=== PATIENT | male | born 1935 | race Caucasian/White ===

== ENCOUNTER → 2018-05-15 12:45 | Outpatient (CLI) | payer MEDICARE, SELFPAY ==
--- NOTE | 2018-05-15 12:49 | CT_ITS ---
STUDY: CT CHEST WITH CONTRAST REASON FOR EXAM: Male, 82 years old. Left lower lobe pulmonary lesion. Longtime smoker. RADIATION DOSAGE (If Supplied By Facility): CTDIvol = ( 16.56 ) mGy, DLP = ( 725.16 ) mGycm TECHNIQUE: Transaxial imaging was performed following intravenous administration of 100 ml of Isovue 300 contrast material. Multiplanar coronal and sagittal images were reformatted. Individualized dose optimization techniques were used for this CT. COMPARISON: None. FINDINGS: Moderate sized left pleural effusion. Airspace disease in the lateral aspect of the left upper lobe. Dense consolidation or mass lesion in the posterior medial segment of the left lower lobe measuring 6.3 cm x 4 cm. Minimal right pleural thickening. There is a 3.6 cm x 3.8 cm soft tissue mass in the right infrahilar region with compression of the inferior wall of the right intermediate stem bronchus. A neoplastic process should be ruled out. There is loss of volume of the left hemithorax with shift of the heart and mediastinal structures towards the left side of the midline. Normal heart and pericardium. There are multiple small lymph nodes within the mediastinum, which are normal in size and morphology most compatible with reactive lymph hyperplasia. Normal hilar regions. Normal enhanced pulmonary arteries. Normal aorta arch and descending thoracic aorta. There are multi-level degenerative changes of the thoracic spine. Small hiatal hernia. CT/Chest WITH Contrast IMPRESSION: Moderate sized left pleural effusion with airspace disease in the lateral aspect of the left upper lobe as well as dense consolidation or mass lesion in the posteromedial segment of the left lower lobe. 3.6 cm x 3.8 cm mass in the right infrahilar region with underlying right basilar atelectasis and pleural thickening. Correlation with a PET scan is recommended. Electronically Signed: Momo Burns MD at 15:11 EDT Tel [phone], Service support ,
== END ==
PROVIDERS: Family Provider Family Medicine; PCP Family Medicine; Visit Provider Family Medicine
DX: R91.1 Solitary pulmonary nodule (principal)
CPT/HCPCS: 71260; Q9967

== ENCOUNTER → 2018-05-29 11:19 | Outpatient (CLI) | payer MEDICARE, SELFPAY ==
--- NOTE | 2018-05-29 11:44 | PET_ITS ---
EXAMINATION: FDG PET CT INDICATIONS: An 82-year-old male with reported history of carcinoma of the prostate presenting for restaging examination and evaluation of pulmonary nodularity. COMPARISON EXAMINATION: CT of the chest report dated 05/15/18. INDEX LESION SIZE SUV INTERPRETATION Right lower hemithorax pulmonary parenchyma, right lower lobe 37.8 mm x 44.9 mm (frame 202) 11.0 Fulfills quantitative criteria for viable neoplasm, definitive histopathologic analysis is recommended NON-INDEX LESION SIZE SUV INTERPRETATION Carinal level mediastinum, right thoracic perihilum 2.7 (max) Quantitative criteria for viable neoplasm are not fulfilled Left mid-lower hemithorax pulmonary parenchyma, non-nodular 2.0 (max) Quantitative criteria for viable neoplasm are not fulfilled TECHNIQUE: Following the intravenous administration of 15.9 mCi of F-18 deoxyglucose via the left hand, multiplanar image acquisitions of the neck, chest, abdomen and pelvis to level of mid thigh, obtained at one hour post radiopharmaceutical administration contemporaneously interpreted with the current CT of the neck, chest, abdomen and pelvis to level of mid thigh, dated 05/29/[address] of the chest report dated 05/15/18 reveal: SERUM GLUCOSE LEVEL: 96 mg/dl. HEIGHT: 72 inches. WEIGHT: 253 lbs. FINDINGS: 1. Increased glucose concentration is observed in the right mid posteromedial hemithorax pulmonary parenchyma, right lower lobe, perispinal in location generating a calculated maximum standard uptake value of 11.0. The maximal axial diameter of the corresponding parenchymal density-mass on review of CT of the thorax dated 05/29/18 is 37.8 mm (transverse) x 44.9 mm (AP). 2. An increase in glucose metabolism is defined in the carinal level mediastinum, right thoracic perihilum generating a calculated maximum standard uptake value of 2.7. 3. Linear increased glucose concentration is observed in the left mid hemithorax pulmonary parenchyma, left lower posterior lung zone generating a calculated standard uptake value of 2.0. Quantitative criteria for viable neoplasm are not fulfilled. Normal physiologic distribution of the radiopharmaceutical is apparent in the hepatic (3.3) and splenic parenchyma, both renal units, bladder and visualized intestinal tract. There is symmetric and preserved glucose metabolism noted in the visualized portion of the frontal, occipital, temporal and parietal lobes of the cerebral cortex, as well as cerebral hemispheres and basal ganglia. Diffuse intestinal tract activity is noted throughout all four quadrants of the abdominal-pelvic retroperitoneum, mesentery consistent with normal physiologic distribution of the radiopharmaceutical. Prominent glucose metabolism is defined in the descending thoracic aorta. Pertinent CT findings are as follows. CHEST: Bilateral hemithorax pleural effusions demonstrate no evidence of increased glucose metabolism. Atherosclerotic calcification is defined in the thoracic aorta without evidence of dilatation, aneurysm formation. Coronary arterial calcification is observed. Mediastinal and bilateral axillary soft tissue densities are ametabolic. ABDOMEN AND PELVIS: Atherosclerotic calcification is defined in the abdominal aorta without evidence of dilatation, aneurysm formation. Abdominal-pelvic arterial calcification is observed. Cortical cyst formation appears evident in the bilateral kidneys, the largest of which demonstrates a maximal axial diameter of 21.1 mm (AP). Calcifications are defined in the left kidney. Right-left inguinal soft tissue densities are non-glucose avid. SKELETAL: Degenerative changes defined in the cervical, thoracic and lumbar spine demonstrate no evidence for glucose hypermetabolism. PET/PET/CT Tumor Base -Thigh Init IMPRESSION: 1. Increased glucose metabolism manifest in the right mid posteromedial hemithorax pulmonary parenchyma, right lower lobe fulfills quantitative criteria for viable neoplasm. Definitive histopathologic analysis is recommended. (Fisher et al, Annals of Internal Medicine, 138:724, 2003). 2. Mediastinal and right thoracic perihilar increased glucose concentration does not fulfill quantitative criteria for viable neoplasm. (Tiffanie et al, Journal of Clinical Oncology 16:2142, 1998). 3. Mild increased glucose concentration observed in the left mid-lower posterior lung zones does not fulfill quantitative criteria for malignant transformation. 4. Facilitated FDG concentration noted in the descending thoracic aorta is commensurate with activated leukocytes associated with atherosclerotic plaque formation. (Augustus et al, Clinical Nuclear Medicine 29:93, 2004). Electronic Signature Byron Woo D.O. Electronically Signed: Byron Woo DO at 7:21 EDT Tel , Service support ,
== END ==
PROVIDERS: Family Provider Family Medicine; PCP Family Medicine; Visit Provider Nurse Practitioner Adult Health
DX: R91.8 Other nonspecific abnormal finding of lung field (principal); Z85.46 Personal history of malignant neoplasm of prostate
CPT/HCPCS: 78815; A9552; A4216

== ENCOUNTER → 2018-07-05 08:58 | Outpatient (CLI) | payer MEDICARE, SELFPAY ==
[2018-07-05] VITALS (9 sets, daily range): BP systolic 114–157; BP diastolic 48–71; PULSE 84–93; RESP 17–55; TEMP 36.9; O2SAT 88–98; BMI 30.3
--- NOTE | 2018-07-05 | ASPIGT_PTH ---
PATIENT: DANIEL DIAZ LOC: CT U#:[id number] AGE/SX: 89/M ROOM: RE07/05/[address]: Dr. Heladio Rios MD : 1935 BED: DIS: SPEC #: [id number] RECD: 07/05/18 11:16 STATUS: SUJATHA AVILAChristian #: [id number] BELL: 07/05/18 00:[address]: Heladio Rios DEPT: SURGICAL PATHOLOGY RECD BY: Max Arguelles Tissues: Right middle lobe of lung, NOS Procedures: FNA Specimen Adequacy Special Stain Group II Surgery Specimen Level IV Diff Quik Stain (control) Imprint (control) HEADER OPERATION: CT guided right lung biopsy PRE-OP DIAGNOSIS: Right lung mass TISSUE SUBMITTED: Right middle lobe lung mass, 20 gauge core x4 MICROSCOPIC DIAGNOSIS Right middle lobe lung mass, CT-guided core biopsy: Non-small cell carcinoma, favor squamous cell carcinoma. SJ:estuardo 8/16/18 COMMENT The specimen is evaluated at the time of CT-guided lung biopsy by Dr. Ayala. Immediate Evaluation: Pass #1 ? A few atypical cells noted suspicious for malignancy Pass #2 ? A few atypical cells noted. Immunohistochemistry ([id number]) supports the above diagnosis. If molecular studies on the tumor is needed, please notify the laboratory. Case has been reviewed in consultation with Dr. Russell who concurs with the above diagnosis. IDC:AM MICROSCOPIC DESCRIPTION Slides are reviewed. GROSS DESCRIPTION Received in fixative is one container labeled with the patient's name and designated right lung. The specimen consists of multiple irregular and elongated fragments of light aragon soft tissue that in aggregate measure 1 x 0.5 x <0.1 cm. The specimen is totally submitted in one cassette. / PATRICK:estuardo 07/05/18 TC:0 CPT: 79962, 69999, 40344
--- NOTE | 2018-07-05 | IMM_PTH ---
PATIENT: DANIEL DIAZ LOC: CT U#:[id number] AGE/SX: 89/M ROOM: RE07/05/[address]: Dr. Heladio Rios MD : 1935 BED: DIS: SPEC #: [id number] RECD: 07/06/18 12:50 STATUS: SUJATHA AUSTINChristian #: [id number] BELL: 07/05/18 00:[address]: Heladio Rios DEPT: IMMUNOHISTOCHEMISTRY RECD BY: Celi Farmer Tissues: Lung, NOS Procedures: RCC (add) NAPSIN A (add) CK20 (add) CK5-6 (add) CK8 (add) HEP PAR (add) PSA (add) TTF1 (add) P40 (add) CK7 (initial) PHYSICIAN & INSTITUTION [place] [address] SPECIMEN INFORMATION: Tissue Source: Right middle lobe lung mass Clinical Info: Right lung mass Specimen Number: [id number] CPT code: 61698, 47722 x9 METHODOLOGY: Deparaffinized sections of prefer/formalin-fixed tissue or PAP/DQ stained slides are incubated with monoclonal/polyclonal antibodies/oligonucleotide probes. Localization is made via biotin free immunoperoxidase method. Appropriate controls are performed and reacted as expected. Results on target cell population are indicated in the following table: RESULTS: ANTIBODY / CLONE RESULT CK7 (OV-TL12/30) negative CK8 (24lkmsJ64) positive CK20 (KS20.8) negative TTF-1 (8G7G3/1) negative Napsin A (Rabbit Polyclonal) negative HepPar (OCh1E5) negative RCC (PN-15) negative PSA (ER-PR8) negative CK5-6 (D5 & 1684) positive P40 (BC28) positive These tests were developed and their performance characteristics determined by [facility]. They may not have been cleared or approved by the U.S. Food and Drug Administration. The FDA has determined that such clearance or approval is not necessary. INTERPRETATION: Right middle lobe lung mass, CT-guided biopsy: Non-small cell carcinoma, favor squamous cell carcinoma. ISSA:estuardo 07/07/18
== END ==
PROVIDERS: Family Provider Family Medicine; PCP Family Medicine; Visit Provider Family Medicine
DX: R91.8 Other nonspecific abnormal finding of lung field (principal)
CPT/HCPCS: 32405; 71046; 77012; 88172; 88305; 88313; 88341; 88342; 99156; 99157; J7040; A4216

== ENCOUNTER → 2018-07-27 10:07 | Outpatient (CLI) | payer MEDICARE, SELFPAY ==
--- NOTE | 2018-07-27 | FLU_PTH ---
PATIENT: DANIEL DIAZ LOC: MRI U#:[id number] AGE/SX: 89/M ROOM: RE07/27/[address]: Dr. Jimmie Teran MD : 1935 BED: DIS: SPEC #: [id number] RECD: 07/27/18 14:11 STATUS: SUJATHA REChristian #: [id number] BELL: 07/27/18 00:[address]: Jimmie Teran DEPT: CYTOLOGY RECD BY: Horacio Caceres ENTERED: 07/27/18 14:11 SP TYPE: Fluid OTHR DR: Dr. Heladio Rios MD Tissues: THORACIC FLUID Procedures: Pap Stain (control) Special Stain Group II Surgery Specimen Level IV Cell Block Cytospin Fluid HEADER OPERATION: Ultrasound-guided thoracentesis - left PRE-OP DIAGNOSIS: Pleural effusion TISSUE SUBMITTED: Thoracentesis fluid for cytology DIAGNOSIS CYTOLOGY Thoracentesis fluid for cytology (cytospin and cell block): Negative for malignant cells. AM:estuardo 07/28/18 COMMENT The specimen primarily contains polymorphous lymphocytes and rare reactive mesothelial cells. Immunohistochemistry ([id number]) supports the above diagnosis. CYTOLOGY STUDY Slides are reviewed. CYTOLOGY GROSS Received is 100 ml of red, cloudy fluid labeled with the patient's name and and designated per the requisition as thoracentesis. Submitted for cytology preparation including cell block. 07/27/18 TC:3 CPT: 41734, 74431
--- NOTE | 2018-07-27 | IMM_PTH ---
PATIENT: DANIEL DIAZ LOC: MRI U#:[id number] AGE/SX: 89/M ROOM: RE07/27/[address]: Dr. Jimmie Teran MD : 1935 BED: DIS: SPEC #: [id number] RECD: 07/28/18 11:34 STATUS: SUJATHA REQ #: [id number] BELL: 07/27/18 00:[address]: Jimmie Teran DEPT: IMMUNOHISTOCHEMISTRY RECD BY: Celi Farmer ENTERED: 07/28/18 11:35 SP TYPE: IMMUNO OTHR DR: Dr. Heladio Rios MD Tissues: THORACIC FLUID Procedures: CD138 (add) CD20 (add) CD45 (add) CD5 (add) CD79A (add) CD3 (initial) PHYSICIAN & INSTITUTION [place] [address] SPECIMEN INFORMATION: Tissue Source: Thoracentesis fluid Clinical Info: Pleural effusion Specimen Number: [id number] CPT code: 84215, 35162 x5 METHODOLOGY: Deparaffinized sections of prefer/formalin-fixed tissue or PAP/DQ stained slides are incubated with monoclonal/polyclonal antibodies/oligonucleotide probes. Localization is made via biotin free immunoperoxidase method. Appropriate controls are performed and reacted as expected. Results on target cell population are indicated in the following table: RESULTS: ANTIBODY / CLONE RESULT CD3 (PS1) positive, small lymphocytes CD5 (SP10) positive CD20 (L26) positive, rare CD45 (RP2/18) positive CD79a (11E3) positive, occasional CD138 (B-A38) negative These tests were developed and their performance characteristics determined by [facility]. They may not have been cleared or approved by the U.S. Food and Drug Administration. The FDA has determined that such clearance or approval is not necessary. INTERPRETATION: Thoracentesis fluid: Polytypic (benign) lymphoid population. AM:estuardo 07/31/18
[2018-07-27 11:06] LABS: Absolute Lymphocyte Count 1.07 X10^3/ul (0.83-4.51); Absolute Neutrophil Count 7.9 X10^3/uL (2.0-7.7); Basophil# 0.02 X10^3/uL; Basophil% 0.2 % (0-1); Eosinophil# 0.19 X10^3/uL; Eosinophils% 1.9 % (0-5); Hematocrit 38.2 % (40-54); Hemoglobin 12.1 g/dl (13.0-16.5); Lymphocyte # 1.07 X10^3/ul (4.0); Lymphocyte % 10.7 % (19-41); Mean Corp Hgb Conc 31.7 g/gl (32-36); Mean Corpuscular Hgb 28.8 pg (27.0-32.0); Mean Platelet Vol. 8.3 fl (6.2-12.0); Monocyte# 0.75 X10^3/uL; Monocyte% 7.5 % (0-10); Neutrophil # 7.91 X10^3/uL (2.7-7.7); Neutrophil % 79.5 % (47-70); Platelet Count 403 K/mm3 (150-450); RBC Distribution Width CV 12.9 % (11.6-14.6); RBC Distribution Width SD 43.1 fl (35.1-43.9)
[2018-07-27 11:07] LABS: Cytology, Body Fluid / CSF SEE PATHOLOGY REPORT
[2018-07-27 11:10] LABS: POSITIVE COUNT NO; POSITIVE DIFFERENTIAL NO; POSITIVE MORPHOLOGY NO
[2018-07-27 11:26] LABS: Creatinine, Serum 1.04 mg/dL (0.70-1.30); EST Glomerular Filtration Rate 73 mL/min (>60); Est Glom Filt Rate - Afr Amer 88 mL/min (>60)
[2018-07-27 11:31] LABS: Prothrombin Time (Protime)PT. 13.6 SECONDS (11.7-14.9)
[2018-07-27 11:32] LABS: Partial Thromboplast Time 40.1 Seconds (24.1-36.2)
[2018-07-27 12:45] VITALS: BP 115/56; PULSE 94; RESP 18; O2SAT 92; BMI 30.3
[2018-07-27 12:58] VITALS: BP 106/53; PULSE 97; RESP 20; O2SAT 92
[2018-07-27 13:17] VITALS: BP 115/62; PULSE 92; RESP 18; O2SAT 92
== END ==
PROVIDERS: Family Provider Family Medicine; PCP Family Medicine; Visit Provider Internal Medicine Medical Oncology
DX: Z01.812 Encounter for preprocedural laboratory examination (principal); Z01.818 Encounter for other preprocedural examination; C34.90 Malignant neoplasm of unspecified part of unspecified bronchus or lung; J90 Pleural effusion, not elsewhere classified
CPT/HCPCS: 32555; 70553; 71046; 82565; 85025; 85610; 85730; 88108; 88305; 88313; 88341; 88342; A9585

== ENCOUNTER → 2018-08-10 13:10 | Outpatient (CLI) | payer MEDICARE, SELFPAY ==
[2018-08-07 14:15] VITALS: BMI 30.4
--- NOTE | 2018-08-10 16:00 | PFTCOMP_ITS ---
COMPLETE PULMONARY FUNCTION TEST INTERPRETATION Brief HPI: Patient is an 82 year old male, currently under the care of Dr. Lake, who presents to [facility] for complete pulmonary function tests secondary to diagnosis of lung cancer. Respiratory therapist reports good effort and reproducible results. Interpretation: Forced expiration spirometry shows a very severe large airways obstructive ventilatory defect with an FEV1 of 35% predicted. There is no significant bronchodilator response by ATS criteria. Spirograms are of good quality and plateau slowly, indicating slowly emptying areas of the lungs. The respiratory flow volume loop shows decreased expiratory flow rates at all lung volumes consistent with airway obstruction. Lung volumes by body plethysmography show a decreased total lung capacity at 4.58 L, 61% predicted. All other lung volumes are reduced symmetrically. Diffusion capacity by carbon monoxide is decreased at 45% predicted. The airway resistance is elevated. No previous pulmonary function tests were available for review. Impression: Very severe mixed ventilatory defect with a symmetric reduction in diffusing capacity. No previous studies are available for review.
== END ==
PROVIDERS: Family Provider Family Medicine; PCP Family Medicine; Visit Provider Student in an Organized Health Care Education/Training Program
DX: C34.90 Malignant neoplasm of unspecified part of unspecified bronchus or lung (principal)
CPT/HCPCS: 94060; 94726; 94729

== ENCOUNTER → 2018-11-22 14:03 | Outpatient (CLI) | payer MEDICARE, SELFPAY ==
[2018-08-07 14:15] VITALS: BMI 30.4
[2018-09-27 11:20] VITALS: BMI 29.0
--- NOTE | 2018-11-22 14:08 | CT_ITS ---
STUDY: CT CHEST WITH CONTRAST REASON FOR EXAM: Male, 83 years old. Lung cancer. History of prostate cancer. COPD. RADIATION DOSAGE (If Supplied By Facility): CTDIvol = ( 16.12 ) mGy, DLP = ( 759.34 ) mGycm TECHNIQUE: Transaxial imaging was performed following intravenous administration of 100 ml of Isovue 300 contrast material. Individualized dose optimization techniques were used for this CT. COMPARISON: None. FINDINGS: Again noted is volume loss on the left with areas of scarring and consolidation with air bronchograms as well as moderate left effusion. Unsure if this is status post surgical intervention versus radiation therapy. Remaining aerated portions of the left lung are essentially clear. There is hyperinflated right lung with flat hemidiaphragm. Small amount of right basilar atelectasis and scarring is noted. Small nodule in the right lung base measuring 3.3 mm. No acute air space disease throughout the right lung. Leftward mediastinal shift is noted. No evidence of large pulmonary embolism. Decreased soft tissue prominence in the medial aspect of the right lower lobe adjacent to the right mainstem bronchus. Currently, soft tissue in this area measures 4.6 cm AP by 1.6 cm wide. Heart size is within normal limits. Normal pericardium. Stable small mediastinal lymph nodes are identified. Normal hilar regions. Normal enhanced pulmonary arteries. Normal aorta arch and descending thoracic aorta. There are multi-level degenerative changes of the thoracic spine. There is no demonstrated abnormality of the visualized upper abdomen. CT/Chest WITH Contrast IMPRESSION: 1. Again noted is left-sided volume loss with scarring, consolidation and air bronchograms as well as effusion. Again noted is leftward mediastinal shift. 2. Decreased soft tissue masslike consolidation along the medial aspect of the right lower lobe as detailed above 3. Essentially clear right lung with some scarring in the right lung base 4. Stable mediastinal lymph nodes 5. Small right lower lobe pulmonary nodule Electronically Signed: Samy Estrada DO at 12:36 EST Tel , Service support ,
[2018-11-22 14:21] LABS: EGFR FINGERSTICK > 60.0000 mL/min (>60)
== END ==
PROVIDERS: Family Provider Family Medicine; PCP Family Medicine; Referring Provider Internal Medicine Medical Oncology; Visit Provider Internal Medicine Medical Oncology
DX: C34.31 Malignant neoplasm of lower lobe, right bronchus or lung (principal)
CPT/HCPCS: 71260; Q9967

== ENCOUNTER → 2018-12-29 14:50 | Outpatient (CLI) | payer MEDICARE, SELFPAY ==
[2018-08-07 14:15] VITALS: BMI 30.4
[2018-12-11 09:44] VITALS: BMI 29.9
--- NOTE | 2018-12-29 14:54 | RAD_ITS ---
STUDY: X-RAY CHEST REASON FOR EXAM: Male, 83 years old. Shortness breath. Pleural effusion. Lung cancer. TECHNIQUE: Frontal and lateral views of the chest. COMPARISON: Chest x-ray 07/27/2018, CT scan 11/22/2018. FINDINGS: Continued markedly abnormal left hemithorax, with continued volume loss and extensive opacification in the mid and lower medial thorax consisting of combination of pleural fluid which may be loculated, probable atelectasis, possible infiltrate cannot exclude mass. Right lung is adequately expanded and clear. Underlying COPD. Heart size difficult to assess because of overlying density but probably mild cardiomegaly. Degenerative changes of the bones. Grossly negative visualized upper abdomen. RAD/Chest PA and Lateral IMPRESSION: No significant change. Continued complex opacities of the left hemithorax with volume loss. Electronically Signed: Adrian Alas MD at 15:51 EST , Service support ,
== END ==
PROVIDERS: Family Provider Family Medicine; PCP Family Medicine; Referring Provider Nurse Practitioner Acute Care; Visit Provider Nurse Practitioner Acute Care
DX: R06.00 Dyspnea, unspecified (principal)
CPT/HCPCS: 71046

== ENCOUNTER → 2019-01-05 07:08 | Outpatient (CLI) | payer MEDICARE, SELFPAY ==
[2018-08-07 14:15] VITALS: BMI 30.4
[2018-12-11 09:44] VITALS: BMI 29.9
--- NOTE | 2019-01-05 07:32 | US_ITS ---
PROCEDURE: ULTRASOUND GUIDED THORACENTESIS. DATE: January 05, 2019. INDICATION: Male, 83 years old. Left pleural effusion PHYSICIAN: Momo Burns M.D. PROCEDURE: The risks, benefits, and alternatives to the procedure were explained to the patient. The specific risks of bleeding, infection, and pneumothorax requiring chest tube insertion were discussed and accepted. Written informed consent was obtained. Ultrasonographic evaluation of the left lower pleural space was carried out. An adequate pocket was identified. The patient was placed in the sitting, upright position. The overlying skin was prepped and draped in sterile fashion. 1% lidocaine was administered subcutaneously for local anesthesia. Under ultrasound guidance, a 5 Kiswahili thoracentesis needle/catheter system was advanced into the left posterior lower pleural fluid collection. Approximately 820 mL of blood tinged fluid was drained. The catheter was removed, and a sterile dressing was applied. A specimen was collected and sent to the laboratory for analysis, as requested by the referring clinician. The patient tolerated the procedure well. A chest x-ray was ordered. US/Thoracentesis W US IMPRESSION: Ultrasound-guided left thoracentesis.. Electronically Signed: Momo Burns MD at 10:58 EST , Service support ,
[2019-01-05 07:42] LABS: Platelet Count 301 K/mm3 (150-450)
[2019-01-05 08:00] LABS: ALB/GLOB Ratio 0.6 RATIO (0.9-2.4); LDH 141 U/L (87-241); Protein, Total 7.9 g/dL (6.4-8.2)
[2019-01-05 08:16] LABS: Prothrombin Time (Protime)PT. 13.6 SECONDS (11.7-14.9)
[2019-01-05 08:17] LABS: Partial Thromboplast Time 37.5 Seconds (24.1-36.2)
--- NOTE | 2019-01-05 09:00 | RAD_ITS ---
STUDY: X-RAY CHEST REASON FOR EXAM: Male, 83 years old. Status post left thoracentesis. TECHNIQUE: AP inspiration and expiration views. COMPARISON: Comparison is made with prior examination dated December 29, 2018. FINDINGS: The patient is status post left thoracentesis. There is no evidence of pneumothorax. Stable pleural-parenchymal changes remain at the left lung base.. RAD/Chest Insp/Exp 2 View IMPRESSION: Status post left thoracentesis. There is no evidence of pneumothorax. Residual left pleural parenchymal changes. Electronically Signed: Momo Burns MD at 8:57 EST , Service support ,
--- NOTE | 2019-01-05 09:10 | FLU_PTH ---
PATIENT: DANIEL DIAZ LOC: U#:[id number] AGE/SX: 89/M ROOM: RE01/05/[address]: MARCY Benítez : 1935 BED: DIS: SPEC #: [id number] RECD: 01/05/19 09:10 STATUS: SUJATHA DA #: [id number] BELL: 01/05/19 09:[address]: Laura Allan NP DEPT: CYTOLOGY RECD BY: Daniel Hargrove ENTERED: 01/05/19 12:37 SP TYPE: Fluid OTHR DR: Dr. Heladio Rios MD Tissues: THORACIC FLUID Procedures: Special Stain Group II Surgery Specimen Level IV Cytospin Fluid Comments: @ Specimen number changed from [id number] to [id number] @ on 01/05/19 at 1502 by RGOOD. HEADER OPERATION: Ultrasound-guided left thoracentesis PRE-OP DIAGNOSIS: Pleural effusion TISSUE SUBMITTED: Thoracentesis fluid for cytology DIAGNOSIS CYTOLOGY Thoracentesis fluid for cytology (cytospin and cell block): Negative for malignant cells. AM:estuardo 01/08/19 COMMENT The specimen contains polymorphous lymphocytes. Clinical correlation is suggested. CYTOLOGY STUDY Slides are reviewed. CYTOLOGY GROSS Received is 100 ml of red cloudy fluid labeled with the patient's name and and designated per the requisition as thoracentesis. Submitted for cytology preparation including cell block. / 01/05/19 TC:5 CPT: 20674, 62155
[2019-01-05 09:14] LABS: Cytology, Body Fluid / CSF SEE PATHOLOGY REPORT
[2019-01-05 09:18] VITALS: BP 110/71; BP 110/74; BP 119/92; BP 132/61; BP 93/54; PULSE 62; PULSE 63; PULSE 77; PULSE 87; RESP 16; RESP 18; O2SAT 93; O2SAT 94; O2SAT 95
[2019-01-05 09:42] LABS: Body Fluid Mononuclear WBC % 95.3 %; Body Fluid Polynuclear WBC % 4.7 %; Body Fluid Total Cells Counted 1.734 10^3/ul
[2019-01-05 10:01] LABS: LDH,Body Fluid 178 Units/l (Not Establ.); Protein, Body Fluid 4.5 g/dL (Not Establ.)
[2019-01-05 10:28] LABS: Appearance/Body Fluid CLOUDY; Auto B Fluid Analyzer BKGD Ct COUNTS W/IN LIMITS (W/IN LIMITS); Body Fluid QC Type(s) BF1Q; Color/Body Fluid RED; Lymphocytes 87 %; Macrophages 6 %; Monocytes 2 %; Neutrophil (Segs) 5 %; Source- Body Fluid THORACENTESIS
[2019-01-08 13:39] LABS: Pathologist Comment/Body Fluid Reviewed
== END ==
PROVIDERS: Family Provider Family Medicine; PCP Family Medicine; Referring Provider Nurse Practitioner Acute Care; Visit Provider Nurse Practitioner Acute Care
DX: J90 Pleural effusion, not elsewhere classified (principal)
CPT/HCPCS: 32555; 36415; 71046; 83615; 84156; 84157; 85049; 85610; 85730; 87070; 87075; 87205; 88108; 88305; 88313; 89050

== ENCOUNTER → 2019-02-27 09:38 | Outpatient (CLI) | payer MEDICARE, SELFPAY ==
[2018-08-07 14:15] VITALS: BMI 30.4
[2019-02-27 09:05] VITALS: BMI 30.2
--- NOTE | 2019-02-27 09:45 | RAD_ITS ---
STUDY: X-RAY CHEST REASON FOR EXAM: Male, 83 years old. Worsening shortness of breath TECHNIQUE: PA and lateral views of the chest. COMPARISON: 01/05/19 FINDINGS: Right lung is hyperexpanded with chronic interstitial changes and development of small pleural effusion since the previous study. There is persistent opacifications in the inferior half the left hemithorax unchanged on the previous study suggesting a likely combination of effusion, atelectasis and perhaps infiltrate. Overall, little significant interval change noted since the previous study. Heart and mediastinum cannot be accurately evaluated due to the opacification in the left hemithorax. Peripheral calcifications noted in the thoracic aorta. There are diffuse degenerative changes of the visualized thoracic spine. Normal visualized ribs, clavicles, and shoulders. There is no demonstrated abnormality of the visualized soft tissue structures of the upper abdomen. RAD/Chest PA and Lateral IMPRESSION: Aside from a new small right pleural effusion, little significant change since the previous study. Electronically Signed: Cali Albrecht MD at 10:57 EDT , Service support ,
[2019-02-27 10:07] LABS: Platelet Count 282 K/mm3 (150-450)
[2019-02-27 10:27] LABS: Anion Gap 4 (5-15); BUN 23 mg/dL (7-18); BUN/Creat Ratio 21.7 RATIO (10-20); Calcium,Total 9.1 mg/dL (8.5-10.1); Chloride 94 mmol/L (98-107); Creatinine, Serum 1.06 mg/dL (0.70-1.30); EST Glomerular Filtration Rate 71 mL/min (>60); Est Glom Filt Rate - Afr Amer 86 mL/min (>60); Glucose 108 mg/dL (74-106); Sodium Level 128 mmol/L (136-145)
[2019-02-27 11:35] LABS: Red Blood Count 4.42 M/mm3 (4.6-6.2); White Blood Count 9.4 K/mm3 (4.4-11.0)
[2019-02-27 11:36] LABS: Differential Indicated SCAN CRITERIA MET; Hematocrit 39.8 % (40-54); Mean Corp Hgb Conc 32.7 g/gl (32-36); Mean Corpuscular Hgb 29.4 pg (27.0-32.0); Mean Platelet Vol. 8.3 fl (6.2-12.0); POSITIVE COUNT NO; POSITIVE DIFFERENTIAL YES; POSITIVE MORPHOLOGY NO
[2019-02-27 11:37] LABS: Basophil% 0.2 % (0-1); Eosinophils% 1.4 % (0-5); Lymphocyte % 5.7 % (19-41); Monocyte% 7.3 % (0-10); Neutrophil % 84.1 % (47-70)
[2019-02-27 11:38] LABS: Absolute Neutrophil Count 7.9 X10^3/uL (2.0-7.7); Lymphocyte # 0.54 X10^3/ul (4.0)
[2019-02-27 11:39] LABS: Absolute Lymphocyte Count 0.54 X10^3/ul (0.83-4.51); Basophil# 0.02 X10^3/uL; Eosinophil# 0.13 X10^3/uL; Monocyte# 0.69 X10^3/uL
[2019-02-27 12:02] LABS: Platelet Estimate ADEQUATE (ADEQ); Red Cell Morphology NORM C+C NORMAL (NORM C&C)
[2019-02-27 12:08] LABS: BNP,B-Type NATRIURETIC PEPTIDE 61.9 pg/mL (0-100)
== END ==
LOC: LAB 09:44 → PAVLAB 10:08
PROVIDERS: Family Provider Family Medicine; PCP Family Medicine; Referring Provider Nurse Practitioner Acute Care; Visit Provider Nurse Practitioner Acute Care
DX: J90 Pleural effusion, not elsewhere classified (principal)
CPT/HCPCS: 36415; 71046; 80048; 83880; 85025

== ENCOUNTER → 2019-03-07 13:06 | Outpatient (CLI) | payer MEDICARE, SELFPAY ==
[2018-08-07 14:15] VITALS: BMI 30.4
[2019-02-27 09:05] VITALS: BMI 30.2
--- NOTE | 2019-03-07 | FLU_PTH ---
PATIENT: DANIEL DIAZ LOC: U#:[id number] AGE/SX: 89/M ROOM: RE03/07/[address]: MARCY Benítez : 1935 BED: DIS: SPEC #: [id number] RECD: 03/07/19 14:57 STATUS: SUJATHA DA #: [id number] BELL: 03/07/19 00:[address]: Laura Allan NP DEPT: CYTOLOGY RECD BY: Horacio Caceres ENTERED: 03/08/19 14:16 SP TYPE: Fluid OTHR DR: Dr. Heladio Rios MD Tissues: THORACIC FLUID Procedures: Special Stain Group II Surgery Specimen Level IV Cytospin Fluid HEADER OPERATION: Ultrasound-guided left thoracentesis PRE-OP DIAGNOSIS: Left pleural effusion TISSUE SUBMITTED: Thoracentesis fluid for cytology DIAGNOSIS CYTOLOGY Thoracentesis fluid for cytology (cytospin and cell block): Negative for malignant cells. ISSA:estuardo 03/09/19 COMMENT Please make reference to previous specimen ([id number]) right middle lobe lung mass, CT-guided core biopsy with diagnosis of non-mall cell carcinoma, favor squamous cell carcinoma and ([id number]) thoracentesis fluid for cytology and ([id number]) thoracentesis fluid for cytology with diagnosis of negative for malignant cells. CYTOLOGY STUDY Slides are reviewed. CYTOLOGY GROSS Received is 120 ml of red cloudy fluid labeled with the patient's name and and designated per the requisition as left thoracentesis. Submitted for cytology preparation including cell block. / 03/08/19 TC:5 CPT: 33316, 21147
--- NOTE | 2019-03-07 13:40 | US_ITS ---
PROCEDURE: ULTRASOUND GUIDED THORACENTESIS. DATE: March 07, 2019. INDICATION: Male, 83 years old. Left pleural effusion PHYSICIAN: Momo Burns M.D. PROCEDURE: The risks, benefits, and alternatives to the procedure were explained to the patient. The specific risks of bleeding, infection, and pneumothorax requiring chest tube insertion were discussed and accepted. Written informed consent was obtained. Ultrasonographic evaluation of the left lower pleural space was carried out. An adequate pocket was identified. The patient was placed in the sitting, upright position. The overlying skin was prepped and draped in sterile fashion. 1% lidocaine was administered subcutaneously for local anesthesia. Under ultrasound guidance, a 5 [place]ian thoracentesis needle/catheter system was advanced into the left posterior lower pleural fluid collection. Approximately 570 mL of blood tinged lucía-colored fluid was drained. The catheter was removed, and a sterile dressing was applied. A specimen was collected and sent to the laboratory for analysis, as requested by the referring clinician. The patient tolerated the procedure well. A chest x-ray was ordered. US/Thoracentesis W US IMPRESSION: Ultrasound-guided left thoracentesis. Electronically Signed: Momo Burns, at 15:17 EDT , Service support ,
[2019-03-07 13:50] LABS: Absolute Lymphocyte Count 0.79 X10^3/ul (0.83-4.51); Absolute Neutrophil Count 6.7 X10^3/uL (2.0-7.7); Basophil# 0.02 X10^3/uL; Basophil% 0.2 % (0-1); Eosinophils% 2.3 % (0-5); Hematocrit 37.5 % (40-54); Hemoglobin 12.3 g/dl (13.0-16.5); Lymphocyte # 0.79 X10^3/ul (4.0); Lymphocyte % 9.1 % (19-41); Mean Corp Hgb Conc 32.8 g/gl (32-36); Mean Corpuscular Hgb 29.6 pg (27.0-32.0); Mean Corpuscular Volume 90.1 fL (80-94); Mean Platelet Vol. 8.1 fl (6.2-12.0); Monocyte# 0.95 X10^3/uL; Monocyte% 10.9 % (0-10); Neutrophil # 6.71 X10^3/uL (2.7-7.7); Neutrophil % 77.3 % (47-70); Platelet Count 317 K/mm3 (150-450); RBC Distribution Width CV 13.2 % (11.6-14.6); RBC Distribution Width SD 42.8 fl (35.1-43.9); Red Blood Count 4.16 M/mm3 (4.6-6.2); White Blood Count 8.7 K/mm3 (4.4-11.0)
[2019-03-07 13:51] LABS: POSITIVE COUNT NO; POSITIVE DIFFERENTIAL NO; POSITIVE MORPHOLOGY NO
[2019-03-07 14:05] LABS: ALB/GLOB Ratio 0.5 RATIO (0.9-2.4); Globulin 5.2 g/dL (2.2-4.2); LDH 116 U/L (87-241); Protein, Total 7.7 g/dL (6.4-8.2)
[2019-03-07 14:11] LABS: International Normalized Ratio 1.1; Prothrombin Time (Protime)PT. 13.6 SECONDS (11.7-14.9)
[2019-03-07 14:12] LABS: Partial Thromboplast Time 38.2 Seconds (24.1-36.2)
--- NOTE | 2019-03-07 14:40 | RAD_ITS ---
STUDY: X-RAY CHEST REASON FOR EXAM: Male, 83 years old. The patient is status post left thoracentesis. TECHNIQUE: AP inspiration and expiration views. COMPARISON: Comparison is made with prior study dated February 27, 2019. FINDINGS: The patient is status post left thoracentesis. There is no evidence of pneumothorax following the thoracentesis. Persistent pleural parenchymal changes at the left lung base with mass lesion in the left lung. Persistent infiltrate in the right upper lobe. RAD/Chest Insp/Exp 2 View IMPRESSION: Status post left thoracentesis. There is no evidence of pneumothorax. Electronically Signed: Momo Burns, at 14:50 EDT , Service support ,
[2019-03-07 14:55] VITALS: BP 102/45; BP 93/49; BP 98/54; PULSE 76; PULSE 77; PULSE 79; RESP 16; RESP 18; O2SAT 94; O2SAT 95
[2019-03-07 14:57] LABS: Cytology, Body Fluid / CSF SEE PATHOLOGY REPORT
[2019-03-07 15:41] LABS: LDH,Body Fluid 141 Units/l (Not Establ.); Protein, Body Fluid 3.9 g/dL (Not Establ.)
[2019-03-07 15:57] LABS: Body Fluid Mononuclear WBC # 1.172 10^3/uL; Body Fluid Mononuclear WBC % 96.6 %; Body Fluid Polynuclear WBC # 0.041 10^3/uL; Body Fluid Polynuclear WBC % 3.4 %; Body Fluid Total Cells Counted 1.223 10^3/ul; White Blood Count/Body Fluid 1.213 10^3/uL
[2019-03-07 20:16] LABS: Lymphocytes 16 %; Monocytes 84 %; Source- Body Fluid THORACENTESIS
[2019-03-07 20:17] LABS: Appearance/Body Fluid CLOUDY; Body Fluid QC Type(s) BF1Q; Color/Body Fluid PINK
[2019-03-07 20:18] LABS: Auto B Fluid Analyzer BKGD Ct COUNTS W/IN LIMITS (W/IN LIMITS)
[2019-03-08 14:09] LABS: Pathologist Comment/Body Fluid Reviewed
== END ==
PROVIDERS: Family Provider Family Medicine; PCP Family Medicine; Referring Provider Nurse Practitioner Acute Care; Visit Provider Nurse Practitioner Acute Care
DX: I50.9 Heart failure, unspecified (principal); R06.02 Shortness of breath
CPT/HCPCS: 32555; 36415; 71046; 83615; 84156; 84157; 85025; 85610; 85730; 87070; 87075; 87205; 88108; 88305; 88313; 89050

== ENCOUNTER → 2019-03-21 13:22 | Outpatient (CLI) | payer MEDICARE, SELFPAY ==
[2018-08-07 14:15] VITALS: BMI 30.4
[2019-03-12 12:42] VITALS: BMI 29.6
--- NOTE | 2019-03-21 13:27 | CT_ITS ---
STUDY: CT CHEST WITH CONTRAST REASON FOR EXAM: Male, 83 years old. Lung cancer follow-up, history of prostate cancer, hypertension, COPD. RADIATION DOSAGE (If Supplied By Facility): CTDIvol = ( 17.86 ) mGy, DLP = ( 757.69 ) mGycm TECHNIQUE: Transaxial 2.5 mm imaging was performed following intravenous administration of 100mL IV Isovue 300. Multiplanar coronal and sagittal images were reformatted. Individualized dose optimization techniques were used for this CT. COMPARISON: Chest x-ray March 07, 2019, February 27, 2019. CT chest 11/22/2018. CT chest 08/08/2018 FINDINGS: Small stable 0.2 cm calcified nodule anterior right upper lobe. Stable hyperinflation, distortion of parenchyma in the right lower lobe, posterior medial right lower lobe volume loss, small calcified nodule in the right lower lobe 0.38 cm image 91 series 4. Increase of interstitial airspace opacification involving the right upper lobe with areas of consolidation and air bronchograms. There is mild bronchial opacification. There is stable volume loss in the left hemithorax with shift of heart, mediastinum and trachea to the left, stable distortion of parenchyma in the left apex consistent with scarring, stable swirled pattern of parenchyma opacification air bronchograms in the left lower lobe possibly round atelectasis, stable opacification in the left upper lobe with adjacent distortion of parenchyma, narrowing of the central bronchi. The loculated left pleural effusion has slightly decreased in volume. Normal heart and pericardium. Stable mediastinal lymph nodes borderline in size to minimally enlarged in the pretracheal, right paratracheal space and right hilum. Normal left hilar regions. Normal enhanced pulmonary arteries. There is atherosclerotic tortuosity of the aortic arch and descending thoracic aorta. There are multi-level degenerative changes of the thoracic spine. There is demineralization of osseous structures. Bilateral perirenal stranding incompletely imaged. Pancreas involution. No cystic or solid mass within the liver detected. CT/Chest WITH Contrast IMPRESSION: Persistent volume loss in the left hemithorax with shift of heart and mediastinum to the left, scarring, consolidation, possible round atelectasis in the left base. Slight decrease in size of the loculated left pleural effusion. Increased airspace opacification in the right upper lobe with opacification of bronchi possible inflammatory/infectious in nature superimposed on chronic interstitial lung disease. Follow-up to resolution recommended. No significant change op borderline size to minimally enlarged mediastinal and right hilar lymph nodes. Small calcified nodule in the right lower lobe and right upper lobe are stable. Electronically Signed: Roopa Camargo MD at 5:10 EDT , Service support ,
== END ==
PROVIDERS: Family Provider Family Medicine; PCP Family Medicine; Referring Provider Internal Medicine Medical Oncology; Visit Provider Internal Medicine Medical Oncology
DX: C34.31 Malignant neoplasm of lower lobe, right bronchus or lung (principal)
CPT/HCPCS: 71260; Q9967

== ENCOUNTER 2019-04-19 02:44 | Observation (INO) | payer MEDICARE, SELFPAY ==
[2018-08-07 14:15] VITALS: BMI 30.4
[2019-03-26 13:53] VITALS: BMI 29.1
[2019-04-19] VITALS (14 sets, daily range): BP systolic 93–125; BP diastolic 45–63; PULSE 69–114; RESP 16–30; TEMP 36.6–37; O2SAT 90–96; BMI 29.7; BMI 29.3
--- NOTE | 2019-04-19 03:14 | EKG12_ITS ---
Test Reason : ABD PAIN Blood Pressure : / mmHG Vent. Rate : 107 BPM Atrial Rate : 107 BPM P-R Int : 168 ms QRS Dur : 098 ms QT Int : 334 ms P-R-T Axes : 048 077 033 degrees QTc Int : 445 ms Sinus tachycardia Low voltage QRS Borderline ECG Confirmed by ROWAN STYLES, ERIN ([id number]), video news editor AGNES MARCELINO ([id number]) on 04/23/2019 1:10:06 PM Referred By: Raoul Hay Confirmed By:ERIN DONAHUE MD
--- NOTE | 2019-04-19 03:14 | CT_ITS ---
STUDY: CT ABDOMEN AND PELVIS WITHOUT CONTRAST REASON FOR EXAM: Male, 83 years old. Abdominal pain RADIATION DOSAGE (If Supplied By Facility): CTDIvol = ( 14.08 ) mGy, DLP = ( 780.94 ) mGycm TECHNIQUE: Transaxial images were obtained from the dome of the diaphragm to the symphysis pubis without oral contrast, and without intravenous contrast. Sagittal and coronal images were reconstructed. Individualized dose optimization techniques were used for this CT. COMPARISON: None. FINDINGS: Evaluation is limited by lack of IV and oral contrast material. Atelectasis/scarring within the lungs. Small calcified pulmonary nodules likely granuloma. Tiny right pleural effusion. Partial visualization of a small to moderate left pleural effusion. Adjacent bilateral atelectasis/infiltrates. Small pericardial effusion. Loculated left pleural effusion. Coronary artery calcifications. Normal unenhanced liver. Normal gallbladder and extrahepatic biliary system. Normal unenhanced spleen. Partial fatty atrophy involving the pancreas. There is a 1.3 cm area of low attenuation within the region of the pancreatic head. Normal unenhanced bilateral adrenal glands. Bilateral nephrolithiasis. Largest on the right measuring 4 mm. On the left there is a 2.6 cm stone within the renal pelvis. Additional left nephrolithiasis identified. There is mild bilateral nonspecific perinephric stranding. No significant hydronephrosis identified. There is a low-attenuation 1.8 cm structure within the right kidney likely representing a cyst. There is an 8 mm hyperdensity within the right kidney which may represent hyperdense/proteinaceous cyst however ultrasound would be recommended on a nonemergent basis to further evaluate. There is a small hiatal hernia. There is a 1.4 cm short axis lymph node adjacent to the esophagus at the esophageal hiatus. There is nonspecific. Normal small intestine. There are multiple colonic diverticula consistent with diverticulosis. The appendix is visualized and appears normal. There is diffuse atherosclerotic calcification of the abdominal aorta, without a demonstrated aneurysm. Cannot evaluate for dissection due to lack of IV contrast. Nonspecific subcentimeter short axis mesenteric and retroperitoneal lymph nodes. There is a Avila catheter with the balloon in the bladder decompressing the bladder limiting its evaluation. Normal abdominal wall. There are diffuse degenerative changes of the visualized lumbar spine. Degenerative changes of the bilateral hips. There is diffuse neural foraminal narrowing with moderate to severe narrowing at L3-L4 on the right and L4-L5 bilaterally. There is a large posterior disc osteophyte complex L5-S1 with moderate to severe canal narrowing. There is moderate narrowing of the canal at L2-L3. There is severe canal narrowing at L3-L4 and L4-L5 from posterior disc bulges and ligamentum flavum hypertrophy. CT/Abdomen/Pelvis without Cont IMPRESSION: Multilevel degenerative changes with areas of severe narrowing as discussed above. MRI may be performed to further evaluate as clinically indicated. Bilateral nephrolithiasis. There is no significant hydronephrosis identified. There is nonspecific perinephric stranding which may be age-related however if there is concern for infectious process correlate with urinalysis. Small pericardial effusion. Bilateral pleural effusions with adjacent atelectasis/infiltrate. Effusion on the left appears loculated. Area of low attenuation within the pancreatic head incompletely characterize on this noncontrast enhanced study. Recommend correlation with prior studies for stability versus ultrasound to further evaluate. This may represent focally dilated duct, pseudocyst or cystic neoplasm. 4 There are multiple renal cysts present. There is a hyperdense structure within the right kidney which may represent a hyperdense/proteinaceous cyst however the noncontrast study is limited and correlate with ultrasound on a nonemergent basis as underlying neoplasm cannot be totally excluded. No CT evidence for diverticulitis or appendicitis. Other findings as discussed above. Electronically Signed: Anjel Roberto, at 4:50 EDT Tel , Service support ,
--- NOTE | 2019-04-19 03:14 | RAD_ITS ---
STUDY: X-RAY CHEST REASON FOR EXAM: Male, 83 years old. Shortness of breath TECHNIQUE: Single frontal view of the chest. COMPARISON: March 07, 2019 FINDINGS: Increased left pleural effusion. Tiny right pleural effusion similar to prior study. Chronic lung changes are seen. Similar appearance to the left mid and lower lung zone pulmonary opacity. Emphysematous changes. No pneumothorax identified. Cardiomegaly. Aortic calcifications. There are diffuse degenerative changes of the visualized thoracic spine. There is degenerative osteoarthritis of the bilateral shoulders. There is no demonstrated abnormality of the visualized soft tissue structures of the upper abdomen. RAD/Chest 1 View (Portable) IMPRESSION: Increased left pleural effusion. Similar appearance to the pulmonary opacities within the left mid and lower lung zones. Cardiomegaly. Similar appearance to the right tiny effusion. Electronically Signed: Anjel Roberto, at 3:53 EDT Tel , Service support ,
[2019-04-19 03:28] LABS: Absolute Lymphocyte Count 0.55 X10^3/ul (0.83-4.51); Absolute Neutrophil Count 12.8 X10^3/uL (2.0-7.7); Basophil# 0.01 X10^3/uL; Basophil% 0.1 % (0-1); Differential Indicated SCAN CRITERIA MET; Eosinophil# 0.01 X10^3/uL; Eosinophils% 0.1 % (0-5); Hematocrit 38.1 % (40-54); Hemoglobin 12.7 g/dl (13.0-16.5); Lymphocyte # 0.55 X10^3/ul (4.0); Lymphocyte % 3.8 % (19-41); Mean Corp Hgb Conc 33.3 g/gl (32-36); Mean Corpuscular Hgb 29.6 pg (27.0-32.0); Mean Corpuscular Volume 88.8 fL (80-94); Mean Platelet Vol. 8.2 fl (6.2-12.0); Monocyte% 7.6 % (0-10); Neutrophil # 12.79 X10^3/uL (2.7-7.7); Neutrophil % 88.2 % (47-70); POSITIVE COUNT NO; POSITIVE DIFFERENTIAL YES; POSITIVE MORPHOLOGY NO; Platelet Count 317 K/mm3 (150-450); RBC Distribution Width CV 13.5 % (11.6-14.6); RBC Distribution Width SD 44.2 fl (35.1-43.9); Red Blood Count 4.29 M/mm3 (4.6-6.2); White Blood Count 14.5 K/mm3 (4.4-11.0)
[2019-04-19 03:49] LABS: ALB/GLOB Ratio 0.5 RATIO (0.9-2.4); AST(SGOT) 27 U/L (15-37); Alanine Aminotransfer ALT/SGPT 36 U/L (16-61); Albumin, Serum 2.5 g/dL (3.2-5.0); Alkaline Phosphatase 159 U/L (45-117); Anion Gap 9 (5-15); BUN 27 mg/dL (7-18); BUN/Creat Ratio 20.6 RATIO (10-20); Calcium,Total 8.9 mg/dL (8.5-10.1); Chloride 93 mmol/L (98-107); Creatinine, Serum 1.31 mg/dL (0.70-1.30); EST Glomerular Filtration Rate 56 mL/min (>60); Est Glom Filt Rate - Afr Amer 67 mL/min (>60); Estimated Creatinine Clearance 52.86 ml/min; Globulin 5.2 g/dL (2.2-4.2); Glucose 124 mg/dL (74-106); Lipase 57 U/L (73-393); Potassium 4.6 mmol/L (3.5-5.1); Protein, Total 7.7 g/dL (6.4-8.2); Sodium Level 131 mmol/L (136-145)
[2019-04-19 04:13] LABS: Color, Urine Yellow (Yellow); Glucose, Dipstick Normal (Normal); Ketone-Dipstick Negative (Negative); Leukocyte Esterase-Dipstick 500 /ul (Negative); Nitrite-Dipstick Negative (Negative); Occult Blood-Urine 50 /ul (Negative); Protein-Dipstick 100 mg/dl (Negative); Specific Gravity, Urine 1.015 (1.002-1.030); Urine Bilirubin Dipstick Negative (Negative); Urine Clarity Cloudy (Clear); Urine Urobilinogen Normal (Normal)
[2019-04-19 04:14] LABS: Amorphous Sediment 1+; Bacteria 2+ /hpf (None Seen); Red Blood Cells-Urine 5-10 SEEN /hpf (0-5); Squamous Epithelial Cells - UA 0-5 SEEN /hpf (0-5); Triple Phosphate Crystals Ur 1+ /hpf (<or=1+)
[2019-04-19 04:15] LABS: Mucous, Urine 1+ /hpf (<or=2+); White Blood Cells 10-25 SEEN /hpf (0-5)
--- NOTE | 2019-04-19 04:29 | NURSING ---
SEPSIS SCREENING DISCUSSED WITH . STATED PT DOES NOT MEET CRITERIA FOR SEPSIS AT THIS TIME.
--- NOTE | 2019-04-19 04:42 | ED.VISSUMM ---
- ER Visit Summary Date of Service: 04/19/19 Chief Complaint: Shortness of breath History of Present Illness: The patient is a 83 M presenting with shortness of breath and low O2 sat. Per [facility] patient's oxygen saturation was 85% on 2 L. He does not typically wear oxygen and they were unable to increase the oxygen level without further evaluation. Patient has a history of non-small cell lung cancer status post radiation. He has had pleural effusions in the past which required drainage. He states he has felt bloated and feels like his lungs and abdomen are filling with fluid. He has a history of CHF, COPD, hypertension, hyperlipidemia, GERD, chronic kidney disease. Physical Examination: Vitals are stable. Patient is afebrile. Alert no acute distress. 90% on 5L nasal cannula HEENT exam is unremarkable. Neck is supple. Lungs are diminished bilaterally. Heart is regular and tachycardic Abdomen is soft distended, nontender Extremities symmetric edema Skin is warm and dry. No focal neurologic deficit. Remainder of exam is unremarkable. Emergency Department Course and Treatment: EKG sinus tachycardia rate of 107. Chest x-ray shows increased left pleural effusion. Similar appearance to the pulmonary opacities within the left mid and lower lung zones. Cardiomegaly. Similar appearance to the right tiny effusion. CBC shows white count 14.5, hemoglobin 12.7. Chemistries show sodium 131, glucose 124, BUN 27, creatinine 1.31. Troponin 0.033. Alk phos 159. Lipase is normal. Urinalysis shows 10-25 white blood cells, 5-10 red blood cells, 0-5 epithelial cells. He has an indwelling Avila catheter. Urine culture was sent and he was given Rocephin IV. Lactic acid is 1.9. CT abdomen pelvis shows multilevel degenerative changes with areas of severe narrowing. Bilateral nephrolithiasis. There is no significant hydronephrosis identified. There is nonspecific perinephric stranding which may be age-related however if there is concern for infectious process correlate with urinalysis. Small pericardial effusion. Bilateral pleural effusions with adjacent atelectasis/infiltrate. Effusion on the left appears loculated. Area of low attenuation within the pancreatic head incompletely characterize on this noncontrast enhanced study. Recommend correlation with prior studies for stability versus ultrasound to further evaluate. This may represent focally dilated duct, pseudocyst or cystic neoplasm. There are multiple renal cysts present. There is a hyperdense structure within the right kidney which may represent a hyperdense/proteinaceous cyst however the noncontrast study is limited and correlate with ultrasound on a nonemergent basis as underlying neoplasm cannot be totally excluded. No CT evidence for diverticulitis or appendicitis. Due to his hypoxia and left pleural effusion, discussed with the hospitalist for admission. Disposition: Admission Impression: Left pleural effusion, hypoxia, cystitis This note was generated with [employer] dictation software. It may contain incorrect words, spelling, and punctuation that were not noted in review of the chart prior to signing ED Disposition - Plan for ED Patient:
--- NOTE | 2019-04-19 04:46 | ED.DCSUM_ITS ---
- ER Visit Summary Date of Service: 04/19/19 Chief Complaint: Shortness of breath History of Present Illness: The patient is a 83 M presenting with shortness of breath and low O2 sat. Per care home patient's oxygen saturation was 85% on 2 L. He does not typically wear oxygen and they were unable to increase the oxygen level without further evaluation. Patient has a history of non-small cell lung cancer status post radiation. He has had pleural effusions in the past which required drainage. He states he has felt bloated and feels like his lungs and abdomen are filling with fluid. He has a history of CHF, COPD, hypertension, hyperlipidemia, GERD, chronic kidney disease. Physical Examination: Vitals are stable. Patient is afebrile. Alert no acute distress. 90% on 5L nasal cannula HEENT exam is unremarkable. Neck is supple. Lungs are diminished bilaterally. Heart is regular and tachycardic Abdomen is soft distended, nontender Extremities symmetric edema Skin is warm and dry. No focal neurologic deficit. Remainder of exam is unremarkable. Emergency Department Course and Treatment: EKG sinus tachycardia rate of 107. Chest x-ray shows increased left pleural effusion. Similar appearance to the pulmonary opacities within the left mid and lower lung zones. Cardiomegaly. Similar appearance to the right tiny effusion. CBC shows white count 14.5, hemoglobin 12.7. Chemistries show sodium 131, glucose 124, BUN 27, creatinine 1.31. Troponin 0.033. Alk phos 159. Lipase is normal. Urinalysis shows 10-25 white blood cells, 5-10 red blood cells, 0-5 epithelial cells. He has an indwelling Avila catheter. Urine culture was sent and he was given Rocephin IV. Lactic acid is 1.9. CT abdomen pelvis shows multilevel degenerative changes with areas of severe narrowing. Bilateral nephrolithiasis. There is no signif icant hydronephrosis identified. There is nonspecific perinephric stranding which may be age-related however if there is concern for infectious process correlate with urinalysis. Small pericardial effusion. Bilateral pleural effusions with adjacent atelectasis/infiltrate. Effusion on the left appears loculated. Area of low attenuation within the pancreatic head incompletely characterize on this noncontrast enhanced study. Recommend correlation with prior studies for stability versus ultrasound to further evaluate. This may represent focally dilated duct, pseudocyst or cystic neoplasm. There are multiple renal cysts present. There is a hyperdense structure within the right kidney which may represent a hyperdense/proteinaceous cyst however the noncontrast study is limited and correlate with ultrasound on a nonemergent basis as underlying neoplasm cannot be totally excluded. No CT evidence for diverticulitis or appendicitis. Due to his hypoxia and left pleural effusion, discussed with the hospitalist for admission. Disposition: Admission Impression: Left pleural effusion, hypoxia, cystitis This note was generated with [employer] dictation software. It may contain incorrect words, spelling, and punctuation that were not noted in review of the chart prior to signing ED Disposition - Plan for ED Patient:
[2019-04-19] MEDS: Ceftriaxone 1 GM/50 ML BAG IV ×2 (05:33→21:24)
[2019-04-19 05:41] LABS: Lactic Acid 1.9 mmol/L (0.4-2.0)
--- NOTE | 2019-04-19 06:28 | US_ITS ---
PROCEDURE: ULTRASOUND GUIDED THORACENTESIS. DATE: April 19, 2019. INDICATION: Male, 83 years old. Left pleural effusion. PHYSICIAN: Momo Burns M.D. PROCEDURE: The risks, benefits, and alternatives to the procedure were explained to the patient. The specific risks of bleeding, infection, and pneumothorax requiring chest tube insertion were discussed and accepted. Written informed consent was obtained. Ultrasonographic evaluation of the left lower pleural space was carried out. An adequate pocket was identified. The patient was placed in the sitting, upright position. The overlying skin was prepped and draped in sterile fashion. 1% lidocaine was administered subcutaneously for local anesthesia. Under ultrasound guidance, a 5 [place] thoracentesis needle/catheter system was advanced into the left posterior lower pleural fluid collection. Approximately 250 mL of dark lucía-colored fluid was drained. The catheter was removed, and a sterile dressing was applied. The patient tolerated the procedure well. A chest x-ray was ordered. US/Thoracentesis W US IMPRESSION: Ultrasound-guided left thoracentesis. Electronically Signed: Momo Burns, at 10:15 EDT , Service support ,
--- NOTE | 2019-04-19 06:56 | HP.PCM_ITS ---
Problem List (1) Shortness of breath Status: Acute (2) Decreased pulse ox Status: Acute History of Present Illness Date of Admission: 04/19/19 Chief Complaint: Decreased pulse ox reading, shortness of breath The patient is a 83 year old M was seen in the emergency room at [facility] after being brought in from a local extended care facility at which she chronically resides with complaints of shortness of breath and decreased pulse ox. Patient has a history of COPD and he is only on 2 L as needed shortness of breath and the halfway was reluctant to increase his oxygen and sent him in to the emergency room for evaluation. Patient underwent a left thoracentesis and February 2019, it was felt that this fluid was secondary to a transudate of process such as CHF. Patient had a past history of lung cancer and follows up with Dr. Teran, patient states that he was given no chemotherapy and he was treated with radiation treatment only. Patient's radiation treatments were completed sometime ago Patient is being seen by pulmonary medicine (), on his visit and February 2019, it was noted that his pleural effusion was most likely due to heart failure. Patient is on chronic Lasix at the halfway. Labs obtained in the emergency room showed an elevated white blood cell count 14.5, hemoglobin was 12.7, patient's chemistry panel showed a sodium of 131, BUN was 27, creatinine was 1.31, glucose is 124, and alkaline phosphatase is 159. A urinalysis obtained from his catheter, it was positive for white cells at 10-25, positive for red cells of 5-10, and urine bacteria was +2. Chest x-ray obtained showed a left pleural effusion and chronic lung disease, no evidence of CHF was noted. CT of the abdomen and pelvis was obtained due to concerns about possible ascites, it showed multi level due to degenerative disease, bilateral pleural effusions were noted with atelectasis, a loculated left pleural effusion was noted, there is an area of low-attenuation within the pancreatic head incompletely characterized-it was recommended that an ultrasound be performed to follow-up on this area. There was a hyperdense structure within the right kidney-ultrasound was also recommended to further study this area. There was no CT evidence for diverticulitis or appendicitis. Nonspecific perinephric stranding was identified. Patient was given IV Rocephin due to concerns of cystitis, [facility] be [facility], a thoracentesis will be attempted by radiology with ultrasound guidance-I did not order a diagnostic thoracentesis- only a therapeutic thoracentesis. Patient will be maintained on Rocephin-he stated he ran a temperature at the halfway yesterday above 100. Past Medical History Past Medical History (Chronic Problems): Chronic Problems (Last Reviewed 03/26/19 @ 13:50 by Korina Carr) COPD (Chronic) prostate cancer (Chronic) status post radiation Alcoholism (Chronic) Urinary retention (Chronic) Non-small cell lung cancer (NSCLC) (Chronic) Pleural effusion on left (Chronic) Atelectasis of left lung (Chronic) Medical History: Medical History (Last Reviewed 03/26/19 @ 13:50 by Korina Carr) Abnormal prostate biopsy R89.7 05/04/2006 CKD (chronic kidney disease) N18.9 COPD (chronic obstructive pulmonary disease) J44.9 GERD (gastroesophageal reflux disease) K21.9 H/O tooth extraction K08.409 x9 teeth 07/2018 H/O urinary retention Z87.898 History of E. 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 Allergies doxycycline Allergy (Verified 04/19/19 02:46) Unknown tetracycline Allergy (Verified 04/19/19 02:46) Rash venom-honey bee [bee venom (honey bee)] Allergy (Verified 04/19/19 02:46) Unknown Home Medications: Ambulatory Orders Medication Instructions Recorded Ipratropium/Albuterol Sulfate 3 ml INHALATION Q4H.RT 07/05/18 [Duoneb] Multivitamin [Daily Multiple 1 ea PO DAILY 07/05/18 Vitamin] Vits A,C,E/Lutein/Minerals [Vision 1 cap PO DAILY 07/18/18 Formula with Lutein Tab] Fish Oil 1 cap PO DAILY 09/27/18 Acetaminophen [Tylenol] 325 mg PO Q4H PRN 10/10/18 Albuterol Inhaler [Ventolin Hfa] 2 inh IH 4X/DAY 10/10/18 Benzocaine/Menthol [Sore Throat 1 ea MM PRN PRN 10/10/18 Lozenges] Bisacodyl [Dulcolax] 10 mg RECTAL DAILY PRN PRN 10/10/18 Chlorhexidine Gluconate [Peridex] 15 ml MM 4X/DAY PRN 10/10/18 Citric AC/Gluconolact/Mag Carb 30 ml IR PRN PRN 10/10/18 [Renacidin Irrigation Solution] Guaifenesin [Mucinex] 600 mg PO PRN PRN 10/10/18 Ibuprofen [Ibu] 1 tab PO TID 10/10/18 Lactobacillus Acidophilus 1 ea PO DAILY 10/10/18 [Acidophilus] Loperamide [Imodium] 2 mg PO PRN PRN 10/10/18 Magnesium Hydroxide [Milk Of 30 ml PO DAILY PRN PRN 10/10/18 Magnesia] Na Phos,M-B/Na Phos,Di-Ba [Fleet 1 bottle RECTAL PRN PRN 10/10/18 Enema] Ondansetron HCl [Zofran] 4 mg PO PRN PRN 10/10/18 Phenazopyridine [Pyridium] 100 mg PO TID 10/10/18 Polyvinyl Alcohol [Artificial 15 ml OP DAILY 10/10/18 Tears] Pot Bicarb/Sod Bicarb/Cit AC 1 tab PO DAILY PRN 10/10/18 [Joan[place] Gold Tab Eff] Psyllium Husk (with Sugar) 368 gm PO DAILY 10/10/18 [Renata-Mucil Powder] Clear Eyes Max Redness Rlf Drp 2 drp EACH EYE Q4H 11/27/18 Polyethylene Glycol 3350 [Miralax] 17 gm PO DAILY 11/27/18 albuterol sulfate 2.5 mg/3 mL 2.5 mg INHALATION Q4H PRN 12/11/18 (0.083 %) solution for nebulization calcium carbonate 750 2 tab PO .Q6 PRN tab 12/11/18 mg-simethicone 80 mg chewable tablet ipratropium bromide 0.03 % nasal 2 spray INTRANASAL BID-TID PRN 12/11/18 spray sertraline 25 mg tablet 25 mg PO DAILY 12/11/18 atorvastatin 10 mg tablet 10 mg PO QHS tab 01/22/19 fluticasone propionate 50 1 inh INHALATION BID 02/27/19 mcg/actuation blister powder for inhalation furosemide 40 mg tablet 40 mg PO DAILY 02/27/19 lisinopril 5 mg tablet 5 mg PO DAILY 02/27/19 metoprolol tartrate 25 mg tablet 12.5 mg PO BID tab 02/27/19 ranitidine 75 mg tablet 75 mg PO BID 02/27/19 Surgical History: noncontributory Psychiatric History: No pertinent psych hx Lives: Detention Smoking Status: Former smoker Tobacco Use: Non-smoker Alcohol: None Drugs: None - *Family History Paternal Family History: Family History (Last Reviewed 03/26/19 @ 13:50 by Korina Carr) Father Brain cancer Mother Cervical cancer History Items: - - brain tumor Maternal Family History: Family History (Last Reviewed 03/26/19 @ 13:50 by Korina Carr) Father Brain cancer Mother Cervical cancer History Items: Cancer - cervical, Hypertension Review of Systems Constitutional: Reports: Fever. Denies: Anorexia, Chills, Night Sweats, Malaise, Weakness, Weight Change, Fatigue Eyes: Denies: Cataracts, Conjunctivae Inflammation, Double vision, Drainage HEENT: Denies: Difficulty Swallowing, Dysphasia, Ear Pain, Eye Pain, Hearing Changes, Nasal bleeding, Nasal Congestion, Post Nasal Drip Cardiovascular: Denies: Chest Pain, Claudication, Chest Pressure, Chest Tightness, Edema, Heaviness, Palpitations Respiratory: Reports: Shortness of Breath, Shortness of breath at rest. Denies: Cough, Hemoptysis, Pleuritic Pain, Shortness of breath upon exertion Gastrointestinal: Denies: Abdominal Pain, Constipation, Diarrhea, Hematemesis, Hematochezia, Nausea, Melena, Vomiting Genitourinary: Reports: - - Patient has a chronic Avila catheter. Denies: Dysuria, Frequency, Hematuria, Hesitancy, Urgency Musculoskeletal: Denies: Joint Pain, Joint stiffness, Joint swelling Skin: Denies: Dryness, Pruritis, Rash Neurological: Denies: Blurred vision, Double vision, Slurred speech, Difficulty swallowing, Focal weakness, Numbness, Tingling Psychiatric: Denies: Anxiety, Depression, Homicidal Ideations, Suicidal Ideations Endocrine: Denies: Change in Body Habitus, Heat/ Cold Intolerance, Polydipsia, Polyuria Hematologic/ Lymphatic: Denies: Adenopathy, Anemia, Easy Bruising, Easy Bleeding, Petechiae, Purpura VTE Information - Inpt Only VTE Present on Admission: No VTE Mechan Device Prophylaxis: None VTE Pharm Prophylaxis ordered?: No Patient Problems: Active and Suspected Problems (Last Reviewed 03/26/19 @ 13:50 by Korina Carr) Shortness of breath (Acute) Decreased pulse ox (Acute) - Physical Exam General: Alert, Oriented x3, Cooperative, No apparent distress, Well developed HEENT: Atraumatic, PERRLA, EOMI, Normocephalic Neck: Supple, No JVD, Negative Carotid Bruits, Trachea Midline, Thyroid Normal Size and Texture Lungs: No rales, Diminished - Diminished breath sounds are noted over the patient's left midlung and lower lung, Wheezes - Diffuse expiratory wheezes are noted bilaterally Cardiovascular: Regular rate, Regular Rhythm, Normal S1, Normal S2, No murmurs, No Ectopic Activity, PMI Normal, No rub noted, No Gallop Abdomen: Bowel Sounds Present, Soft, Non Tender, Non-Distended, No hernias noted, - - Patient has a Avila catheter Extremities: No clubbing, Capillary Refill Less than 3 Seconds Skin: No rashes, No breakdown Musculoskeletal: No Tenderness to Palpation of Joints or Extremities Neurological: Cranial nerves II-XII grossly intact, Neuro grossly intact, Sensory exam intact to light touch and pain Psych/Mental Status: Normal Affect, Appropriate, Alert and oriented to time, place, person, mood and affect Vital Signs Temp Pulse Resp BP Pulse Ox 97.9 F 87 21 H 104/58 L 91 04/19/19 03:29 04/19/19 05:06 04/19/19 05:06 04/19/19 05:06 04/19/19 05:06 Oxygen Flow Rate (L/min) 2 Oxygen Delivery Method Nasal Cannula Weight: 106.4 kg Body Mass Index (BMI) 29.3 Finger Stick Blood Glucose 192 Laboratory Tests Past 24 Hrs 04/19/19 04/19/19 04/19/19 02:45 02:45 02:55 WBC 14.5 H RBC 4.29 L Hgb 12.7 L Hct 38.1 L MCV 88.8 MCH 29.6 MCHC 33.3 RDW 13.5 RDW Differential 44.2 H Plt Count 317 MPV 8.2 Immature Gran % (Auto) 0.200 Neut % (Auto) 88.2 H Lymph % (Auto) 3.8 L Pettis % (Auto) 7.6 Eos % (Auto) 0.1 Baso % (Auto) 0.1 Absolute Neuts (auto) 12.8 H Absolute Lymphs (auto) 0.55 L Total Counted Not Reportable Differential Comment Sodium 131 L Potassium 4.6 Chloride 93 L Carbon Dioxide 29.0 Anion Gap 9 BUN 27 H Creatinine 1.31 H Estim Creat Clear Calc 52.86 Est GFR (MDRD) Af Amer 67 Est GFR (MDRD) Non-Af 56 L BUN/Creatinine Ratio 20.6 H Glucose 124 H Lactic Acid 1.9 Calcium 8.9 Total Bilirubin 0.40 AST 27 ALT 36 Alkaline Phosphatase 159 H Troponin I 0.033 Total Protein 7.7 Albumin 2.5 L Globulin 5.2 H Albumin/Globulin Ratio 0.5 L Lipase 57 L Urine Color Urine Clarity Urine pH Ur Specific [place] Urine Protein Urine Glucose (UA) Urine Ketones Urine Occult Blood Urine Nitrite Urine Bilirubin Urine Urobilinogen Ur Leukocyte Esterase Urine RBC Urine WBC Ur Squamous Epith Cells Triple Phos Crystals Amorphous Sediment Urine Bacteria Urine Mucus 04/19/19 04:00 WBC RBC Hgb Hct MCV MCH MCHC RDW RDW Differential Plt Count MPV Immature Gran % (Auto) Neut % (Auto) Lymph % (Auto) Pettis % (Auto) Eos % (Auto) Baso % (Auto) Absolute Neuts (auto) Absolute Lymphs (auto) Total Counted Differential Comment Sodium Potassium Chloride Carbon Dioxide Anion Gap BUN Creatinine Estim Creat Clear Calc Est GFR (MDRD) Af Amer Est GFR (MDRD) Non-Af BUN/Creatinine Ratio Glucose Lactic Acid Calcium Total Bilirubin AST ALT Alkaline Phosphatase Troponin I Total Protein Albumin Globulin Albumin/Globulin Ratio Lipase Urine Color Yellow Urine Clarity Cloudy Urine pH 9.0 Ur Specific [place] 1.015 Urine Protein 100 H Urine Glucose (UA) Normal Urine Ketones Negative Urine Occult Blood 50 H Urine Nitrite Negative Urine Bilirubin Negative Urine Urobilinogen Normal Ur Leukocyte Esterase 500 H Urine RBC 5-10 SEEN Urine WBC 10-25 SEEN Ur Squamous Epith Cells 0-5 SEEN Triple Phos Crystals 1+ Amorphous Sediment 1+ Urine Bacteria 2+ Urine Mucus 1+ Assessment/Plan All Active Problems (Last Reviewed 03/26/19 @ 13:50 by Korina Carr) Sepsis due to Escherichia coli (Resolved) Hypoxia (Acute) Tobacco abuse (Resolved) Shortness of breath (Acute) Decreased pulse ox (Acute) #1 hypoxia on a backdrop of chronic hypoxic respiratory failure due to acute on chronic left pleural effusion-patient will be placed in observation status on MedSurg 3, he will undergo a left thoracentesis under ultrasound guidance, I have not ordered diagnostic studies on the fluid because he has had multiple thoracentesis #2 acute cystitis-patient will be maintained on Rocephin, urine culture was obtained by the ER physician #3 chronic obstructive pulmonary disease #4 chronic hypoxic respiratory failure #5 chronic congestive heart failure-type unknown #6 chronic debility-patient currently lives at [place] #7 chronic urinary retention-patient has a chronic Avila #[address] of the abdomen indicating a possible kidney mass and and pancreatic head abnormality-ultrasound of the abdomen will be ordered Code Visit OBSV E&M: 61997 Initial observation care L3
--- NOTE | 2019-04-19 07:41 | US_ITS ---
STUDY: ABDOMINAL ULTRASOUND REASON FOR EXAM: Male, [address] TECHNIQUE: Transabdominal ultrasound was performed with real-time and static gannon scale imaging. TECHNICAL QUALITY: Adequate. COMPARISON: CT dated April 19, 2019 FINDINGS: Liver: The liver measures 14.7 cm. There is normal echogenicity of the liver. The bile ducts are within normal limits. There is hepatic color flow. The direction of portal flow is hepatopetal. There is no demonstrated mass lesion. Portal vein measurement: Gallbladder: Normal distended gallbladder. The gallbladder wall measures 2.3 mm. There is a negative sonographic Moore's sign. There is no pericholecystic fluid. There are no gallstones. Common Bile Duct (C.B.D.): The common bile duct measures 3.0 mm. Pancreas: Normal size of the head, body and tail of the pancreas. There is normal echogenicity of the pancreas. There is no demonstrated pancreatic mass or cyst. Spleen: Normal size of the spleen. The spleen measures 9.4 cm. Right Kidney: Normal size of the right kidney. The right kidney measures 10.9 cm in length. Normal renal cortex. There is a 1.3 x 1.5 cm simple renal cyst. There is no right hydronephrosis. Left Kidney: Normal size of the left kidney. The left kidney measures 11.1 cm in length. Normal renal cortex. There are nonobstructing left renal calculi, a appliance service representative calculus measures 4 mm. There is no demonstrated renal mass or cyst. There is no left hydronephrosis. Aorta: The visualized abdominal aorta is within normal limits. I.V.C.: The IVC is patent. There is no ascites. There is a small right pleural effusion. US/Abdomen Complete IMPRESSION: Right renal cyst. Nonobstructing left renal calculi. Small right pleural effusion. Electronically Signed: Eliza Quintanilla MD at 16:08 EDT Tel , Service support ,
[2019-04-19 08:48] LABS: Prothrombin Time (Protime)PT. 13.4 SECONDS (11.7-14.9)
--- NOTE | 2019-04-19 09:11 | CASEMGMT ---
Social Work Note Pt is listed as being from [place]. SW placed a call to Maggie at [facility]. 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 Plan: Return to [facility] once medically cleared Carlota Craven REMOTE BROADCAST TECHNICIAN, SENIOR FINANCIAL REPORTING ANALYST
--- NOTE | 2019-04-19 10:15 | RAD_ITS ---
STUDY: X-RAY CHEST REASON FOR EXAM: Male, 83 years old. Post thoracentesis examination. TECHNIQUE: AP inspiration and expiration views. COMPARISON: Comparison is made with prior study dated April 19, 2018 at 3:20 AM. FINDINGS: The patient is status post left thoracentesis. There is no evidence of pneumothorax. Mild residual pleural parenchymal changes are seen at the left lung base. Since prior study, there has been progressive infiltration in the medial aspect of the right upper lobe. RAD/Chest Insp/Exp 2 View IMPRESSION: Status post left thoracentesis. No evidence of pneumothorax. Mild residual pleural parenchymal changes at the left lung base. Progressive infiltration in the right upper lobe. Electronically Signed: Momo Burns, at 10:19 EDT , Service support ,
--- NOTE | 2019-04-19 10:47 | CASEMGMT ---
Social Work Note Per military personnel specialist questions, pt doesn't have HCPOA or LW and declined information. Carlota Craven BLENDING TECHNICIAN, HEAD PUMPER
[2019-04-19] MEDS: Glycerin/Hypromellose/PEG400 15 ml Bottle 1 DRP OPHTHALMIC (12:12)
[2019-04-19] MEDS: Polyethylene Glycol 3350 17 GM PACKET PO (12:14)
[2019-04-19] MEDS: Furosemide 40 MG Tablet PO (12:15)
[2019-04-19] MEDS: Famotidine 20 MG Tablet PO ×2 (12:15→21:25)
--- NOTE | 2019-04-19 13:00 | CASEMGMT ---
Social Work Note SW met with pt to confirm discharge plans. Pt is alert and orientated x3. Pt confirms that he resides at [facility] and his plan is to return there at discharge. SW asked if this worker could call any of pt's family or friends to update them on pt's admission to hospital. Pt states that he talks to no one. SW asked pt about his son Yevgeniy that is listed on pt's facesheet. Pt states that he hasn't talked to Yevgeniy in three years and denied wanting this worker to call him. SW asked about pt's friend Yissel, pt again denied this worker calling his friend as pt again stated he doesn't talk to anyone. Pt states that he has another son that lives in [place] and three daughters but again states that he doesn't talk to any of them and denied wanting this worker to call his family. Pt states when he and his ex- got a divorce his children stopped talking to him. Again pt denied this worker calling any family or friends. Plan: Pt to return to [facility] once medically cleared Carlota Craven FEDERAL JAVA DEVELOPER, WAREHOUSE HELPER
[2019-04-19] MEDS: Ipratropium/Albuterol Sulfate 3 ML AMPUL.NEB INHALATION ×3 (14:00→23:08)
--- NOTE | 2019-04-19 14:14 | PCM.PN.HOSP ---
Patient Problems: Active and Suspected Problems (Last Reviewed 03/26/19 @ 13:50 by Korina Carr) Shortness of breath (Acute) Decreased pulse ox (Acute) Subjective: Has increased shortness of breath while at shortness of breath over the past months. Increased abdominal bloating x 1 day. Has had BMs daily. Vitals/I&O's: Vital Signs Temp Pulse Resp BP Pulse Ox 37.0 C 93 16 105/53 L 95 04/19/19 08:43 04/19/19 10:37 04/19/19 10:37 04/19/19 10:37 04/19/19 08:43 Oxygen Flow Rate (L/min) [4] 4 Oxygen Flow Rate (L/min) [3] 4 Oxygen Flow Rate (L/min) [2] 4 Oxygen Flow Rate (L/min) [1 ( 4 Initial Baseline)] Oxygen Flow Rate (L/min) 4 Oxygen Delivery Method [4] Nasal Cannula Oxygen Delivery Method [3] Nasal Cannula Oxygen Delivery Method [2] Nasal Cannula Oxygen Delivery Method [1 ( Nasal Cannula Initial Baseline)] Oxygen Delivery Method Nasal Cannula Weight: 106.4 kg Body Mass Index (BMI) 29.3 Finger Stick Blood Glucose 192 Intake and Output for Last 24 Hours 04/17/19 04/18/19 04/19/19 23:59 23:59 23:59 Intake Total 0 / 0 Output Total 650 / 650 Balance -650 / -650 General: Alert, No apparent distress, - - no conversational dyspnea. no respiratory distress. HEENT: Atraumatic, Normocephalic Oral: Moist Mucosa, No Gingival or Mucosal Lesions/ Ulcerations Neck: No Nodes, Thyroid Normal Size and Texture Lungs: No rhonchi, No wheeze, - - diminished on right. Cardiovascular: Regular rate, Regular Rhythm, Normal S1, Normal S2, No murmurs Abdomen: Bowel Sounds Present, Soft, Non Tender, Non-Distended, Hernia Extremities: No edema, No Calf Tenderness Skin: No rashes, No breakdown Psych/Mental Status: Normal Affect, Appropriate Laboratory Results 04/19/19 02:45: WBC 14.5 H, RBC 4.29 L, Hgb 12.7 L, Hct 38.1 L, MCV 88.8, MCH 29.6, MCHC 33.3, RDW 13.5, RDW Differential 44.2 H, Plt Count 317, MPV 8.2, Immature Gran % (Auto) 0.200, Neut % (Auto) 88.2 H, Lymph % (Auto) 3.8 L, Young % (Auto) 7.6, Eos % (Auto) 0.1, Baso % (Auto) 0.1, Absolute Neuts (auto) 12.8 H, Absolute Lymphs (auto) 0.55 L, Total Counted Not Reportable, Differential Comment 04/19/19 02:45: Sodium 131 L, Potassium 4.6, Chloride 93 L, Carbon Dioxide 29.0, Anion Gap 9, BUN 27 H, Creatinine 1.31 H, Estim Creat Clear Calc 52.86, Est GFR (MDRD) Af Amer 67, Est GFR (MDRD) Non-Af 56 L, BUN/Creatinine Ratio 20.6 H, Glucose 124 H, Calcium 8.9, Total Bilirubin 0.40, AST 27, ALT 36, Alkaline Phosphatase 159 H, Troponin I 0.033, Total Protein 7.7, Albumin 2.5 L, Globulin 5.2 H, Albumin/Globulin Ratio 0.5 L, Lipase 57 L 04/19/19 02:45: PT 13.4, INR 1.0 04/19/19 02:55: Lactic Acid 1.9 04/19/19 04:00: Urine Color Yellow, Urine Clarity Cloudy, Urine pH 9.0, Ur Specific [place] 1.015, Urine Protein 100 H, Urine Glucose (UA) Normal, Urine Ketones Negative, Urine Occult Blood 50 H, Urine Nitrite Negative, Urine Bilirubin Negative, Urine Urobilinogen Normal, Ur Leukocyte Esterase 500 H, Urine RBC 5-10 SEEN, Urine WBC 10-25 SEEN, Ur Squamous Epith Cells 0-5 SEEN, Triple Phos Crystals 1+, Amorphous Sediment 1+, Urine Bacteria 2+, Urine Mucus 1+ Current Medications Acetaminophen (Tylenol) 650 mg PO Q6H PRN PRN PRN Reason: Mild Pain (1-3)/Temp > 100.7 F Albuterol Sulfate (Ventolin Aerosols) 2.5 mg INHALATION Q4H PRN PRN PRN Reason: WHEEZING Albuterol/Ipratropium (Duoneb) 3 ml INHALATION Q4H.RT ROSALINA Last Admin: 04/19/19 14:00 Dose: 3 ml Atorvastatin Calcium (Lipitor) 10 mg PO QHS [facility] Famotidine (Pepcid) 20 mg PO BID [facility] Last Admin: 04/19/19 12:15 Dose: 20 mg Furosemide (Lasix) 40 mg PO DAILY [facility] Last Admin: 04/19/19 12:15 Dose: 40 mg Ceftriaxone Sodium (Rocephin) 1 gm in 50 mls @ 100 mls/hr IV Q24@2200 [facility] Ibuprofen (Motrin) 400 mg PO Q4H PRN PRN PRN Reason: Mild Pain (1-3)/Temp > 100.7 F Lisinopril (Zestril) 5 mg PO DAILY [facility] Last Admin: 04/19/19 12:18 Dose: Not Given Metoprolol Tartrate (Lopressor (Beta Elvira)) 12.5 mg PO BID [facility] Last Admin: 04/19/19 12:22 Dose: Not Given Polyethylene Glycol (Miralax) 17 gm PO DAILY [facility] Last Admin: 04/19/19 12:14 Dose: 17 gm Sertraline HCl (Zoloft) 25 mg PO DAILY [facility] Last Admin: 04/19/19 12:18 Dose: Not Given Sodium Chloride () 5 - 15 ml IV UD PRN PRN Reason: SALINE FLUSH Medical Necessity - Tobacco Use Smoking Status: Former smoker Tobacco Use: Non-smoker Assessment/Plan All Active Problems (Last Reviewed 03/26/19 @ 13:50 by Korina Carr) Sepsis due to Escherichia coli (Resolved) Hypoxia (Acute) Tobacco abuse (Resolved) Shortness of breath (Acute) Decreased pulse ox (Acute) 1. Pleural effusion chronic present back in 2018 has had thoracenteses on 07/27/18, 01/05/19, 03/07/19 and today only 250cc removed today findings consistent with exudative effusion cytology has been negative for malignancy likely to recur will consult pulm for further recommendations 2. Stage IB NSCLC received XRT 08/17-09/13/18, not candidate for chemo in past follow up with medical oncology as outpt 3. Pyuria not sure this is an actual UTI continue CTX for now 4. Chronic respiratory failure increased oxygen requirements due to pleural effusion likely will require more oxygen at discharge 5. VTE prophylaxis: observation status. not indicated at this time. Code Visit Procedures: Other Procedure - See Report - non-billable rounding.
--- NOTE | 2019-04-19 14:29 | PN_ITS ---
Patient Problems: Active and Suspected Problems (Last Reviewed 03/26/19 @ 13:50 by Korina Carr) Shortness of breath (Acute) Decreased pulse ox (Acute) Subjective: Has increased shortness of breath while at shortness of breath over the past months. Increased abdominal bloating x 1 day. Has had BMs daily. Vitals/I&O's: Vital Signs Temp Pulse Resp BP Pulse Ox 37.0 C 93 16 105/53 L 95 04/19/19 08:43 04/19/19 10:37 04/19/19 10:37 04/19/19 10:37 04/19/19 08:43 Oxygen Flow Rate (L/min) [4] 4 Oxygen Flow Rate (L/min) [3] 4 Oxygen Flow Rate (L/min) [2] 4 Oxygen Flow Rate (L/min) [1 ( 4 Initial Baseline)] Oxygen Flow Rate (L/min) 4 Oxygen Delivery Method [4] Nasal Cannula Oxygen Delivery Method [3] Nasal Cannula Oxygen Delivery Method [2] Nasal Cannula Oxygen Delivery Method [1 ( Nasal Cannula Initial Baseline)] Oxygen Delivery Method Nasal Cannula Weight: 106.4 kg Body Mass Index (BMI) 29.3 Finger Stick Blood Glucose 192 Intake and Output for Last 24 Hours 04/17/19 04/18/19 04/19/19 23:59 23:59 23:59 Intake Total 0 / 0 Output Total 650 / 650 Balance -650 / -650 General: Alert, No apparent distress, - - no conversational dyspnea. no respiratory distress. HEENT: Atraumatic, Normocephalic Oral: Moist Mucosa, No Gingival or Mucosal Lesions/ Ulcerations Neck: No Nodes, Thyroid Normal Size and Texture Lungs: No rhonchi, No wheeze, - - diminished on right. Cardiovascular: Regular rate, Regular Rhythm, Normal S1, Normal S2, No murmurs Abdomen: Bowel Sounds Present, Soft, Non Tender, Non-Distended, Hernia Extremities: No edema, No Calf Tenderness Skin: No rashes, No breakdown Psych/Mental Status: Normal Affect, Appropriate Laboratory Results 04/19/19 02:45: WBC 14.5 H, RBC 4.29 L, Hgb 12.7 L, Hct 38.1 L, MCV 88.8, MCH 29.6, MCHC 33.3, RDW 13.5, RDW Differential 44.2 H, Plt Count 317, MPV 8.2, Immature Gran % (Auto) 0.200, Neut % (Auto) 88.2 H, Lymph % (Auto) 3.8 L, [place] % (Auto) 7.6, Eos % (Auto) 0.1, Baso % (Auto) 0.1, Absolute Neuts (auto) 12.8 H, Absolute Lymphs (auto) 0.55 L, Total Counted Not Reportable, Differential Comment 04/19/19 02:45: Sodium 131 L, Potassium 4.6, Chloride 93 L, Carbon Dioxide 29.0, Anion Gap 9, BUN 27 H, Creatinine 1.31 H, Estim Creat Clear Calc 52.86, Est GFR (MDRD) Af Amer 67, Est GFR (MDRD) Non-Af 56 L, BUN/Creatinine Ratio 20.6 H, Glucose 124 H, Calcium 8.9, Total Bilirubin 0.40, AST 27, ALT 36, Alkaline Phosphatase 159 H, Troponin I 0.033, Total Protein 7.7, Albumin 2.5 L, Globulin 5.2 H, Albumin/Globulin Ratio 0.5 L, Lipase 57 L 04/19/19 02:45: PT 13.4, INR 1.0 04/19/19 02:55: Lactic Acid 1.9 04/19/19 04:00: Urine Color Yellow, Urine Clarity Cloudy, Urine pH 9.0, Ur Specific [place] 1.015, Urine Protein 100 H, Urine Glucose (UA) Normal, Urine Ketones Negative, Urine Occult Blood 50 H, Urine Nitrite Negative, Urine Bilirubin Negative, Urine Urobilinogen Normal, Ur Leukocyte Esterase 500 H, Urine RBC 5-10 SEEN, Urine WBC 10-25 SEEN, Ur Squamous Epith Cells 0-5 SEEN, Triple Phos Crystals 1+, Amorphous Sediment 1+, Urine Bacteria 2+, Urine Mucus 1+ Current Medications Acetaminophen (Tylenol) 650 mg PO Q6H PRN PRN PRN Reason: Mild Pain (1-3)/Temp > 100.7 F Albuterol Sulfate (Ventolin Aerosols) 2.5 mg INHALATION Q4H PRN PRN PRN Reason: WHEEZING Albuterol/Ipratropium (Duoneb) 3 ml INHALATION Q4H.RT ROSALINA Last Admin: 04/19/19 14:00 Dose: 3 ml Atorvastatin Calcium (Lipitor) 10 mg PO QHS [facility] Famotidine (Pepcid) 20 mg PO BID [facility] Last Admin: 04/19/19 12:15 Dose: 20 mg Furosemide (Lasix) 40 mg PO DAILY [facility] Last Admin: 04/19/19 12:15 Dose: 40 mg Ceftriaxone Sodium (Rocephin) 1 gm in 50 mls @ 100 mls/hr IV Q24@2200 [facility] Ibuprofen (Motrin) 400 mg PO Q4H PRN PRN PRN Reason: Mild Pain (1-3)/Temp > 100.7 F Lisinopril (Zestril) 5 mg PO DAILY [facility] Last Admin: 04/19/19 12:18 Dose: Not Given Metoprolol Tartrate (Lopressor (Beta Elvira)) 12.5 mg PO BID [facility] Last Admin: 04/19/19 12:22 Dose: Not Given Polyethylene Glycol (Miralax) 17 gm PO DAILY [facility] Last Admin: 04/19/19 12:14 Dose: 17 gm Sertraline HCl (Zoloft) 25 mg PO DAILY [facility] Last Admin: 04/19/19 12:18 Dose: Not Given Sodium Chloride () 5 - 15 ml IV UD PRN PRN Reason: SALINE FLUSH Medical Necessity - Tobacco Use Smoking Status: Former smoker Tobacco Use: Non-smoker Assessment/Plan All Active Problems (Last Reviewed 03/26/19 @ 13:50 by Korina Carr) Sepsis due to Escherichia coli (Resolved) Hypoxia (Acute) Tobacco abuse (Resolved) Shortness of breath (Acute) Decreased pulse ox (Acute) 1. Pleural effusion * chronic * present back in 2018 * has had thoracenteses on 07/27/18, 01/05/19, 03/07/19 and today * only 250cc removed today * findings consistent with exudative effusion * cytology has been negative for malignancy * likely to recur * will consult pulm for further recommendations 2. Stage IB NSCLC * received XRT 08/17-09/13/18, not candidate for chemo in past * follow up with medical oncology as outpt 3. Pyuria * not sure this is an actual UTI * continue CTX for now 4. Chronic respiratory failure * increased oxygen requirements * due to pleural effusion * likely will require more oxygen at discharge 5. VTE prophylaxis: observation status. not indicated at this time. Code Visit Procedures: Other Procedure - See Report - non-billable rounding.
--- NOTE | 2019-04-19 15:07 | CON.PCM_ITS ---
Problem List (1) COPD Status: Chronic (2) Alcoholism Status: Chronic (3) Hypoxia Status: Acute (4) Tobacco abuse Status: Resolved (5) Non-small cell lung cancer (NSCLC) Status: Chronic Qualifiers: Laterality: right Qualified Code(s): C34.91 - Malignant neoplasm of unspecified part of right bronchus or lung (6) Pleural effusion on left Status: Chronic (7) Atelectasis of left lung Status: Chronic Reason for Consult Date of Consultation: 04/19/19 Reason for Consultation: Recurrent effusion History of Present Illness: The patient is a 83 year old M, with past medical history listed below, who presented to [facility] on 04/19/2019 secondary to shortness of breath and desaturation. [facility] and was noted to have a saturation of 85% on his baseline 2 L. Patient does have a history of non-small cell lung cancer status post radiation and pleural effusions in the past that required drainage. Patient had reported that he felt bloated and that his lungs and abdomen were filling with fluid. While in the ER, patient was noted to be 90% on 5 L nasal cannula. Patient was tachycardic and tachypneic. Chest x-ray did show increased left pleural effusion, leukocytosis of 14.5 and creatinine of 1.3. Patient did have a CT scan of the abdomen showing a possible hypodensity in the head of the pancreas. Patient was admitted to the floor for further evaluation. Shortly after hospitalization, patient did have a thoracentesis with drainage of 250 mL's of dark lucía-colored fluid. This was not sent for analysis. A pulmonary consult was obtained for recommendations moving forward. Patient reports that he feels subjectively the same following the thoracentesis. Patient remains on 4 L nasal cannula to maintain saturations. Patient states his current biggest complaint is a sense of constipation and abdominal bloating. Patient has been increased shortness of breath over the last several months, but has attributed this to his malignancy. Patient is seen by Dr. Teran as an outpatient. Patient was deemed unable to receive chemotherapy and did receive radiation therapy to his chest. Patient was reportedly told that a dry cough would be anticipated secondary to his radiation. Review of systems otherwise negative x10 systems. Review of the medical record shows patient had a CT scan of the chest on 03/21/2019 that showed improvement of left loculated pleural effusion with increased opacity of the right upper lung. Patient has had a PET scan in the past that did not show hypermetabolic activity on the left. Review of the record shows patient did have an exudative left pleural effusion noted on 03/07/2019 with a monocyte predominant differential and negative cytology for malignancy. Past Medical History Past Medical History (Chronic Problems): Chronic Problems (Last Reviewed 03/26/19 @ 13:50 by Korina Carr) COPD (Chronic) prostate cancer (Chronic) status post radiation Alcoholism (Chronic) Urinary retention (Chronic) Non-small cell lung cancer (NSCLC) (Chronic) Pleural effusion on left (Chronic) Atelectasis of left lung (Chronic) Medical History: Medical History (Last Reviewed 03/26/19 @ 13:50 by Korina Carr) Abnormal prostate biopsy R89.7 05/04/2006 CKD (chronic kidney disease) N18.9 COPD (chronic obstructive pulmonary disease) J44.9 GERD (gastroesophageal reflux disease) K21.9 H/O tooth extraction K08.409 x9 teeth 07/2018 H/O urinary retention Z87.898 History of E. 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 Allergies doxycycline Allergy (Verified 04/19/19 06:52) pt is unsure tetracycline Allergy (Verified 04/19/19 02:46) Rash venom-honey bee [bee venom (honey bee)] Allergy (Verified 04/19/19 06:52) Swelling Home Medications: Ambulatory Orders Medication Instructions Recorded Ipratropium/Albuterol Sulfate 3 ml INHALATION Q4H.RT 07/05/18 [Duoneb] Multivitamin [Daily Multiple 1 ea PO DAILY 07/05/18 Vitamin] Vits A,C,E/Lutein/Minerals [Vision 1 cap PO DAILY 07/18/18 Formula with Lutein Tab] Fish Oil 1 cap PO DAILY 09/27/18 Acetaminophen [Tylenol] 325 mg PO Q4H PRN 10/10/18 Albuterol Inhaler [Ventolin Hfa] 2 inh IH 4X/DAY 10/10/18 Benzocaine/Menthol [Sore Throat 1 ea MM PRN PRN 10/10/18 Lozenges] Bisacodyl [Dulcolax] 10 mg RECTAL DAILY PRN PRN 10/10/18 Chlorhexidine Gluconate [Peridex] 15 ml MM 4X/DAY PRN 10/10/18 Citric AC/Gluconolact/Mag Carb 30 ml IR PRN PRN 10/10/18 [Renacidin Irrigation Solution] Guaifenesin [Mucinex] 600 mg PO PRN PRN 10/10/18 Ibuprofen [Ibu] 1 tab PO TID 10/10/18 Lactobacillus Acidophilus 1 ea PO DAILY 10/10/18 [Acidophilus] Loperamide [Imodium] 2 mg PO PRN PRN 10/10/18 Magnesium Hydroxide [Milk Of 30 ml PO DAILY PRN PRN 10/10/18 Magnesia] Na Phos,M-B/Na Phos,Di-Ba [Fleet 1 bottle RECTAL PRN PRN 10/10/18 Enema] Ondansetron HCl [Zofran] 4 mg PO PRN PRN 10/10/18 Phenazopyridine [Pyridium] 100 mg PO TID 10/10/18 Polyvinyl Alcohol [Artificial 15 ml OP DAILY 10/10/18 Tears] Pot Bicarb/Sod Bicarb/Cit AC 1 tab PO DAILY PRN 10/10/18 [Joan-Bruce Gold Tab Eff] Psyllium Husk (with Sugar) 368 gm PO DAILY 10/10/18 [Renata-Mucil Powder] Clear Eyes Max Redness Rlf Drp 2 drp EACH EYE Q4H 11/27/18 Polyethylene Glycol 3350 [Miralax] 17 gm PO DAILY 11/27/18 albuterol sulfate 2.5 mg/3 mL 2.5 mg INHALATION Q4H PRN 12/11/18 (0.083 %) solution for nebulization calcium carbonate 750 2 tab PO .Q6 PRN tab 12/11/18 mg-simethicone 80 mg chewable tablet ipratropium bromide 0.03 % nasal 2 spray INTRANASAL BID-TID PRN 12/11/18 spray sertraline 25 mg tablet 25 mg PO DAILY 12/11/18 atorvastatin 10 mg tablet 10 mg PO QHS tab 01/22/19 fluticasone propionate 50 1 inh INHALATION BID 02/27/19 mcg/actuation blister powder for inhalation furosemide 40 mg tablet 40 mg PO DAILY 02/27/19 lisinopril 5 mg tablet 5 mg PO DAILY 02/27/19 metoprolol tartrate 25 mg tablet 12.5 mg PO BID tab 02/27/19 ranitidine 75 mg tablet 75 mg PO BID 02/27/19 Surgical History: noncontributory Psychiatric History: No pertinent psych hx Lives: Skilled Nursing Smoking Status: Former smoker Tobacco Use: Non-smoker Alcohol: None Drugs: None - *Family History Paternal Family History: Family History (Last Reviewed 03/26/19 @ 13:50 by Korina Carr) Father Brain cancer Mother Cervical cancer History Items: - - brain tumor Maternal Family History: Family History (Last Reviewed 03/26/19 @ 13:50 by Korina Carr) Father Brain cancer Mother Cervical cancer History Items: Cancer - cervical, Hypertension Review of Systems Comment: See HPI Patient Problems: Active and Suspected Problems (Last Reviewed 03/26/19 @ 13:50 by Korina Carr) Shortness of breath (Acute) Decreased pulse ox (Acute) Objective: All imaging was personally reviewed. Chest x-ray does not look much different from the [facility] physician CT scan of the chest completed earlier this month. This showed a loculated left pleural effusion with interstitial thickening of the right upper lobe. Patient did have significant volume loss of the left chest without obvious central airway obstruction. No labs were completed following thoracentesis drainage of 250 cc earlier today. Patient does have a pulmonary function test completed in July 2018 showing a severe mixed ventilatory defect (FVC 47%, FEV1 35%, TLC 61%, DLCO 45%) - Physical Exam General: Alert, Oriented x3, Cooperative, No apparent distress, - - No conversational dyspnea. Appears older than stated age. HEENT: Atraumatic, PERRLA, EOMI, Normocephalic, - - No scleral icterus or injection noted. Oral: Moist Mucosa, No Gingival or Mucosal Lesions/ Ulcerations Neck: Supple, No JVD, No Nodes, Trachea Midline, - - No masses appreciated Lungs: No rhonchi, No wheeze, No rales, Diminished - Slight dullness to percussion at the left base, - - Symmetric expansion. Slight dullness to percussion at the left base. Cardiovascular: Regular rate, Regular Rhythm, Normal S1, Normal S2, No murmurs, No rub noted, No Gallop Abdomen: Bowel Sounds Present, Soft, Non Tender, Non-Distended Extremities: No cyanosis, No edema, Capillary Refill Less than 3 Seconds, Clubbing Skin: No rashes, No breakdown Musculoskeletal: No Tenderness to Palpation of Joints or Extremities Lymphatic: No Cervical, Supraclavicular, or Inguinal Adenopathy Neurological: Cranial nerves II-XII grossly intact, Neuro grossly intact, Motor Exam 5/5 strength throughout Psych/Mental Status: Alert and oriented to time, place, person, mood and affect Vital Signs Temp Pulse Resp BP Pulse Ox 37.0 C 93 16 105/53 L 95 04/19/19 08:43 04/19/19 10:37 04/19/19 10:37 04/19/19 10:37 04/19/19 08:43 Oxygen Flow Rate (L/min) [4] 4 Oxygen Flow Rate (L/min) [3] 4 Oxygen Flow Rate (L/min) [2] 4 Oxygen Flow Rate (L/min) [1 ( 4 Initial Baseline)] Oxygen Flow Rate (L/min) 4 Oxygen Delivery Method [4] Nasal Cannula Oxygen Delivery Method [3] Nasal Cannula Oxygen Delivery Method [2] Nasal Cannula Oxygen Delivery Method [1 ( Nasal Cannula Initial Baseline)] Oxygen Delivery Method Nasal Cannula Weight: 106.4 kg Body Mass Index (BMI) 29.3 Finger Stick Blood Glucose 192 Intake and Output for Last 24 Hours 04/17/19 04/18/19 04/19/19 23:59 23:59 23:59 Intake Total 0 / 0 Output Total 650 / 650 Balance -650 / -650 Laboratory Tests Past 24 Hrs 04/19/19 04/19/19 04/19/19 02:45 02:45 02:45 WBC 14.5 H RBC 4.29 L Hgb 12.7 L Hct 38.1 L MCV 88.8 MCH 29.6 MCHC 33.3 RDW 13.5 RDW Differential 44.2 H Plt Count 317 MPV 8.2 Immature Gran % (Auto) 0.200 Neut % (Auto) 88.2 H Lymph % (Auto) 3.8 L [place] % (Auto) 7.6 Eos % (Auto) 0.1 Baso % (Auto) 0.1 Absolute Neuts (auto) 12.8 H Absolute Lymphs (auto) 0.55 L Total Counted Not Reportable Differential Comment PT 13.4 INR 1.0 Sodium 131 L Potassium 4.6 Chloride 93 L Carbon Dioxide 29.0 Anion Gap 9 BUN 27 H Creatinine 1.31 H Estim Creat Clear Calc 52.86 Est GFR (MDRD) Af Amer 67 Est GFR (MDRD) Non-Af 56 L BUN/Creatinine Ratio 20.6 H Glucose 124 H Lactic Acid Calcium 8.9 Total Bilirubin 0.40 AST 27 ALT 36 Alkaline Phosphatase 159 H Troponin I 0.033 Total Protein 7.7 Albumin 2.5 L Globulin 5.2 H Albumin/Globulin Ratio 0.5 L Lipase 57 L Urine Color Urine Clarity Urine pH Ur Specific [place] Urine Protein Urine Glucose (UA) Urine Ketones Urine Occult Blood Urine Nitrite Urine Bilirubin Urine Urobilinogen Ur Leukocyte Esterase Urine RBC Urine WBC Ur Squamous Epith Cells Triple Phos Crystals Amorphous Sediment Urine Bacteria Urine Mucus 04/19/19 04/19/19 02:55 04:00 WBC RBC Hgb Hct MCV MCH MCHC RDW RDW Differential Plt Count MPV Immature Gran % (Auto) Neut % (Auto) Lymph % (Auto) Clarke % (Auto) Eos % (Auto) Baso % (Auto) Absolute Neuts (auto) Absolute Lymphs (auto) Total Counted Differential Comment PT INR Sodium Potassium Chloride Carbon Dioxide Anion Gap BUN Creatinine Estim Creat Clear Calc Est GFR (MDRD) Af Amer Est GFR (MDRD) Non-Af BUN/Creatinine Ratio Glucose Lactic Acid 1.9 Calcium Total Bilirubin AST ALT Alkaline Phosphatase Troponin I Total Protein Albumin Globulin Albumin/Globulin Ratio Lipase Urine Color Yellow Urine Clarity Cloudy Urine pH 9.0 Ur Specific [place] 1.015 Urine Protein 100 H Urine Glucose (UA) Normal Urine Ketones Negative Urine Occult Blood 50 H Urine Nitrite Negative Urine Bilirubin Negative Urine Urobilinogen Normal Ur Leukocyte Esterase 500 H Urine RBC 5-10 SEEN Urine WBC 10-25 SEEN Ur Squamous Epith Cells 0-5 SEEN Triple Phos Crystals 1+ Amorphous Sediment 1+ Urine Bacteria 2+ Urine Mucus 1+ Clinical Impression(s) from Imaging Studies Abdomen/Pelvis CT 04/19/19 03:14 IMPRESSION: Multilevel degenerative changes with areas of severe narrowing as discussed above. MRI may be performed to further evaluate as clinically indicated. Bilateral nephrolithiasis. There is no significant hydronephrosis identified. There is nonspecific perinephric stranding which may be age-related however if there is concern for infectious process correlate with urinalysis. Small pericardial effusion. Bilateral pleural effusions with adjacent atelectasis/infiltrate. Effusion on the left appears loculated. Area of low attenuation within the pancreatic head incompletely characterize on this noncontrast enhanced study. Recommend correlation with prior studies for stability versus ultrasound to further evaluate. This may represent focally dilated duct, pseudocyst or cystic neoplasm. 4 There are multiple renal cysts present. There is a hyperdense structure within the right kidney which may represent a hyperdense/proteinaceous cyst however the noncontrast study is limited and correlate with ultrasound on a nonemergent basis as underlying neoplasm cannot be totally excluded. No CT evidence for diverticulitis or appendicitis. Other findings as discussed above. Electronically Signed: Anjel Roberto, at 4:50 EDT Tel , Service support , Chest X-Ray 04/19/19 03:14 IMPRESSION: Increased left pleural effusion. Similar appearance to the pulmonary opacities within the left mid and lower lung zones. Cardiomegaly. Similar appearance to the right tiny effusion. Electronically Signed: Anjel Roberto, at 3:53 EDT Tel , Service support , Thoracentesis Ultrasound 04/19/19 06:28 IMPRESSION: Ultrasound-guided left thoracentesis. Electronically Signed: Momo Burns, at 10:15 EDT , Service support , Chest X-Ray 04/19/19 10:15 IMPRESSION: Status post left thoracentesis. No evidence of pneumothorax. Mild residual pleural parenchymal changes at the left lung base. Progressive infiltration in the right upper lobe. Electronically Signed: Momo Burns, at 10:19 EDT , Service support , Assessment/Plan All Active Problems (Last Reviewed 03/26/19 @ 13:50 by Korina Carr) Sepsis due to Escherichia coli (Resolved) Hypoxia (Acute) Tobacco abuse (Resolved) Shortness of breath (Acute) Decreased pulse ox (Acute) RECOMMENDATIONS: 1. Aggressive pulmonary toileting 2. Obtain sputum culture 3. Agree with empiric antibiotics. Add steroids. 4. Possible Pleurx catheter in the future 5. Outpatient PET scan 6. Consider CT scan chest with PE protocol IMPRESSIONS: 1. Recurrent left pleural effusion/acute on chronic hypoxic respiratory insufficiency Laboratory data from 03/07/2019 are consistent with an exudative effusion by protein and LDH criteria with monocyte predominance. 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 Clinical concern for metastasis, but previous PET scan did not show hypermetabolic areas. Could obtain an oncology evaluation, but patient was recently seen as an outpatient. Patient may benefit from an outpatient PET scan to see if there is hypermetabolic area noted on the left. Patient does have a history of COPD, so empiric antibiotics and steroids would be appropriate. Increase pulmonary toileting as tolerated. Wean oxygen as tolerated. Patient may require Pleurx catheter in the future. Thoracentesis removed only 250 cc, but unfortunately this was not sent for analysis, so it is unclear if there are malignant cells or infection present. Patient did present with tachycardia, history of cancer and hypoxemia while relatively sedentary. Pulmonary embolism would be a consideration, but it is unlikely that this led to pleural effusion. Doubt d-dimer would be helpful given patient's multiple comorbidities. 2. History of non-small cell right paraspinal cancer Patient recently seen by oncology and surveillance was recommended. Unclear if current situation dictates outpatient PET scan would be recommended. Patient would likely be treated with conservative therapy given his current functional status. 3. Nicotine dependence/pyuria/chronic hypoxic respiratory failure/history of alcoholism/history of prostate cancer/CKD Complicates care, management, recovery and prognosis. Chronic respiratory failure is likely multifactorial. See problem 1. Code Visit Inpatient E&M: 50765 Init Hosp L3
--- NOTE | 2019-04-19 17:19 | NURSING ---
pt called out c/o of burning from his catheter and a feeling of pressure to urinate, this RN to bedside to assess. With manipulation of tubing a large piece of sediment following by some small bits of sediment flowed from the catheter. The patient voiced the burning and pressure subsided. This RN continued to manipulate lal to promote drainage.
[2019-04-19] MEDS: 0.9% NaCl Peripheral Flush Adult/Peds IV ×2 (21:24→22:18)
[2019-04-19] MEDS: Metoprolol Tartrate 25 MG Tablet 12.5 MG PO (21:25)
[2019-04-19] MEDS: Atorvastatin Calcium 10 MG Tablet PO (21:25)
[2019-04-20 02:15] VITALS: BP 91/64; PULSE 72; RESP 20; TEMP 37.2; O2SAT 95
[2019-04-20 02:51] VITALS: PULSE 77; RESP 18; O2SAT 94
[2019-04-20] MEDS: Ipratropium/Albuterol Sulfate 3 ML AMPUL.NEB INHALATION ×3 (02:51→12:02)
[2019-04-20 03:36] VITALS: BP 102/50; PULSE 72; RESP 18; TEMP 37.2; O2SAT 96
[2019-04-20 07:50] VITALS: PULSE 79; RESP 20; O2SAT 96
--- NOTE | 2019-04-20 08:45 | PCM.PN.PUL ---
Patient Problems: Active and Suspected Problems (Last Reviewed 03/26/19 @ 13:50 by Korina Carr) Shortness of breath (Acute) Decreased pulse ox (Acute) Subjective: Patient did okay overnight. Patient is complaining about constipation and some mild shortness of breath. Patient is not having any current chest pain or discomfort at the site. Patient does have occasional cough, but is not reporting significant production. - Physical Exam General: Alert, Oriented x3, Cooperative, No apparent distress, - - No conversational dyspnea appreciated. HEENT: Atraumatic, PERRLA, EOMI, Normocephalic, - - Slight scleral injection without icterus Oral: Moist Mucosa, No Gingival or Mucosal Lesions/ Ulcerations Neck: Supple, No JVD, No Nodes, Trachea Midline Lungs: No rhonchi, No wheeze, Diminished, Rales - Left base, - - Symmetric expansion. Slight dullness at the left base. Cardiovascular: Regular rate, Regular Rhythm, Normal S1, Normal S2, No murmurs, No rub noted, No Gallop Abdomen: Bowel Sounds Present, Soft, Non Tender, Non-Distended, Obese Extremities: No cyanosis, Capillary Refill Less than 3 Seconds, Clubbing Skin: - - No significant change compared to previous Musculoskeletal: No Tenderness to Palpation of Joints or Extremities, No Muscle Wasting Lymphatic: No Cervical, Supraclavicular, or Inguinal Adenopathy Neurological: Cranial nerves II-XII grossly intact, Neuro grossly intact, Motor Exam 5/5 strength throughout Psych/Mental Status: Normal Affect, Appropriate Vital Signs Temp Pulse Resp BP Pulse Ox 37.2 C 72 18 102/50 L 96 04/20/19 03:36 04/20/19 03:36 04/20/19 03:36 04/20/19 03:36 04/20/19 03:36 Oxygen Flow Rate (L/min) [4] 4 Oxygen Flow Rate (L/min) [3] 4 Oxygen Flow Rate (L/min) [2] 4 Oxygen Flow Rate (L/min) [1 ( 4 Initial Baseline)] Oxygen Flow Rate (L/min) 4 Oxygen Delivery Method [4] Nasal Cannula Oxygen Delivery Method [3] Nasal Cannula Oxygen Delivery Method [2] Nasal Cannula Oxygen Delivery Method [1 ( Nasal Cannula Initial Baseline)] Oxygen Delivery Method Nasal Cannula Weight: 106.4 kg Body Mass Index (BMI) 29.3 Finger Stick Blood Glucose 192 Intake and Output for Last 24 Hours 04/18/19 04/19/19 04/20/19 23:59 23:59 23:59 Intake Total 440 / 440 558 / 558 Output Total 1300 / 1300 575 / 575 Balance -860 / -860 - Laboratory Tests Past 24 Hrs 04/19/19 02:45 PT 13.4 INR 1.0 Clinical Impression(s) from Imaging Studies Thoracentesis Ultrasound 04/19/19 06:28 IMPRESSION: Ultrasound-guided left thoracentesis. Electronically Signed: Momo Burns, at 10:15 EDT , Service support , Abdomen Ultrasound 04/19/19 07:41 IMPRESSION: Right renal cyst. Nonobstructing left renal calculi. Small right pleural effusion. Electronically Signed: Eliza Quintanilla MD at 16:08 EDT Tel , Service support , Chest X-Ray 04/19/19 10:15 IMPRESSION: Status post left thoracentesis. No evidence of pneumothorax. Mild residual pleural parenchymal changes at the left lung base. Progressive infiltration in the right upper lobe. Electronically Signed: Momo Burns, at 10:19 EDT , Service support , Medical Necessity - Tobacco Use Smoking Status: Former smoker Tobacco Use: Non-smoker Assessment/Plan All Active Problems (Last Reviewed 03/26/19 @ 13:50 by Korina Carr) Sepsis due to Escherichia coli (Resolved) Hypoxia (Acute) Tobacco abuse (Resolved) Shortness of breath (Acute) Decreased pulse ox (Acute) RECOMMENDATIONS: 1. Aggressive pulmonary toileting 2. Obtain sputum culture 3. Continue empiric antibiotics and steroids 4. Possible Pleurx catheter in the future 5. Outpatient PET scan 6. Consider CT scan chest with PE protocol IMPRESSIONS: 1. Recurrent left pleural effusion/acute on chronic hypoxic respiratory insufficiency Laboratory data from 03/07/2019 are consistent with an exudative effusion by protein and LDH criteria with monocyte predominance. 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 Clinical concern for metastasis, but previous PET scan did not show hypermetabolic areas. Patient appears to be relatively stable on current nasal cannula oxygen. Patient does not have significant effusion to require Pleurx catheter placement at this time. Patient should have a walking oximetry prior to discharge. Long-term prognosis is extremely guarded given high clinical suspicion for malignancy with poor treatment options. 2. History of non-small cell right paraspinal cancer Patient recently seen by oncology and surveillance was recommended. Unclear if current situation dictates outpatient PET scan would be recommended. Patient would likely be treated with conservative therapy given his current functional status. 3. Nicotine dependence/pyuria/chronic hypoxic respiratory failure/history of alcoholism/history of prostate cancer/CKD Complicates care, management, recovery and prognosis. Chronic respiratory failure is likely multifactorial. See problem 1. Code Visit Inpatient E&M: 69276 Subs Hosp L2
--- NOTE | 2019-04-20 08:55 | PN_ITS ---
Patient Problems: Active and Suspected Problems (Last Reviewed 03/26/19 @ 13:50 by Korina Carr) Shortness of breath (Acute) Decreased pulse ox (Acute) Subjective: Patient did okay overnight. Patient is complaining about constipation and some mild shortness of breath. Patient is not having any current chest pain or di scomfort at the site. Patient does have occasional cough, but is not reporting significant production. - Physical Exam General: Alert, Oriented x3, Cooperative, No apparent distress, - - No conversational dyspnea appreciated. HEENT: Atraumatic, PERRLA, EOMI, Normocephalic, - - Slight scleral injection without icterus Oral: Moist Mucosa, No Gingival or Mucosal Lesions/ Ulcerations Neck: Supple, No JVD, No Nodes, Trachea Midline Lungs: No rhonchi, No wheeze, Diminished, Rales - Left base, - - Symmetric expansion. Slight dullness at the left base. Cardiovascular: Regular rate, Regular Rhythm, Normal S1, Normal S2, No murmurs, No rub noted, No Gallop Abdomen: Bowel Sounds Present, Soft, Non Tender, Non-Distended, Obese Extremities: No cyanosis, Capillary Refill Less than 3 Seconds, Clubbing Skin: - - No significant change compared to previous Musculoskeletal: No Tenderness to Palpation of Joints or Extremities, No Muscle Wasting Lymphatic: No Cervical, Supraclavicular, or Inguinal Adenopathy Neurological: Cranial nerves II-XII grossly intact, Neuro grossly intact, Motor Exam 5/5 strength throughout Psych/Mental Status: Normal Affect, Appropriate Vital Signs Temp Pulse Resp BP Pulse Ox 37.2 C 72 18 102/50 L 96 04/20/19 03:36 04/20/19 03:36 04/20/19 03:36 04/20/19 03:36 04/20/19 03:36 Oxygen Flow Rate (L/min) [4] 4 Oxygen Flow Rate (L/min) [3] 4 Oxygen Flow Rate (L/min) [2] 4 Oxygen Flow Rate (L/min) [1 ( 4 Initial Baseline)] Oxygen Flow Rate (L/min) 4 Oxygen Delivery Method [4] Nasal Cannula Oxygen Delivery Method [3] Nasal Cannula Oxygen Delivery Method [2] Nasal Cannula Oxygen Delivery Method [1 ( Nasal Cannula Initial Baseline)] Oxygen Delivery Method Nasal Cannula Weight: 106.4 kg Body Mass Index (BMI) 29.3 Finger Stick Blood Glucose 192 Intake and Output for Last 24 Hours 04/18/19 04/19/19 04/20/19 23:59 23:59 23:59 Intake Total 440 / 440 558 / 558 Output Total 1300 / 1300 575 / 575 Balance -860 / -860 - Laboratory Tests Past 24 Hrs 04/19/19 02:45 PT 13.4 INR 1.0 Clinical Impression(s) from Imaging Studies Thoracentesis Ultrasound 04/19/19 06:28 IMPRESSION: Ultrasound-guided left thoracentesis. Electronically Signed: Momo Burns, at 10:15 EDT , Service support , Abdomen Ultrasound 04/19/19 07:41 IMPRESSION: Right renal cyst. Nonobstructing left renal calculi. Small right pleural effusion. Electronically Signed: Eliza Quintanilla MD at 16:08 EDT Tel , Service support , Chest X-Ray 04/19/19 10:15 IMPRESSION: Status post left thoracentesis. No evidence of pneumothorax. Mild residual pleural parenchymal changes at the left lung base. Progressive infiltration in the right upper lobe. Electronically Signed: Momo Burns, at 10:19 EDT , Service support , Medical Necessity - Tobacco Use Smoking Status: Former smoker Tobacco Use: Non-smoker Assessment/Plan All Active Problems (Last Reviewed 03/26/19 @ 13:50 by Korina Carr) Sepsis due to Escherichia coli (Resolved) Hypoxia (Acute) Tobacco abuse (Resolved) Shortness of breath (Acute) Decreased pulse ox (Acute) RECOMMENDATIONS: 1. Aggressive pulmonary toileting 2. Obtain sputum culture 3. Continue empiric antibiotics and steroids 4. Possible Pleurx catheter in the future 5. Outpatient PET scan 6. Consider CT scan chest with PE protocol IMPRESSIONS: 1. Recurrent left pleural effusion/acute on chronic hypoxic respiratory insufficiency Laboratory data from 03/07/2019 are consistent with an exudative effusion by protein and LDH criteria with monocyte predominance. 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 Clinical concern for metastasis, but previous PET scan did not show hypermetabolic areas. Patient appears to be relatively stable on current nasal cannula oxygen. Patient does not have significant effusion to require Pleurx catheter placement at this time. Patient should have a walking oximetry prior to discharge. Long-term prognosis is extremely guarded given high clinical suspicion for malignancy with poor treat ment options. 2. History of non-small cell right paraspinal cancer Patient recently seen by oncology and surveillance was recommended. Unclear if current situation dictates outpatient PET scan would be recommended. Patient would likely be treated with conservative therapy given his current functional status. 3. Nicotine dependence/pyuria/chronic hypoxic respiratory failure/history of alcoholism/history of prostate cancer/CKD Complicates care, management, recovery and prognosis. Chronic respiratory failure is likely multifactorial. See problem 1. Code Visit Inpatient E&M: 02494 Subs Hosp L2
[2019-04-20] MEDS: predniSONE 20 MG Tablet 40 MG PO (09:27)
[2019-04-20 09:30] VITALS: BP 104/60; PULSE 90; RESP 18; TEMP 37.1; O2SAT 94; O2SAT 95
[2019-04-20] MEDS: Polyethylene Glycol 3350 17 GM PACKET PO (09:30)
[2019-04-20] MEDS: Famotidine 20 MG Tablet PO (09:30)
[2019-04-20] MEDS: Furosemide 40 MG Tablet PO (09:30)
[2019-04-20] MEDS: Sertraline 50 MG Tablet 25 MG PO (09:31)
[2019-04-20] MEDS: Glycerin/Hypromellose/PEG400 15 ml Bottle 1 DRP OPHTHALMIC (09:53)
[2019-04-20 09:54] VITALS: BP 109/60; PULSE 90
[2019-04-20] MEDS: Metoprolol Tartrate 25 MG Tablet 12.5 MG PO (09:54)
--- NOTE | 2019-04-20 10:49 | PCM.TXEXTCAR ---
- Diet 04/19/19 12:11 Diet: Regular Diet Food consistency:: Soft Liquid Consistency:: Regular/Thin Is pt able to select menu?: No - Routine Orders/Code Status O2 Liters per Minute: 4 O2 Frequency: Continuous Keep PO Greater than or Equal to (%): 92 Code Status: DNRCC - Wound(s) BLE-scratches Wound Type: scratches LEFT LOWER BACK Wound Type: Puncture - Therapies Weight Bearing: Full weight bearing Physical Therapy: Eval and Treat Occupational Therapy: Eval and Treat - Allergies/Procedures Done in Hospital Allergies/Adverse Reactions: Allergies doxycycline Allergy (Verified 04/19/19 06:52) pt is unsure tetracycline Allergy (Verified 04/19/19 02:46) Rash venom-honey bee [bee venom (honey bee)] Allergy (Verified 04/19/19 06:52) Swelling Procedures: Thoracentesis - Type of Care/Length of Stay Estimated LOS: More Than 30 Days Type of Care Needed: Halfway/Assisted Living Rehab Potential: Fair Prognosis: Fair - Additional Orders/Day of Discharge Day of Discharge: 04/20/19 - Follow Up Care Primary Care Physician: Heladio Rios MD [Primary Care Provider] - Within 2 Weeks Please Follow Up With: Edgardo Mina DO When: previously scheduled appointment for 05/01/19
--- NOTE | 2019-04-20 10:52 | TREXTCAR_ITS ---
- Diet 04/19/19 12:11 Diet: Regular Diet Food consistency:: Soft Liquid Consistency:: Regular/Thin Is pt able to select menu?: No - Routine Orders/Code Status O2 Liters per Minute: 4 O2 Frequency: Continuous Keep PO Greater than or Equal to (%): 92 Code Status: DNRCC - Wound(s) BLE-scratches Wound Type: scratches LEFT LOWER BACK Wound Type: Puncture - Therapies Weight Bearing: Full weight bearing Physical Therapy: Eval and Treat Occupational Therapy: Eval and Treat - Allergies/Procedures Done in Hospital Allergies/Adverse Reactions: Allergies doxycycline Allergy (Verified 04/19/19 06:52) pt is unsure tetracycline Allergy (Verified 04/19/19 02:46) Rash venom-honey bee [bee venom (honey bee)] Allergy (Verified 04/19/19 06:52) Swelling Procedures: Thoracentesis - Type of Care/Length of Stay Estimated LOS: More Than 30 Days Type of Care Needed: Group Home/Assisted Living Rehab Potential: Fair Prognosis: Fair - Additional Orders/Day of Discharge Day of Discharge: 04/20/19 - Follow Up Care Primary Care Physician: Heladio Rios MD [Primary Care Provider] - Within 2 Weeks Please Follow Up With: Edgardo Mina DO When: previously scheduled appointment for 05/01/19
--- NOTE | 2019-04-20 10:53 | PCM.DC.SUM ---
Discharge Date and Diagnosis - Problem List Patient Problems: Active and Suspected Problems (Last Reviewed 03/26/19 @ 13:50 by Korina Carr) Shortness of breath (Acute) Decreased pulse ox (Acute) Date of Admission: 04/19/19 Date of Discharge: 04/20/19 - Primary Discharge Diagnosis Active and Suspected Problems (Last Reviewed 03/26/19 @ 13:50 by Korina Carr) Shortness of breath (Acute) Decreased pulse ox (Acute) 1. Pleural effusion chronic present back in 2018 has had thoracenteses on 07/27/18, 01/05/19, 03/07/19 and 04/19 only 250cc removed today findings consistent with exudative effusion cytology has been negative for malignancy likely to recur follow up with Dr. Mina on 05/01 may need Pleur-X catheter for palliation Augmentin and prednisone 2. 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 Pyuria not sure this is an actual UTI 4. Chronic respiratory failure increased oxygen requirements due to pleural effusion likely will require more oxygen at discharge - Secondary Discharge Diagnosis Chronic Problems (Last Reviewed 03/26/19 @ 13:50 by Korina Carr) COPD (Chronic) prostate cancer (Chronic) status post radiation Alcoholism (Chronic) Urinary retention (Chronic) Non-small cell lung cancer (NSCLC) (Chronic) Pleural effusion on left (Chronic) Atelectasis of left lung (Chronic) Hospital Course and Treatment Imaging Results: Clinical Impression(s) from Imaging Studies Abdomen/Pelvis CT 04/19/19 03:14 IMPRESSION: Multilevel degenerative changes with areas of severe narrowing as discussed above. MRI may be performed to further evaluate as clinically indicated. Bilateral nephrolithiasis. There is no significant hydronephrosis identified. There is nonspecific perinephric stranding which may be age-related however if there is concern for infectious process correlate with urinalysis. Small pericardial effusion. Bilateral pleural effusions with adjacent atelectasis/infiltrate. Effusion on the left appears loculated. Area of low attenuation within the pancreatic head incompletely characterize on this noncontrast enhanced study. Recommend correlation with prior studies for stability versus ultrasound to further evaluate. This may represent focally dilated duct, pseudocyst or cystic neoplasm. 4 There are multiple renal cysts present. There is a hyperdense structure within the right kidney which may represent a hyperdense/proteinaceous cyst however the noncontrast study is limited and correlate with ultrasound on a nonemergent basis as underlying neoplasm cannot be totally excluded. No CT evidence for diverticulitis or appendicitis. Other findings as discussed above. Electronically Signed: Anjel Felisa, at 4:50 EDT Tel , Service support , Chest X-Ray 04/19/19 03:14 IMPRESSION: Increased left pleural effusion. Similar appearance to the pulmonary opacities within the left mid and lower lung zones. Cardiomegaly. Similar appearance to the right tiny effusion. Electronically Signed: Anjel Roberto, at 3:53 EDT Tel , Service support , Thoracentesis Ultrasound 04/19/19 06:28 IMPRESSION: Ultrasound-guided left thoracentesis. Electronically Signed: Momo Burns, at 10:15 EDT , Service support , Abdomen Ultrasound 04/19/19 07:41 IMPRESSION: Right renal cyst. Nonobstructing left renal calculi. Small right pleural effusion. Electronically Signed: Eliza Quintanilla MD at 16:08 EDT Tel , Service support , Chest X-Ray 04/19/19 10:15 IMPRESSION: Status post left thoracentesis. No evidence of pneumothorax. Mild residual pleural parenchymal changes at the left lung base. Progressive infiltration in the right upper lobe. Electronically Signed: Momo Burns, at 10:19 EDT , Service support , Mathieu Handy MD: pulmonology. Operations: None Procedures: Thoracentesis Summary of Care Provided: The patient is a 83 year old M presents due to increased oxygen requirements at his facility. Patient had a left lower lobe pleural effusion which is not new. Patient did undergo a ultrasound-guided thoracentesis on the that removed 250 cc of fluid. Studies were not checked but patient has had them previous checked and were consistent with an exudative effusion. Patient was seen in consultation by pulmonology for further recommendations. Patient was started on antibiotics as well as steroids. Patient will follow-up with Dr. Mina on May 01. Patient will need further follow-up chest x-ray. Patient may need to be considered for a Pleurx catheter for palliation given the patient's overall poor performance status and non-small cell lung cancer. Patient does have a non-small cell lung cancer that was treated solely with a radiation between July and August 2018. Patient was deemed not a candidate for surgery or surgery nor chemotherapy given his poor performance status. [] Patient Problems: Active and Suspected Problems (Last Reviewed 03/26/19 @ 13:50 by Korina Carr) Shortness of breath (Acute) Decreased pulse ox (Acute) - Physical Exam General: Alert, No apparent distress, - - no respiratory distress. no conversational dyspnea HEENT: Atraumatic, Normocephalic Lungs: - - diminished in LLL Vital Signs Temp Pulse Resp BP Pulse Ox 37.1 C 90 18 109/60 95 04/20/19 09:30 04/20/19 09:54 04/20/19 09:30 04/20/19 09:54 04/20/19 09:30 Oxygen Flow Rate (L/min) [4] 4 Oxygen Flow Rate (L/min) [3] 4 Oxygen Flow Rate (L/min) [2] 4 Oxygen Flow Rate (L/min) [1 ( 4 Initial Baseline)] Oxygen Flow Rate (L/min) 4 Oxygen Delivery Method [4] Nasal Cannula Oxygen Delivery Method [3] Nasal Cannula Oxygen Delivery Method [2] Nasal Cannula Oxygen Delivery Method [1 ( Nasal Cannula Initial Baseline)] Oxygen Delivery Method Nasal Cannula Weight: 106.4 kg Body Mass Index (BMI) 29.3 Finger Stick Blood Glucose 192 Intake and Output for Last 24 Hours 04/18/19 04/19/19 04/20/19 23:59 23:59 23:59 Intake Total 440 / 440 558 / 558 Output Total 1300 / 1300 575 / 575 Balance -860 / -860 - Discharge Diet: No Restrictions Discharge Activity: Return to Normal Activity Weight Bearing Status: Weight bearing as tolerated Call your doctor if you observe: Fever of 101 or Higher, Shortness of breath Home Medications: Medications to take at Discharge Ipratropium/Albuterol Sulfate [Duoneb] 3 ml INHALATION Q4H.RT 07/05/18 Multivitamin [Daily Multiple Vitamin] 1 ea PO DAILY 07/05/18 Vits A,C,E/Lutein/Minerals [Vision Formula with Lutein Tab] 1 cap PO DAILY 07/18/18 Fish Oil 1 cap PO DAILY 09/27/18 Acetaminophen [Tylenol] 325 mg PO Q4H PRN 10/10/18 Albuterol Inhaler [Ventolin Hfa] 2 inh IH 4X/DAY 10/10/18 Benzocaine/Menthol [Sore Throat Lozenges] 1 ea MM PRN PRN 10/10/18 Bisacodyl [Dulcolax] 10 mg RECTAL DAILY PRN PRN 10/10/18 Chlorhexidine Gluconate [Peridex] 15 ml MM 4X/DAY PRN 10/10/18 Citric AC/Gluconolact/Mag Carb [Renacidin Irrigation Solution] 30 ml IR PRN PRN 10/10/18 Guaifenesin [Mucinex] 600 mg PO PRN PRN 10/10/18 Ibuprofen [Ibu] 1 tab PO TID 10/10/18 Lactobacillus Acidophilus [Acidophilus] 1 ea PO DAILY 10/10/18 Loperamide [Imodium] 2 mg PO PRN PRN 10/10/18 Magnesium Hydroxide [Milk Of Magnesia] 30 ml PO DAILY PRN PRN 10/10/18 Na Phos,M-B/Na Phos,Di-Ba [Fleet Enema] 1 bottle RECTAL PRN PRN 10/10/18 Ondansetron HCl [Zofran] 4 mg PO PRN PRN 10/10/18 Phenazopyridine [Pyridium] 100 mg PO TID 10/10/18 Polyvinyl Alcohol [Artificial Tears] 15 ml OP DAILY 10/10/18 Pot Bicarb/Sod Bicarb/Cit AC [Joan-Millen Gold Tab Eff] 1 tab PO DAILY PRN 10/10/18 Psyllium Husk (with Sugar) [Renata-Mucil Powder] 368 gm PO DAILY 10/10/18 Clear Eyes Max Redness Rlf Drp 2 drp EACH EYE Q4H 11/27/18 Polyethylene Glycol 3350 [Miralax] 17 gm PO DAILY 11/27/18 albuterol sulfate 2.5 mg/3 mL (0.083 %) solution for nebulization 2.5 mg INHALATION Q4H PRN 12/11/18 calcium carbonate 750 mg-simethicone 80 mg chewable tablet 2 tab PO .Q6 PRN tab 12/11/18 ipratropium bromide 0.03 % nasal spray 2 spray INTRANASAL BID-TID PRN 12/11/18 sertraline 25 mg tablet 25 mg PO DAILY 12/11/18 atorvastatin 10 mg tablet 10 mg PO QHS tab 01/22/19 fluticasone propionate 50 mcg/actuation blister powder for inhalation 1 inh INHALATION BID 02/27/19 furosemide 40 mg tablet 40 mg PO DAILY 02/27/19 lisinopril 5 mg tablet 5 mg PO DAILY 02/27/19 metoprolol tartrate 25 mg tablet 12.5 mg PO BID tab 02/27/19 ranitidine 75 mg tablet 75 mg PO BID 02/27/19 Amox/Clavulanate Tablet [Augmentin Tablet] 875 mg PO Q12H #12 tablet 04/20/19 predniSONE tablet 40 mg PO DAILY@0800 tablet 04/20/19 Following Prescrptions Were Given to Patient: Amox/Clavulanate Tablet [Augmentin Tablet] 875 mg PO Q12H #12 tablet Primary Care Physician: Heladio Rios MD [Primary Care Provider] - Within 2 Weeks Please Follow Up With: Edgardo Mina DO When: previously scheduled appointment for 05/01/19 Disposition: Asstd Living/Non-Skill [facility] Minutes spent on discharge:: 32 Patient Condition:: Fair Medical Necessity - Tobacco Use Smoking Status: Former smoker Tobacco Use: Non-smoker Meaningful Use Info Meaningful Use Diagnoses (Choose all that apply): None applicable Code Visit OBSV E&M: 39702 Observation care discharge
--- NOTE | 2019-04-20 10:57 | DS.PCM_ITS ---
Discharge Date and Diagnosis - Problem List Patient Problems: Active and Suspected Problems (Last Reviewed 03/26/19 @ 13:50 by Korina Carr) Shortness of breath (Acute) Decreased pulse ox (Acute) Date of Admission: 04/19/19 Date of Discharge: 04/20/19 - Primary Discharge Diagnosis Active and Suspected Problems (Last Reviewed 03/26/19 @ 13:50 by Korina Carr) Shortness of breath (Acute) Decreased pulse ox (Acute) 1. Pleural effusion * chronic * present back in 2018 * has had thoracenteses on 07/27/18, 01/05/19, 03/07/19 and 04/19 * only 250cc removed today * findings consistent with exudative effusion * cytology has been negative for malignancy * likely to recur * follow up with Dr. Mina on 05/01 * may need Pleur-X catheter for palliation * Augmentin and prednisone 2. Stage IB NSCLC * received XRT 08/17-09/13/18, not candidate for chemo in past * follow up with medical oncology as outpt +/- PET scan 3. Pyuria * not sure this is an actual UTI 4. Chronic respiratory failure * increased oxygen requirements * due to pleural effusion * likely will require more oxygen at discharge - Secondary Discharge Diagnosis Chronic Problems (Last Reviewed 03/26/19 @ 13:50 by Korina Carr) COPD (Chronic) prostate cancer (Chronic) status post radiation Alcoholism (Chronic) Urinary retention (Chronic) Non-small cell lung cancer (NSCLC) (Chronic) Pleural effusion on left (Chronic) Atelectasis of left lung (Chronic) Hospital Course and Treatment Imaging Results: Clinical Impression(s) from Imaging Studies Abdomen/Pelvis CT 04/19/19 03:14 IMPRESSION: Multilevel degenerative changes with areas of severe narrowing as discussed above. MRI may be performed to further evaluate as clinically indicated. Bilateral nephrolithiasis. There is no significant hydronephrosis identified. There is nonspecific perinephric stranding which may be age-related however if there is concern for infectious process correlate with urinalysis. Small pericardial effusion. Bilateral pleural effusions with adjacent atelectasis/infiltrate. Effusion on the left appears loculated. Area of low attenuation within the pancreatic head incompletely characterize on this noncontrast enhanced study. Recommend correlation with prior studies for stability versus ultrasound to further evaluate. This may represent focally dilated duct, pseudocyst or cystic neoplasm. 4 There are multiple renal cysts present. There is a hyperdense structure within the right kidney which may represent a hyperdense/proteinaceous cyst however the noncontrast study is limited and correlate with ultrasound on a nonemergent basis as underlying neoplasm cannot be totally excluded. No CT evidence for diverticulitis or appendicitis. Other findings as discussed above. Electronically Signed: Anjel Roberto, at 4:50 EDT Tel , Service support , Chest X-Ray 04/19/19 03:14 IMPRESSION: Increased left pleural effusion. Similar appearance to the pulmonary opacities within the left mid and lower lung zones. Cardiomegaly. Similar appearance to the right tiny effusion. Electronically Signed: Anjel Roberto, at 3:53 EDT Tel , Service support , Thoracentesis Ultrasound 04/19/19 06:28 IMPRESSION: Ultrasound-guided left thoracentesis. Electronically Signed: Momo Burns, at 10:15 EDT , Service support , Abdomen Ultrasound 04/19/19 07:41 IMPRESSION: Right renal cyst. Nonobstructing left renal calculi. Small right pleural effusion. Electronically Signed: Eliza Quintanilla MD at 16:08 EDT Tel , Service support , Chest X-Ray 04/19/19 10:15 IMPRESSION: Status post left thoracentesis. No evidence of pneumothorax. Mild residual pleural parenchymal changes at the left lung base. Progressive infiltration in the right upper lobe. Electronically Signed: Momo Burns, at 10:19 EDT , Service support , Mathieu Handy MD: pulmonology. Operations: None Procedures: Thoracentesis Summary of Care Provided: The patient is a 83 year old M presents due to increased oxygen requirements at his facility. Patient had a left lower lobe pleural effusion which is not new. Patient did undergo a ultrasound-guided thoracentesis on the that removed 250 cc of fluid. Studies were not checked but patient has had them previous c hecked and were consistent with an exudative effusion. Patient was seen in consultation by pulmonology for further recommendations. Patient was started on antibiotics as well as steroids. Patient will follow-up with Dr. Mina on May 01. Patient will need further follow-up chest x-ray. Patient may need to be considered for a Pleurx catheter for palliation given the patient's overall poor performance status and non-small cell lung cancer. Patient does have a non- small cell lung cancer that was treated solely with a radiation between July and August 2018. Patient was deemed not a candidate for surgery or surgery nor chemotherapy given his poor performance status. [] Patient Problems: Active and Suspected Problems (Last Reviewed 03/26/19 @ 13:50 by Korina Carr) Shortness of breath (Acute) Decreased pulse ox (Acute) - Physical Exam General: Alert, No apparent distress, - - no respiratory distress. no conversational dyspnea HEENT: Atraumatic, Normocephalic Lungs: - - diminished in LLL Vital Signs Temp Pulse Resp BP Pulse Ox 37.1 C 90 18 109/60 95 04/20/19 09:30 04/20/19 09:54 04/20/19 09:30 04/20/19 09:54 04/20/19 09:30 Oxygen Flow Rate (L/min) [4] 4 Oxygen Flow Rate (L/min) [3] 4 Oxygen Flow Rate (L/min) [2] 4 Oxygen Flow Rate (L/min) [1 ( 4 Initial Baseline)] Oxygen Flow Rate (L/min) 4 Oxygen Delivery Method [4] Nasal Cannula Oxygen Delivery Method [3] Nasal Cannula Oxygen Delivery Method [2] Nasal Cannula Oxygen Delivery Method [1 ( Nasal Cannula Initial Baseline)] Oxygen Delivery Method Nasal Cannula Weight: 106.4 kg Body Mass Index (BMI) 29.3 Finger Stick Blood Glucose 192 Intake and Output for Last 24 Hours 04/18/19 04/19/19 04/20/19 23:59 23:59 23:59 Intake Total 440 / 440 558 / 558 Output Total 1300 / 1300 575 / 575 Balance -860 / -860 - Discharge Diet: No Restrictions Discharge Activity: Return to Normal Activity Weight Bearing Status: Weight bearing as tolerated Call your doctor if you observe: Fever of 101 or Higher, Shortness of breath Home Medications: Medications to take at Discharge Ipratropium/Albuterol Sulfate [Duoneb] 3 ml INHALATION Q4H.RT 07/05/18 Multivitamin [Daily Multiple Vitamin] 1 ea PO DAILY 07/05/18 Vits A,C,E/Lutein/Minerals [Vision Formula with Lutein Tab] 1 cap PO DAILY 07/18/18 Fish Oil 1 cap PO DAILY 09/27/18 Acetaminophen [Tylenol] 325 mg PO Q4H PRN 10/10/18 Albuterol Inhaler [Ventolin Hfa] 2 inh IH 4X/DAY 10/10/18 Benzocaine/Menthol [Sore Throat Lozenges] 1 ea MM PRN PRN 10/10/18 Bisacodyl [Dulcolax] 10 mg RECTAL DAILY PRN PRN 10/10/18 Chlorhexidine Gluconate [Peridex] 15 ml MM 4X/DAY PRN 10/10/18 Citric AC/Gluconolact/Mag Carb [Renacidin Irrigation Solution] 30 ml IR PRN PRN 10/10/18 Guaifenesin [Mucinex] 600 mg PO PRN PRN 10/10/18 Ibuprofen [Ibu] 1 tab PO TID 10/10/18 Lactobacillus Acidophilus [Acidophilus] 1 ea PO DAILY 10/10/18 Loperamide [Imodium] 2 mg PO PRN PRN 10/10/18 Magnesium Hydroxide [Milk Of Magnesia] 30 ml PO DAILY PRN PRN 10/10/18 Na Phos,M-B/Na Phos,Di-Ba [Fleet Enema] 1 bottle RECTAL PRN PRN 10/10/18 Ondansetron HCl [Zofran] 4 mg PO PRN PRN 10/10/18 Phenazopyridine [Pyridium] 100 mg PO TID 10/10/18 Polyvinyl Alcohol [Artificial Tears] 15 ml OP DAILY 10/10/18 Pot Bicarb/Sod Bicarb/Cit AC [[place] Gold Tab Eff] 1 tab PO DAILY PRN 10/10/18 Psyllium Husk (with Sugar) [Renata-Mucil Powder] 368 gm PO DAILY 10/10/18 Clear Eyes Max Redness Rlf Drp 2 drp EACH EYE Q4H 11/27/18 Polyethylene Glycol 3350 [Miralax] 17 gm PO DAILY 11/27/18 albuterol sulfate 2.5 mg/3 mL (0.083 %) solution for nebulization 2.5 mg INHALATION Q4H PRN 12/11/18 calcium carbonate 750 mg-simethicone 80 mg chewable tablet 2 tab PO .Q6 PRN tab 12/11/18 ipratropium bromide 0.03 % nasal spray 2 spray INTRANASAL BID-TID PRN 12/11/18 sertraline 25 mg tablet 25 mg PO DAILY 12/11/18 atorvastatin 10 mg tablet 10 mg PO QHS tab 01/22/19 fluticasone propionate 50 mcg/actuation blister powder for inhalation 1 inh INHALATION BID 02/27/19 furosemide 40 mg tablet 40 mg PO DAILY 02/27/19 lisinopril 5 mg tablet 5 mg PO DAILY 02/27/19 metoprolol tartrate 25 mg tablet 12.5 mg PO BID tab 02/27/19 ranitidine 75 mg tablet 75 mg PO BID 02/27/19 Amox/Clavulanate Tablet [Augmentin Tablet] 875 mg PO Q12H #12 tablet 04/20/19 predniSONE tablet 40 mg PO DAILY@0800 tablet 04/20/19 Following Prescrptions Were Given to Patient: Amox/Clavulanate Tablet [Augmentin Tablet] 875 mg PO Q12H #12 tablet Primary Care Physician: Heladio Rios MD [Primary Care Provider] - Within 2 Weeks Please Follow Up With: Edgardo Mina DO When: previously scheduled appointment for 05/01/19 Disposition: Asstd Living/Non-Skill NH Minutes spent on discharge:: 32 Patient Condition:: Fair Medical Necessity - Tobacco Use Smoking Status: Former smoker Tobacco Use: Non-smoker Meaningful Use Info Meaningful Use Diagnoses (Choose all that apply): None applicable Code Visit OBSV E&M: 69509 Observation care discharge
--- NOTE | 2019-04-20 11:41 | CASEMGMT ---
Social Work Note Physician is discharging pt back to [facility] today. SCOTTIE faxed completed discharge paperwork to [facility] including transfer to extended care facility, signed medication list and any scripts. Original in SNF folder and copy on pt's chart. SCOTTIE spoke with RN who states pt needs to be transported via cot and prefers before 1:00pm. SCOTTIE placed a call to [facility] who is unable to transport pt before 1:00pm. SCOTTIE placed a call to [facility] and arranged transportation via cot for 12:30pm. Transportation form on SNF folder and copy on pt's chart. SCOTTIE placed a call to Maggie at [facility] and updated her on pt's discharge today and transportation time. Maggie states that pt will be returning skilled. SCOTTIE completed PAS/RR in [facility] as pt will be returning skilled to facility. SCOTTIE updated pt on discharge today and transportation time. Pt again denied this worker calling any family or friends to update on discharge. Plan: Pt to discharge to [facility] skilled today with [facility] transporting via cot at 12:30pm Carlota Craven [employer], [employer]
--- NOTE | 2019-04-20 12:17 | NURSING ---
pt to [facility] via cot by [facility]aud
== END 2019-04-20 12:10 | disposition skilled nursing facility (03) ==
LOC: ED 03:19 → MS3 05:47
PROVIDERS: Admitting Provider Internal Medicine; Emergency Provider Emergency Medicine; Family Provider Family Medicine; PCP Family Medicine; Referring Provider Internal Medicine
DX: J90 Pleural effusion, not elsewhere classified (principal); C34.90 Malignant neoplasm of unspecified part of unspecified bronchus or lung; J44.9 Chronic obstructive pulmonary disease, unspecified; E78.5 Hyperlipidemia, unspecified; K21.9 Gastro-esophageal reflux disease without esophagitis; I13.0 Hypertensive heart and chronic kidney disease with heart failure and stage 1 through stage 4 chronic kidney disease, or unspecified chronic kidney disease; I50.9 Heart failure, unspecified; N18.3 Chronic kidney disease, stage 3 (moderate); N30.00 Acute cystitis without hematuria; R33.9 Retention of urine, unspecified; J96.11 Chronic respiratory failure with hypoxia; Z79.899 Other long term (current) drug therapy; Z79.51 Long term (current) use of inhaled steroids; Z92.3 Personal history of irradiation; Z85.46 Personal history of malignant neoplasm of prostate; Z87.891 Personal history of nicotine dependence; F10.21 Alcohol dependence, in remission
CPT/HCPCS: 32555; 71045; 71046; 74176; 76700; 80053; 81001; 83605; 83690; 84484; 85025; 85610; 87040; 87077; 87086; 87088; 87186; 93005; 94640; 96365; 96366; 97162; 97166; 97530; 99218; 99285; J7050; A4216; G0378

== ENCOUNTER 2019-05-27 10:46 | Inpatient (IN) | payer MEDICARE, SELFPAY ==
[2018-08-07 14:15] VITALS: BMI 30.4
[2019-05-01 13:23] VITALS: BMI 29.6
[2019-05-27] VITALS (12 sets, daily range): BP systolic 104–129; BP diastolic 62–65; PULSE 76–114; RESP 16–30; TEMP 36.6–37.2; O2SAT 94–97; BMI 29.3; BMI 28.5; BMI 28.6
--- NOTE | 2019-05-27 11:09 | CT_ITS ---
STUDY: CT ABDOMEN AND PELVIS WITH CONTRAST REASON FOR EXAM: Male, 83 years old. Abdominal pain, bloating, alcoholism, prostate cancer, lung cancer, shortness of breath, COPD, chronic kidney disease RADIATION DOSAGE (If Supplied By Facility): CTDIvol = ( 23.04 ) mGy, DLP = ( 2225.68 ) mGycm TECHNIQUE: Transaxial images were obtained from the dome of the diaphragm to the symphysis pubis without oral contrast. 100 ml of Isovue 300 contrast was administered. Sagittal and coronal images were reconstructed. Individualized dose optimization techniques were used for this CT. COMPARISON: CT chest same date. CT abdomen and pelvis 04/19/2019. FINDINGS: Body wall soft tissues: No acute process. Osseous structures: Prominent multilevel lumbar spondylosis with multilevel foraminal narrowing. Inferior chest: See today's chest CT dictation. Hepatobiliary: Normal. Pancreas: Moderate atrophy. Spleen: Normal. Adrenal glands: Normal. Urogenital: Small benign renal cysts. Left renal staghorn calculi, stable. No calculi of the right kidney. No hydronephrosis or hydroureter. Chronic perinephric stranding bilaterally. No ureteral calculus. Urinary bladder decompressed by Avila catheter. Unremarkable prostate. Pelvic floor and sidewalls and retroperitoneum: No mass or adenopathy. Vasculature: Moderate aortoiliac atherosclerosis. Stomach: No acute process. Small bowel and mesentery: No acute process. Large bowel: Normal slender appendix. Sigmoid diverticulosis without diverticulitis. Normal rectum. Free fluid or free air: None. CT/Abdomen/Pelvis WITH Contrast IMPRESSION: 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 Stable benign renal cysts bilaterally. Pancreatic atrophy. No acute abdominopelvic process is evident. There is no evidence of bowel distention or inflammation. There is no ascites. There are no specific features of cirrhosis. Electronically Signed: Byron Alejandre MD at 15:38 EDT Tel , Service support ,
--- NOTE | 2019-05-27 11:09 | RAD_ITS ---
STUDY: X-RAY CHEST REASON FOR EXAM: Male, 83 years old. Shortness of breath, abdominal pain TECHNIQUE: Frontal view COMPARISON: April 19, 2019 FINDINGS: The lungs are fully expanded. Moderate left pleural effusion, increased since the previous study. Possible left hilar mass/consolidation. Stable right parahilar infiltrate. Normal size heart. Normal mediastinum and brad. Normal visualized pulmonary arteries. Calcified aortic arch and descending thoracic aorta. Degenerative changes of the thoracic spine. Normal visualized ribs, clavicles, and shoulders. There is no demonstrated abnormality of the visualized soft tissue structures of the upper abdomen. RAD/Chest 1 View (Portable) IMPRESSION: Moderate left pleural effusion, increased since the previous study. Possible left hilar mass/consolidation. Stable right parahilar infiltrate. Correlation with CT if needed. Electronically Signed: Aman Ortega DO at 12:52 EDT Tel [phone], Service support ,
[2019-05-27] MEDS: 0.9% Normal Saline 1,000 ML 125 ML IV (11:22)
[2019-05-27 11:35] LABS: Absolute Lymphocyte Count 0.61 X10^3/ul (0.83-4.51); Absolute Neutrophil Count 4.3 X10^3/uL (2.0-7.7); Basophil# 0.01 X10^3/uL; Basophil% 0.2 % (0-1); Eosinophils% 1.8 % (0-5); Hematocrit 34.8 % (40-54); Hemoglobin 12.1 g/dl (13.0-16.5); Lymphocyte # 0.61 X10^3/ul (4.0); Lymphocyte % 10.9 % (19-41); Mean Corp Hgb Conc 34.8 g/gl (32-36); Mean Corpuscular Hgb 31.7 pg (27.0-32.0); Mean Corpuscular Volume 91.1 fL (80-94); Mean Platelet Vol. 8.1 fl (6.2-12.0); Monocyte# 0.56 X10^3/uL; Neutrophil # 4.29 X10^3/uL (2.7-7.7); Neutrophil % 76.9 % (47-70); Platelet Count 286 K/mm3 (150-450); RBC Distribution Width CV 13.4 % (11.6-14.6); RBC Distribution Width SD 44.1 fl (35.1-43.9); Red Blood Count 3.82 M/mm3 (4.6-6.2); White Blood Count 5.6 K/mm3 (4.4-11.0)
[2019-05-27 11:36] LABS: POSITIVE COUNT NO; POSITIVE DIFFERENTIAL NO; POSITIVE MORPHOLOGY NO
[2019-05-27] MEDS: Ipratropium/Albuterol Sulfate 3 ML AMPUL.NEB INHALATION ×2 (11:40→19:00)
[2019-05-27 11:47] LABS: ALB/GLOB Ratio 0.5 RATIO (0.9-2.4); AST(SGOT) 27 U/L (15-37); Alanine Aminotransfer ALT/SGPT 32 U/L (16-61); Albumin, Serum 2.4 g/dL (3.2-5.0); Alkaline Phosphatase 168 U/L (45-117); Anion Gap 6 (5-15); BUN 20 mg/dL (7-18); Calcium,Total 8.6 mg/dL (8.5-10.1); Chloride 91 mmol/L (98-107); Creatinine, Serum 1.05 mg/dL (0.70-1.30); EST Glomerular Filtration Rate 72 mL/min (>60); Est Glom Filt Rate - Afr Amer 87 mL/min (>60); Estimated Creatinine Clearance 67.74 ml/min; Globulin 4.5 g/dL (2.2-4.2); Glucose 120 mg/dL (74-106); Lipase 40 U/L (73-393); Potassium 4.3 mmol/L (3.5-5.1); Protein, Total 6.9 g/dL (6.4-8.2); Sodium Level 130 mmol/L (136-145)
[2019-05-27 11:58] LABS: Mucous, Urine 0 SEEN /hpf (<or=2+); Red Blood Cells-Urine 0 SEEN /hpf (0-5); Squamous Epithelial Cells - UA 0 SEEN /hpf (0-5)
[2019-05-27 12:00] LABS: Color, Urine Yellow (Yellow); Glucose, Dipstick Normal (Normal); Ketone-Dipstick Negative (Negative); Leukocyte Esterase-Dipstick 500 /ul (Negative); Nitrite-Dipstick Positive (Negative); Occult Blood-Urine 25 /ul (Negative); Protein-Dipstick 15 mg/dl (Negative); Specific Gravity, Urine 1.015 (1.002-1.030); Urine Bilirubin Dipstick Negative (Negative); Urine Clarity Clear (Clear); Urine Urobilinogen Normal (Normal)
[2019-05-27 12:07] LABS: Amorphous Sediment 2+; Bacteria 1+ /hpf (None Seen); White Blood Cells 10-25 SEEN /hpf (0-5)
[2019-05-27] MEDS: Ceftriaxone 1 GM/50 ML BAG IV (13:00)
--- NOTE | 2019-05-27 13:37 | CT_ITS ---
STUDY: CTA CHEST REASON FOR EXAM: Male, 83 years old. Abdominal pain, bloating, chronic kidney disease, alcoholism, prostate cancer, lung cancer, COPD, shortness of breath. RADIATION DOSAGE (If Supplied By Facility): CTDIvol = ( 23.04 ) mGy, DLP = ( 2225.68 ) mGycm TECHNIQUE: The examination was performed with the intravenous administration of 100 IV Isovue 300. Post-processing of the angiographic images was performed, with multiplanar reformation and 3D reconstruction. Individualized dose optimization techniques were used for this CT. COMPARISON: CT abdomen and pelvis same date. 04/19/2018. CT chest 2017. FINDINGS: Supraclavicular: No acute process. Thoracic body wall soft tissues: No acute process. Osseous structures: No acute process. Mediastinum: Normal esophagus. A few small lymph nodes not pathologically enlarged. Right hilum, enlarged lymph node 2.4 cm. Additional smaller lymph nodes. Cardiovascular: Normal pericardial effusion. Mild cardiomegaly. Moderate carotid calcifications. Mild aortic valve cusp secretions. Aorta: No acute process. Pulmonary arteries: No acute process. Lungs: Likely left pleural effusion with a greatest depth of about 4.2 cm superiorly, and at the lung bases 5.3 cm. Small loculated right effusion. Dense consolidation of subsegmental lung in the left upper lobe posterior segment, left lower lobe basilar segment. Bandlike lung consolidation extending outward from the superior hilum along the fissure. Small loculated effusion of the right apical lung. Volume loss of the left consistent with partial lobectomy. Left upper lobe anterior segment distribution, additional dense consolidation abutting the pleura measuring about 4.[address]/CTA Chest W/WO Contrast IMPRESSION: Compared to imaging of March 2019, loculated left effusion unchanged, left lower lobe subsegmental region of dense consolidation unchanged, left upper lobe consolidated regions unchanged. Right upper lobe bandlike consolidation mildly progressed. Right effusions loculated and the upper and lower lung on the lateral pleural margin, new. Pericardial effusion new. Right hilar lymph node increased in size. Electronically Signed: Byron Alejandre MD at 15:23 EDT Tel , Service support ,
--- NOTE | 2019-05-27 16:20 | ED.DCSUM_ITS ---
- ER Visit Summary Date of Service: 05/27/19 Chief Complaint: [Abdominal pain] History of Present Illness: The patient is a 83 M [to the emergency department, parents around 3 AM. She states that he had been constipated for 2 or 3 days and took milk of magnesium and had a good bowel movement yesterday. Around 3 AM he awoke with severe abdominal pain and bloating. He started feeling short of breath and he was sent to the ER for further evaluation. Patient has a history of COPD, GERD, high cholesterol, small cell lung cancer, and pleural effusions. Patient states that he had a left pleural effusion that has been tapped multiple times in the past. He denies any fevers. He denies significant coug h.] Physical Examination: [HEENT-PERRLA, EOMI. Cranial nerves II through XII grossly intact. TMs clear. Mucous membranes moist. No adenopathy. Cardiovascular-regular rate and rhythm without murmur or ectopy Lungs-aeration bilaterally. Patient has rales in both bases. Diminished breath sounds on the left compared to the right. Mild tachypnea. Abdomen-normoactive bowel sounds, soft. Patient has diffuse tenderness to palpation. There is no rebound, rigidity, cranial signs. Mild distention. Extremities-intact ?4, normal range of motion, normal pulses, atraumatic] Test Results: [EKG obtained showed atrial fibrillation with a ventricular rate of 93 bpm. CBC with differential 5.6, hemoglobin 12, hematocrit 35, platelets of 86. Chemistries unremarkable. LFTs were normal. Lipase was 40. Urinalysis was positive for 500 leukocyte esterase as well as nitrates and 10-25 WBCs. Troponin is less than 0.015. Chest x-ray showed a left effusion and left hilar mass/consolidation. Patient also had a right perihilar infiltrate and recommended CT scan of the chest. CT scan of the chest showed loculated left effusion which is chronic and a new right pleural effusion and new pericardial effusion. Patient has some increased adenopathy noted. Patient also had a CT scan of the abdomen pelvis that showed essentially nothing acute.] Emergency Department Course and Treatment: [He was treated with Rocephin 1 g IV. In case was discussed with hospitalist evaluate for admission.] Treatment Plan: [Admit] Disposition: [Admit] Impression: [UTI Abdominal pain Dyspnea secondary to pleural effusions Pericardial effusion] This note was generated with [employer] dictation software. It may contain incorrect words, spelling, and punctuation that were not noted in review of the chart prior to signing ED Disposition - Plan for ED Patient: Referrals: Heladio Rios MD [Primary Care Provider] -
--- NOTE | 2019-05-27 16:22 | HP.PCM_ITS ---
History of Present Illness The patient is a 83 year old M [] Past Medical History Past Medical History (Chronic Problems): Chronic Problems (Last Reviewed 05/01/19 @ 13:28 by Miranda Lara) COPD (Chronic) prostate cancer (Chronic) status post radiation Alcoholism (Chronic) Urinary retention (Chronic) Non-small cell lung cancer (NSCLC) (Chronic) Pleural effusion on left (Chronic) Atelectasis of left lung (Chronic) Medical History: Medical History (Last Reviewed 05/01/19 @ 13:28 by Miranda Lara) Abnormal prostate biopsy R89.7 05/04/2006 CKD (chronic kidney disease) N18.9 COPD (chronic obstructive pulmonary disease) J44.9 GERD (gastroesophageal reflux disease) K21.9 H/O tooth extraction K08.409 x9 teeth 07/2018 H/O urinary retention Z87.898 History of E. 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 Allergies doxycycline Allergy (Verified 05/01/19 13:24) pt is unsure tetracycline Allergy (Verified 05/01/19 13:24) Rash venom-honey bee [bee venom (honey bee)] Allergy (Verified 05/01/19 13:24) Swelling Home Medications: Ambulatory Orders Medication Instructions Recorded Albuterol Aerosols [Ventolin 2.5 mg INHALATION Q4H PRN PRN 05/27/19 Aerosols] Atorvastatin Calcium 1 tab PO DAILY 05/27/19 Budesonide Aerosol [Pulmicort 1 inhaler INHALATION BID 05/27/19 Respules] Furosemide [Lasix] 40 mg PO BID 05/27/19 Glycopyrrolate/Formoterol Fum 2 puff INHALATION Q12H 05/27/19 [Bevespi Aerosphere Inhaler] Ipratropium/Albuterol Sulfate 3 ml INHALATION Q4H.RT 05/27/19 [Duoneb] L. Acidophilus/L.bulgaricus 1 ea PO DAILY 05/27/19 [Lactobacillus Tablet] Lisinopril 5 mg PO DAILY 05/27/19 Lutein Extract/Zeaxanthin Ext 1 ea PO TUFR 05/27/19 [Lutein 15 mg Softgel] Multivitamin [Daily Value] 1 ea PO DAILY 05/27/19 [place]-3 Fatty Acids/Fish Oil [Fish 1 ea PO DAILY 05/27/19 Oil 1,000 mg Capsule] Ondansetron HCl [Zofran] 4 mg PO Q6H PRN 05/27/19 Ranitidine [Zantac] 75 mg PO DAILY 05/27/19 Sertraline HCl [Zoloft] 25 mg PO DAILY 05/27/19 Surgical History: noncontributory Psychiatric History: No pertinent psych hx Smoking Status: Former smoker - *Family History Paternal Family History: Family History (Last Reviewed 05/01/19 @ 13:28 by Miranda Lara) Father Brain cancer Mother Cervical cancer History Items: - - brain tumor Maternal Family History: Family History (Last Reviewed 05/01/19 @ 13:28 by Miranda Lara) Father Brain cancer Mother Cervical cancer History Items: Cancer - cervical, Hypertension - Physical Exam Vital Signs Temp Pulse Resp BP Pulse Ox 97.8 F 76 17 123/63 H 97 05/27/19 10:47 05/27/19 15:54 05/27/19 15:54 05/27/19 15:54 05/27/19 15:54 Oxygen Flow Rate (L/min) 2 Oxygen Delivery Method Nasal Cannula Weight: 241 lb 2.971 oz Body Mass Index (BMI) 29.3 Finger Stick Blood Glucose 192 Laboratory Tests Past 24 Hrs 05/27/19 05/27/19 05/27/19 11:10 11:10 11:30 WBC 5.6 RBC 3.82 L Hgb 12.1 L Hct 34.8 L MCV 91.1 MCH 31.7 MCHC 34.8 RDW 13.4 RDW Differential 44.1 H Plt Count 286 MPV 8.1 Immature Gran % (Auto) 0.200 Neut % (Auto) 76.9 H Lymph % (Auto) 10.9 L [place] % (Auto) 10.0 Eos % (Auto) 1.8 Baso % (Auto) 0.2 Absolute Neuts (auto) 4.3 Absolute Lymphs (auto) 0.61 L Total Counted Not Reportable Sodium 130 L Potassium 4.3 Chloride 91 L Carbon Dioxide 33.0 H Anion Gap 6 BUN 20 H Creatinine 1.05 Estim Creat Clear Calc 67.74 Est GFR (MDRD) Af Amer 87 Est GFR (MDRD) Non-Af 72 BUN/Creatinine Ratio 19.0 Glucose 120 H Calcium 8.6 Total Bilirubin 0.30 AST 27 ALT 32 Alkaline Phosphatase 168 H Troponin I < 0.015 Total Protein 6.9 Albumin 2.4 L Globulin 4.5 H Albumin/Globulin Ratio 0.5 L Lipase 40 L Urine Color Yellow Urine Clarity Clear Urine pH 9.0 Ur Specific [place] 1.015 Urine Protein 15 H Urine Glucose (UA) Normal Urine Ketones Negative Urine Occult Blood 25 H Urine Nitrite Positive H Urine Bilirubin Negative Urine Urobilinogen Normal Ur Leukocyte Esterase 500 H Urine RBC 0 SEEN Urine WBC 10-25 SEEN Ur Squamous Epith Cells 0 SEEN Amorphous Sediment 2+ Urine Bacteria 1+ Urine Mucus 0 SEEN Assessment/Plan All Active Problems (Last Reviewed 05/01/19 @ 13:28 by Miranda Lara) Sepsis due to Escherichia coli (Resolved) Hypoxia (Acute) Tobacco abuse (Resolved) Shortness of breath (Acute) Decreased pulse ox (Acute)
--- NOTE | 2019-05-27 16:25 | NURSING ---
PCU PLEURAL EFFUSION [facility]OR[facility]
--- NOTE | 2019-05-27 16:38 | NURSING ---
128 PLEURAL EFFSION KORAM
--- NOTE | 2019-05-27 16:52 | PCM.HP.STD ---
<Jay Fischer - Last Filed: 05/27/19 17:41> Problem List (1) COPD Status: Chronic (2) prostate cancer Status: Chronic Comment: status post radiation (3) Sepsis due to Escherichia coli Status: Resolved (4) Alcoholism Status: Chronic (5) Hypoxia Status: Chronic (6) Tobacco abuse Status: Resolved (7) Urinary retention Status: Chronic (8) Non-small cell lung cancer (NSCLC) Status: Chronic Qualifiers: Laterality: right Qualified Code(s): C34.91 - Malignant neoplasm of unspecified part of right bronchus or lung (9) Pleural effusion on left Status: Chronic (10) Atelectasis of left lung Status: Chronic History of Present Illness Date of Admission: 05/27/19 Chief Complaint: Shortness of breath, abdominal fullness. The patient is a 83 year old M who presents from SNF due to shortness of breath which which began over the last day. He reports prior to this he has had abdominal bloating and constipation. He reports he took milk of magnesia and drank a glass of prune juice and had significant bowel movement. However, he reports he continues to have abdominal bloating and distention. Patient reports he has had multiple thoracentesis in the past secondary to pleural effusion. He reports shortness of breath is worse when he is lying flat. Denies productive cough. Denies fever, chills. Denies chest pain. He has a past medical history of chronic hypoxic respiratory failure wearing 2 L nasal cannula as needed, COPD, chronic left pleural effusion, history of non-small cell lung cancer, chronic urinary retention, history of prostate cancer, chronic diastolic CHF, chronic debility, history of alcohol and tobacco abuse, hypertension, hyperlipidemia, depression. Past Medical History Past Medical History (Chronic Problems): Chronic Problems (Last Reviewed 05/01/19 @ 13:28 by Miranda Lara) COPD (Chronic) prostate cancer (Chronic) status post radiation Alcoholism (Chronic) Hypoxia (Chronic) Urinary retention (Chronic) Non-small cell lung cancer (NSCLC) (Chronic) Pleural effusion on left (Chronic) Atelectasis of left lung (Chronic) Medical History: Medical History (Last Reviewed 05/01/19 @ 13:28 by Miranda Lara) Abnormal prostate biopsy R89.7 05/04/2006 CKD (chronic kidney disease) N18.9 COPD (chronic obstructive pulmonary disease) J44.9 GERD (gastroesophageal reflux disease) K21.9 H/O tooth extraction K08.409 x9 teeth 07/2018 H/O urinary retention Z87.898 History of E. 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 Allergies doxycycline Allergy (Verified 05/01/19 13:24) pt is unsure tetracycline Allergy (Verified 05/01/19 13:24) Rash venom-honey bee [bee venom (honey bee)] Allergy (Verified 05/01/19 13:24) Swelling Home Medications: Ambulatory Orders Medication Instructions Recorded Albuterol Aerosols [Ventolin 2.5 mg INHALATION Q4H PRN PRN 05/27/19 Aerosols] Atorvastatin Calcium 1 tab PO DAILY 05/27/19 Budesonide Aerosol [Pulmicort 1 inhaler INHALATION BID 05/27/19 Respules] Furosemide [Lasix] 40 mg PO BID 05/27/19 Glycopyrrolate/Formoterol Fum 2 puff INHALATION Q12H 05/27/19 [Bevespi Aerosphere Inhaler] Ipratropium/Albuterol Sulfate 3 ml INHALATION Q4H.RT 05/27/19 [Duoneb] L. Acidophilus/L.bulgaricus 1 ea PO DAILY 05/27/19 [Lactobacillus Tablet] Lisinopril 5 mg PO DAILY 05/27/19 Lutein Extract/Zeaxanthin Ext 1 ea PO TUFR 05/27/19 [Lutein 15 mg Softgel] Multivitamin [Daily Value] 1 ea PO DAILY 05/27/19 Pierce-3 Fatty Acids/Fish Oil [Fish 1 ea PO DAILY 05/27/19 Oil 1,000 mg Capsule] Ondansetron HCl [Zofran] 4 mg PO Q6H PRN 05/27/19 Ranitidine [Zantac] 75 mg PO DAILY 05/27/19 Sertraline HCl [Zoloft] 25 mg PO DAILY 05/27/19 Surgical History: no surgical history Psychiatric History: No pertinent psych hx Lives: Residential Smoking Status: Former smoker Alcohol: Sober Drugs: None - *Family History Paternal Family History: Family History (Last Reviewed 05/27/19 @ 17:13 by MARCY Neri) Father Brain cancer Mother Cervical cancer History Items: - - brain tumor Maternal Family History: Family History (Last Reviewed 05/27/19 @ 17:13 by MARCY Neri) Father Brain cancer Mother Cervical cancer History Items: Cancer - cervical, Hypertension Review of Systems Constitutional: Denies: Chills, Fever, Weight Change HEENT: Denies: Head Aches, Sinus Congestion, Sinus Drainage Cardiovascular: Denies: Chest Pain, Edema, Light Headedness, Palpitations, Syncope Respiratory: Reports: Cough, Shortness of Breath. Denies: Sputum production, Wheezing Gastrointestinal: Reports: Constipation, - - Abdominal bloating. Denies: Abdominal Pain, Diarrhea, Nausea, Vomiting Genitourinary: Reports: - - Chronic lal. Denies: Dysuria Musculoskeletal: Denies: Joint Pain, Joint Tenderness Skin: Denies: Rash, Wounds Neurological: Denies: Numbness, Tingling, Focal weakness Psychiatric: Reports: Depression. Denies: Anxiety, Homicidal Ideations, Suicidal Ideations Hematologic/ Lymphatic: Denies: Easy Bruising, Easy Bleeding VTE Information - Inpt Only VTE Present on Admission: No VTE Mechan Device Prophylaxis: None VTE Pharm Prophylaxis ordered?: Yes - Physical Exam General: Alert, Oriented x3, Cooperative HEENT: Atraumatic, PERRLA, EOMI, Normocephalic, - - [place] Neck: Supple, No JVD, Negative Carotid Bruits Lungs: Diminished, Rales Cardiovascular: Normal S1, Normal S2, No murmurs, - - Atrial fibrillation Abdomen: Bowel Sounds Present, Soft, Non Tender, Non-Distended, Obese, Hernia Extremities: No clubbing, No cyanosis, Capillary Refill Less than 3 Seconds, Edema - Nonpitting bilateral lower extremities Skin: No rashes, No breakdown Musculoskeletal: No Tenderness to Palpation of Joints or Extremities Neurological: Cranial nerves II-XII grossly intact, Neuro grossly intact Psych/Mental Status: Normal Affect, Appropriate Vital Signs Temp Pulse Resp BP Pulse Ox 97.8 F 76 17 123/63 H 97 05/27/19 10:47 05/27/19 15:54 05/27/19 15:54 05/27/19 15:54 05/27/19 15:54 Oxygen Flow Rate (L/min) 2 Oxygen Delivery Method Nasal Cannula Weight: 241 lb 2.971 oz Body Mass Index (BMI) 29.3 Finger Stick Blood Glucose 192 Laboratory Tests Past 24 Hrs 05/27/19 05/27/19 05/27/19 11:10 11:10 11:30 WBC 5.6 RBC 3.82 L Hgb 12.1 L Hct 34.8 L MCV 91.1 MCH 31.7 MCHC 34.8 RDW 13.4 RDW Differential 44.1 H Plt Count 286 MPV 8.1 Immature Gran % (Auto) 0.200 Neut % (Auto) 76.9 H Lymph % (Auto) 10.9 L Ramsey % (Auto) 10.0 Eos % (Auto) 1.8 Baso % (Auto) 0.2 Absolute Neuts (auto) 4.3 Absolute Lymphs (auto) 0.61 L Total Counted Not Reportable Sodium 130 L Potassium 4.3 Chloride 91 L Carbon Dioxide 33.0 H Anion Gap 6 BUN 20 H Creatinine 1.05 Estim Creat Clear Calc 67.74 Est GFR (MDRD) Af Amer 87 Est GFR (MDRD) Non-Af 72 BUN/Creatinine Ratio 19.0 Glucose 120 H Calcium 8.6 Total Bilirubin 0.30 AST 27 ALT 32 Alkaline Phosphatase 168 H Troponin I < 0.015 Total Protein 6.9 Albumin 2.4 L Globulin 4.5 H Albumin/Globulin Ratio 0.5 L Lipase 40 L Urine Color Yellow Urine Clarity Clear Urine pH 9.0 Ur Specific [place] 1.015 Urine Protein 15 H Urine Glucose (UA) Normal Urine Ketones Negative Urine Occult Blood 25 H Urine Nitrite Positive H Urine Bilirubin Negative Urine Urobilinogen Normal Ur Leukocyte Esterase 500 H Urine RBC 0 SEEN Urine WBC 10-25 SEEN Ur Squamous Epith Cells 0 SEEN Amorphous Sediment 2+ Urine Bacteria 1+ Urine Mucus 0 SEEN Assessment/Plan All Active Problems (Last Reviewed 05/01/19 @ 13:28 by Miranda Lara) Tobacco abuse (Resolved) Sepsis due to Escherichia coli (Resolved) 1. Dyspnea, chronic hypoxic respiratory failure secondary to chronic/recurrent pleural effusions-most recent thoracentesis February 2018 pleural fluid found to be exudative, cytology negative for malignancy. CT of chest on admission shows unchanged left loculated effusion compared to imaging March 2018, left lower lobe consolidation unchanged, left upper lobe consolidated regions unchanged, right upper lobe bandlike consolidation mildly progressed, right effusions loculated and upper and lower lung on the lateral pleural margin, new. Patient may require pleur-x catheter given recurrent thoracentesis. Consult pulmonary medicine. Patient follows with Dr. Mina. Continue supplement oxygen to maintain O2 at or above 90%. 2. Possible acute on chronic diastolic CHF- This may be contributing to #1 as well. Echocardiogram November 2015 showed an EF of 65 to 70%, stage I diastolic dysfunction. Repeat echo. 3. New onset atrial fibrillation-EKG in ED A. fib, rate 93. Trend enzymes. Check TSH, mag. Therapeutic Lovenox. Obtain echocardiogram. Begin beta-ximena metoprolol 25 mg twice daily. 4. Pericardial effusion-CT of chest noted pericardial effusion. Obtain echocardiogram as noted above. 5. Abdominal bloating/constipation-CT of abdomen pelvis on admission shows no acute abdominopelvic process. No evidence of bowel distention or inflammation. No ascites. Continue bowel regimen. 6. Acute UTI, history of recurrent UTIs due to chronic urinary retention with chronic Lal-history of prostate cancer as well. Urinalysis with 10-25 WBC, positive nitrate. Obtain urine culture. IV Rocephin. Prior urine cultures with multiple organisms including E. coli, Enterococcus faecalis, alcaligenes faecalis. 7. History of non-small cell right lung cancer-following with Dr. Teran. Completed radiation August 2018. 8. Chronic COPD-no acute exacerbation. As needed albuterol aerosol. 9. Hypertension-stable, continue home lisinopril regimen. 10. Hyperlipidemia-continue statin. 11. Chronic debility-mostly wheelchair-bound. Resides at SNF. PT/OT. 12. Depression-continue sertraline regimen. 13. History of alcohol and tobacco abuse-denies current use. Encouraged continued cessation. DVT prophylaxis-Lovenox subcu CODE STATUS: Paperwork from SNF completed at PCP office showed patient DNR CC. Discussed with patient to confirm this and he reports he was talked into this. Patient now requests to be full code and agreeable to chest compressions, intubation, etc. Will remain full code at this time. This patient was seen by MARCY Neri under the supervision of Dr. Horn. <Macie Horn - Last Filed: 05/27/19 17:55> History of Present Illness The patient is a 83 year old M [] Past Medical History Medical History: Medical History (Last Reviewed 05/01/19 @ 13:28 by Miranda Lara) Abnormal prostate biopsy R89.7 05/04/2006 CKD (chronic kidney disease) N18.9 COPD (chronic obstructive pulmonary disease) J44.9 GERD (gastroesophageal reflux disease) K21.9 H/O tooth extraction K08.409 x9 teeth 07/2018 H/O urinary retention Z87.898 History of E. 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 Allergies doxycycline Allergy (Verified 05/01/19 13:24) pt is unsure tetracycline Allergy (Verified 05/01/19 13:24) Rash venom-honey bee [bee venom (honey bee)] Allergy (Verified 05/01/19 13:24) Swelling - *Family History Paternal Family History: Family History (Last Reviewed 05/27/19 @ 17:13 by MARCY Neri) Father Brain cancer Mother Cervical cancer Maternal Family History: Family History (Last Reviewed 05/27/19 @ 17:13 by MARCY Neri) Father Brain cancer Mother Cervical cancer - Physical Exam Vital Signs Temp Pulse Resp BP Pulse Ox 97.8 F 76 17 123/63 H 97 05/27/19 10:47 05/27/19 15:54 05/27/19 15:54 05/27/19 15:54 05/27/19 15:54 Oxygen Flow Rate (L/min) 2 Oxygen Delivery Method Nasal Cannula Weight: 234 lb 12.8 oz Body Mass Index (BMI) 28.5 Finger Stick Blood Glucose 192 Laboratory Tests Past 24 Hrs 05/27/19 05/27/19 05/27/19 11:10 11:10 11:30 WBC 5.6 RBC 3.82 L Hgb 12.1 L Hct 34.8 L MCV 91.1 MCH 31.7 MCHC 34.8 RDW 13.4 RDW Differential 44.1 H Plt Count 286 MPV 8.1 Immature Gran % (Auto) 0.200 Neut % (Auto) 76.9 H Lymph % (Auto) 10.9 L Ramsey % (Auto) 10.0 Eos % (Auto) 1.8 Baso % (Auto) 0.2 Absolute Neuts (auto) 4.3 Absolute Lymphs (auto) 0.61 L Total Counted Not Reportable Sodium 130 L Potassium 4.3 Chloride 91 L Carbon Dioxide 33.0 H Anion Gap 6 BUN 20 H Creatinine 1.05 Estim Creat Clear Calc 67.74 Est GFR (MDRD) Af Amer 87 Est GFR (MDRD) Non-Af 72 BUN/Creatinine Ratio 19.0 Glucose 120 H Calcium 8.6 Total Bilirubin 0.30 AST 27 ALT 32 Alkaline Phosphatase 168 H Troponin I < 0.015 Total Protein 6.9 Albumin 2.4 L Globulin 4.5 H Albumin/Globulin Ratio 0.5 L Lipase 40 L Urine Color Yellow Urine Clarity Clear Urine pH 9.0 Ur Specific [place] 1.015 Urine Protein 15 H Urine Glucose (UA) Normal Urine Ketones Negative Urine Occult Blood 25 H Urine Nitrite Positive H Urine Bilirubin Negative Urine Urobilinogen Normal Ur Leukocyte Esterase 500 H Urine RBC 0 SEEN Urine WBC 10-25 SEEN Ur Squamous Epith Cells 0 SEEN Amorphous Sediment 2+ Urine Bacteria 1+ Urine Mucus 0 SEEN Assessment/Plan Patient seen by Jay VIDAL under my supervision Patient is an 83 y/o male with an extensive past medical history as listed. [facility] with a complaint of abdominal bloating and discomfort. He also complained of a 1 day history of shortness of breath. Patient has a history of recurrent pleural effusion which was initially consultative and then subsequently exudative but malignant pleural effusion was ruled out per cytology. He denied any fever or chills, cough, chest pain, palpitations, dizziness, diarrhea or vomiting. Review of systems was otherwise negative. On admission, vitals were stable and labs were essentially unremarkable apart from sodium of 130 which is chronically low and bicarb of 33. UA was positive for UTI. Chest x-ray showed left pleural effusion and left hilum as well as consolidation. CT scan of the chest showed a loculated left pleural effusion which is chronic and a new right-sided pleural effusion and new pericardial effusion. CT of the abdomen and pelvis was also unremarkable. He has been admitted to be managed for new onset right pleural effusion and acute hypoxic respiratory insufficiency due to pleural effusion as well as UTI. o/e: Vital Signs Height 6 ft 4 in Weight: 234 lb 12.8 oz Weight in Pounds 234.8 lbs BMI 30.4 Pulse Ox 97 Temperature 97.8 F Pulse Rate 76 Respiratory Rate 17 Blood Pressure 123/63 General: Alert, Oriented x3, Cooperative HEENT: Atraumatic, PERRLA, EOMI, Normocephalic, Neck: Supple, No JVD, Negative Carotid Bruits Lungs: Diminished, Rales Cardiovascular: Normal S1, Normal S2, No murmurs, - - Atrial fibrillation Abdomen: Bowel Sounds Present, Soft, Non Tender, Non-Distended, Obese, abdominal wall Hernia Extremities: No clubbing, No cyanosis, Capillary Refill Less than 3 Seconds, bilateral nonpitting 1+ Edema of LEs. Skin: No rashes, No breakdown Musculoskeletal: No Tenderness to Palpation of Joints or Extremities Neurological: Cranial nerves II-XII grossly intact, Neuro grossly intact Psych/Mental Status: Normal Affect, Appropriate Plan is to admit to PCU with telemetry. Continue oxygen and titrate to maintain saturation above 90%. Pulmonology consulted on account of new right-sided pleural effusion. Patient has undergone thoracentesis 3 times in the past and will likely need a Pleurx catheter at this time on account of recurrent pleural effusion. 2D echo ordered on account of pericardial effusion noted on the CT. Patient also noted to be in A. fib which is rate controlled. He does not have a history of A. fib. Will hold off on anti-Coblation for now on account of him likely needing thoracentesis tomorrow. 2D echo ordered and will start anticoagulation tomorrow after thoracentesis. Patient on IV Rocephin for UTI. Will continue. Urine culture ordered. Patient does have a history of non-small cell lung cancer and is status post radiation. However previous cytology of pleural effusion done was negative for malignancy. Patient counseled about CODE STATUS. Documentation from jail showed the patient was DNR CC. However patient states that he wants to be full code and is agreeable to chest compressions and intubation if needed. CODE STATUS is therefore full code. Total face to face counseling for code status- 16 mins Rest of management as per Jay Fischer PRODUCT EXPERT-C's note which I reviewed and endorsed. Code Visit Inpatient E&M: 71386 Init Hosp L3 Procedures: 23601 Advncd Care Plan 30 Min
--- NOTE | 2019-05-27 17:46 | ECHOCS_ITS ---
Reason For Study: Afib/Flutter Procedure This was a 2D Doppler, Color Flow transthoracic echocardiogram. The study was technically difficult. Contrast injection was performed. Exam performed portable in patient room. Left Ventricle Normal LV size. The estimated ejection fraction is 53 %. Unable to assess diastolic dysfunction due to arrhythmia. No regional wall motion abnormalities noted. Right Ventricle Normal RV size. Normal systolic function. Atria Normal left atrium. Normal right atrium. Mitral Valve Normal mitral valve. Tricuspid Valve Normal tricuspid valve. Mild (1+) tricuspid valve insufficiency. Pulmonary artery systolic pressure is 50 mmHg. Aortic Valve The aortic valve is not well visualized. Pulmonic Valve The pulmonic valve is not well visualized. Great Vessels Normal aortic root. The pulmonary artery is normal size. Normal inferior vena cava. Pericardium/Pleural No pericardial effusion. Small left pleural effusion. Medication Diluted definity 4ml given slow IV push to enhance endocardial definition. MMode/2D Measurements & Calculations LVIDd: 4.3 cm IVSd: 1.5 cm LA dimension: 3.6 cm LVIDs: 3.3 cm LVPWd: 1.3 cm FS: 23.0 % Time Measurements MV dec time: 0.18 sec Doppler Measurements & Calculations MV E max latoya: 78.3 cm/sec MV V2 max: 89.9 cm/sec MV P1/2t max latoya: 90.2 cm/sec MV A max latoya: 39.1 cm/sec MV max P.2 mmHg MV P1/2t: 58.0 msec MV E/A: 2.0 MV V2 mean: 38.8 cm/sec MV dec slope: 455.0 cm/sec2 MV mean P.81 mmHg MVA(P1/2t): 3.8 cm2 MV V2 VTI: 18.3 cm Ao V2 max: 82.4 cm/sec LV V1 max: 67.6 cm/sec PA V2 max: 65.4 cm/sec Ao max P.7 mmHg LV V1 max P.8 mmHg TR max latoya: 332.3 cm/sec TR max P.2 mmHg Interpretation Summary Normal LV size. The estimated ejection fraction is 53 %. Unable to assess diastolic dysfunction due to arrhythmia. Mild (1+) tricuspid valve insufficiency. Pulmonary artery systolic pressure is 50 mmHg. Contrast injection was performed. Ordering Physician: Faviola Fischer Referring Physician: Macie Horn Performed By: Skip Jefferson RCS
[2019-05-27 18:12] LABS: BNP,B-Type NATRIURETIC PEPTIDE 115.5 pg/mL (0-100)
[2019-05-27 18:25] LABS: Magnesium 1.9 mg/dL (1.6-2.6)
[2019-05-27 18:46] LABS: Thyroid Stim Hormone (TSH) 0.86 uIU/mL (0.358-3.74)
[2019-05-27] MEDS: Mag Hydrox/Al Hydrox/Simeth 30 ML UDC PO (22:20)
[2019-05-27] MEDS: Atorvastatin Calcium 10 MG Tablet PO (22:20)
[2019-05-27] MEDS: Furosemide 40 MG Tablet PO (22:20)
[2019-05-27] MEDS: Metoprolol Tartrate 25 MG Tablet PO (22:20)
[2019-05-28] VITALS (18 sets, daily range): BP systolic 80–126; BP diastolic 45–67; PULSE 64–99; RESP 16–21; TEMP 36.1–37.3; O2SAT 91–96
[2019-05-28] MEDS: oxyCODONE 5 MG Tablet PO (03:46)
[2019-05-28] MEDS: Magnesium Hydroxide 30 ML UDC PO (03:47)
[2019-05-28] MEDS: Albuterol 2.5 MG/3 ML VIAL.NEB. INHALATION (03:50)
--- NOTE | 2019-05-28 05:42 | PCM.PN.BLA ---
Progress Note Notified that patient's blood pressure is in the 90s; asymptomatic otherwise. Patient had received oxycodone for pain. He is on lisinopril; metoprolol and lasix. His heart rate is Will put parameters on lasix to hold for SBP < 90. Will cut down metoprolol from 25mg bid to 12.5mg and will place parameters to hold for SBP < 100. Hold Lisinopril for SBP < 100. Still in Afib but controlled. Ventricular rate is generally < 80.
[2019-05-28 06:11] LABS: Hematocrit 36.3 % (40-54); Hemoglobin 11.8 g/dl (13.0-16.5); Mean Corp Hgb Conc 32.5 g/gl (32-36); Mean Corpuscular Hgb 29.8 pg (27.0-32.0); Mean Corpuscular Volume 91.7 fL (80-94); Mean Platelet Vol. 7.7 fl (6.2-12.0); Platelet Count 356 K/mm3 (150-450); RBC Distribution Width CV 13.1 % (11.6-14.6); RBC Distribution Width SD 43.4 fl (35.1-43.9); Red Blood Count 3.96 M/mm3 (4.6-6.2); White Blood Count 5.2 K/mm3 (4.4-11.0)
[2019-05-28 06:28] LABS: Anion Gap 5 (5-15); BUN 20 mg/dL (7-18); Calcium,Total 8.8 mg/dL (8.5-10.1); Chloride 92 mmol/L (98-107); EST Glomerular Filtration Rate 76 mL/min (>60); Est Glom Filt Rate - Afr Amer 92 mL/min (>60); Estimated Creatinine Clearance 71.13 ml/min; Glucose 104 mg/dL (74-106); Potassium 4.7 mmol/L (3.5-5.1); Sodium Level 133 mmol/L (136-145)
[2019-05-28 06:31] LABS: Scan Indicated on CBC? Y/N NO
[2019-05-28] MEDS: Ipratropium/Albuterol Sulfate 3 ML AMPUL.NEB INHALATION ×4 (07:23→19:10)
[2019-05-28 08:28] LABS: Prothrombin Time (Protime)PT. 13.4 SECONDS (11.7-14.9)
--- NOTE | 2019-05-28 11:27 | CASEMGMT ---
As per admitting RN's assessment, pt does not have LW/POA and not interested in information at this time. FRANCISCO Kc
--- NOTE | 2019-05-28 11:41 | CASEMGMT ---
SW reviewed chart, pt is here from [facility]. SW called [facility], spoke w/Maggie. 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 They will try to skill pt, however they will take pt when medically ready and do not need to wait for precert. SW faxed over clinical information to Maggie at [facility]. SW will continue to follow for discharge back to [facility] when pt is ready. FRANCISCO Kc
[2019-05-28] MEDS: Polyethylene Glycol 3350 17 GM PACKET PO (11:59)
[2019-05-28] MEDS: Famotidine 20 MG Tablet PO (11:59)
[2019-05-28] MEDS: Sertraline 50 MG Tablet 25 MG PO (11:59)
[2019-05-28] MEDS: 0.9% NaCl Peripheral Flush Adult/Peds IV (12:00)
[2019-05-28] MEDS: Ceftriaxone 1 GM/50 ML BAG IV (12:03)
--- NOTE | 2019-05-28 13:27 | PCM.PN.HOSP ---
Subjective: Patient seen and examined. He had no complaints. Review of systems otherwise negative. He still is on 4 L of oxygen though he denies being short of breath. He denies any chest pain or palpitations or dizziness. Patient noted to be hypotensive during the night and so metoprolol dose was decreased. Vitals/I&O's: Vital Signs Temp Pulse Resp BP Pulse Ox 97 F L 81 18 99/65 95 05/28/19 08:20 05/28/19 11:11 05/28/19 11:11 05/28/19 08:20 05/28/19 09:22 Oxygen Flow Rate (L/min) 3 Oxygen Delivery Method Nasal Cannula Weight: 234 lb 9.149 oz Body Mass Index (BMI) 28.5 Finger Stick Blood Glucose 192 Intake and Output for Last 24 Hours 05/26/19 05/27/19 05/28/19 23:59 23:59 23:59 Intake Total 240 / 720 850 / 850 Output Total 1100 / 1100 Balance 240 / 220 -250 / -250 General: Alert, Oriented x3, Cooperative HEENT: Atraumatic, PERRLA, EOMI, Normocephalic, Neck: Supple, No JVD, Negative Carotid Bruits Lungs: Diminished breath sounds bibasally, no wheeze or crackles. on 4L of oxygen Cardiovascular: Normal S1, Normal S2, No murmurs, - - Atrial fibrillation Abdomen: Bowel Sounds Present, Soft, Non Tender, Non-Distended, Obese, abdominal wall Hernia Extremities: No clubbing, No cyanosis, Capillary Refill Less than 3 Seconds, bilateral nonpitting 1+ Edema of LEs. Skin: No rashes, No breakdown Musculoskeletal: No Tenderness to Palpation of Joints or Extremities Neurological: Cranial nerves II-XII grossly intact, Neuro grossly intact Psych/Mental Status: Normal Affect, Appropriate Laboratory Results 05/27/19 11:10: B-Natriuretic Peptide 115.5 H 05/27/19 11:10: TSH 0.86 05/27/19 11:10: Magnesium 1.9 05/27/19 19:20: Troponin I 0.020 05/27/19 21:46: Troponin I 0.027 05/28/19 00:13: Troponin I 0.032 05/28/19 05:50: WBC 5.2, RBC 3.96 L, Hgb 11.8 L, Hct 36.3 L, MCV 91.7, MCH 29.8, MCHC 32.5, RDW 13.1, RDW Differential 43.4, Plt Count 356, MPV 7.7 05/28/19 05:50: Sodium 133 L, Potassium 4.7, Chloride 92 L, Carbon Dioxide 36.0 H, Anion Gap 5, BUN 20 H, Creatinine 1.00, Estim Creat Clear Calc 71.13, Est GFR (MDRD) Af Amer 92, Est GFR (MDRD) Non-Af 76, BUN/Creatinine Ratio 20.0, Glucose 104, Calcium 8.8 05/28/19 05:50: PT 13.4, INR 1.0 Diagnostic Data Abdomen/Pelvis CT 05/27/19 11:09 IMPRESSION: 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 Stable benign renal cysts bilaterally. Pancreatic atrophy. No acute abdominopelvic process is evident. There is no evidence of bowel distention or inflammation. There is no ascites. There are no specific features of cirrhosis. Electronically Signed: Byron Alejandre MD at 15:38 EDT Tel , Service support , Chest X-Ray 05/27/19 11:09 IMPRESSION: Moderate left pleural effusion, increased since the previous study. Possible left hilar mass/consolidation. Stable right parahilar infiltrate. Correlation with CT if needed. Electronically Signed: Aman Ortega DO at 12:52 EDT Tel [phone], Service support , Chest CTA 05/27/19 13:37 IMPRESSION: Compared to imaging of March 2019, loculated left effusion unchanged, left lower lobe subsegmental region of dense consolidation unchanged, left upper lobe consolidated regions unchanged. Right upper lobe bandlike consolidation mildly progressed. Right effusions loculated and the upper and lower lung on the lateral pleural margin, new. Pericardial effusion new. Right hilar lymph node increased in size. Electronically Signed: Byron Alejandre MD at 15:23 EDT Tel , Service support , Current Medications Acetaminophen (Tylenol) 650 mg PO Q6H PRN PRN PRN Reason: Mild pain 1-3/Temp > 100.7 F Al Hydroxide/Mg Hydroxide (Mylanta Ii) 30 ml PO Q6H PRN PRN PRN Reason: Gastric Burning Last Admin: 05/27/19 22:20 Dose: 30 ml Documented by: Albuterol Sulfate (Ventolin Aerosols) 2.5 mg INHALATION Q2H PRN PRN PRN Reason: SHORTNESS OF BREATH Last Admin: 05/28/19 03:50 Dose: 2.5 mg Documented by: Albuterol/Ipratropium (Duoneb) 3 ml INHALATION Q4HWA.RT [facility] Last Admin: 05/28/19 10:41 Dose: 3 ml Documented by: Atorvastatin Calcium (Lipitor) 10 mg PO QHS [facility] Last Admin: 05/27/19 22:20 Dose: 10 mg Documented by: Docusate Sodium (Colace) 100 mg PO BID PRN PRN PRN Reason: Constipation Famotidine (Pepcid) 20 mg PO DAILY [facility] Last Admin: 05/28/19 11:59 Dose: 20 mg Documented by: Ceftriaxone Sodium (Rocephin) 1 gm in 50 mls @ 100 mls/hr IV Q24 [facility] Last Admin: 05/28/19 12:03 Dose: 100 mls/hr Documented by: Magnesium Hydroxide (Milk Of Magnesia) 30 ml PO DAILY PRN PRN PRN Reason: Constipation Last Admin: 05/28/19 03:47 Dose: 30 ml Documented by: Ondansetron HCl (Zofran) 4 mg IV Q8H PRN PRN PRN Reason: NAUSEA/VOMITING Oxycodone HCl (Oxyir) 5 mg PO Q6H PRN PRN PRN Reason: Moderate Pain (4-6/10) Last Admin: 05/28/19 03:46 Dose: 5 mg Documented by: Polyethylene Glycol (Miralax) 17 gm PO DAILY [facility] Last Admin: 05/28/19 11:59 Dose: 17 gm Documented by: Sertraline HCl (Zoloft) 25 mg PO DAILY [facility] Last Admin: 05/28/19 11:59 Dose: 25 mg Documented by: Sodium Chloride () 10 - 40 ml IV UD PRN PRN Reason: SALINE FLUSH Last Admin: 05/28/19 12:00 Dose: 10 ml Documented by: Medical Necessity - Tobacco Use Smoking Status: Former smoker Assessment/Plan All Active Problems (Last Reviewed 05/01/19 @ 13:28 by Miranda Lara) Tobacco abuse (Resolved) Sepsis due to Escherichia coli (Resolved) 1. Acute hypoxic respiratory insufficiency due to bilateral pleural effusions still on 4L of oxygen Chest CDT showed unchanged left loculated effusion, and new right sided loculated effusions, with unchanged left upper and lower lobe lung consolidation has no complaints pulmonology on board for thoracentesis tomorrow by radiology may benefit from pleurex catheter o/a of recurrent pleural effusions requiring thoracentesis 2.Acute on chronic diastolic CHF BNP was only mildly elevated at 115 on lasix 2D echo pending Chest CT showed pericardial effusion; will await echo confirmation 3. New onset Afib: rate controlled. started on metoprolol, but dose was reduced due overnight o/a of hypotension. anticoagulation on hold for now since he is having therapeutic thoracentesis tomorrow. BP meds held o/a of hypotension as BP was in 80s systolic this morning 2D echo pending 4. History of right nonsmall cell lung cancer: s/p radiation . Follows with Dr Teran 5. Acute UTI: on IV rocephin. Urine cultures pending 6. Hypertension: lisinopril held o/a of hypotension this morning. 7. Hyperlipidemia: continue statin 8. Chronic debility: PT/OT on board. Mobilises with wheelchair 9. Depression: on sertraline DVT prophylaxis; lovenox Code Visit Inpatient E&M: 26948 Subs Hosp L3
--- NOTE | 2019-05-28 14:34 | CON.PCM_ITS ---
Problem List (1) COPD Status: Chronic (2) Hypoxia Status: Chronic (3) Urinary retention Status: Chronic (4) Non-small cell lung cancer (NSCLC) Status: Chronic Qualifiers: Laterality: right Qualified Code(s): C34.91 - Malignant neoplasm of unspecified part of right bronchus or lung (5) Pleural effusion on left Status: Chronic (6) Atelectasis of left lung Status: Chronic Reason for Consult Date of Consultation: 05/28/19 Reason for Consultation: Recurrent pleural effusion History of Present Illness: The patient is a 83 year old M, with past medical history listed below, who presented to [facility] at on 05/27/2019 secondary to severe abdominal pain and bloating. Patient had reported going into a coughing fit and feeling short of breath, so was sent to the emergency room for evaluation. Patient reportedly uses 2 L nasal cannula at baseline and reports that he has had 3 thoracentesis procedures in the last 6 months. None of these have been diagnostic per his report. In the emergency room, patient did not have any significant leukocytosis, but did have thrombocytopenia at 86. Patient had a positive UA and chest x-ray showed a left effusion. CT scan of the chest showed a loculated left pleural effusion right perihilar infiltrate and new pericardial effusion. Patient was also reported to have increased adenopathy. Patient was placed on IV antibiotics and admitted to the floor for further evaluation. Since being admitted to the floor, patient has remained on 2 to 3 L nasal cannula oxygen. Patient denies any abdominal pain, but does report abdominal bloating. Patient states that he does have a large abdominal wall hernia that he subjectively feels is worse compared to previous. Patient does report significant shortness of breath associated with paroxysmal type coughing. Patient is not reporting any shortness of breath, chest pain, palpitations or dizziness at rest. Patient has had his metoprolol dose decreased secondary to some hypotension. Review of systems otherwise negative x10 systems Past Medical History Past Medical History (Chronic Problems): Chronic Problems (Last Reviewed 05/01/19 @ 13:28 by Miranda Lara) COPD (Chronic) prostate cancer (Chronic) status post radiation Alcoholism (Chronic) Hypoxia (Chronic) Urinary retention (Chronic) Non-small cell lung cancer (NSCLC) (Chronic) Pleural effusion on left (Chronic) Atelectasis of left lung (Chronic) Medical History: Medical History (Last Reviewed 05/01/19 @ 13:28 by Miranda Lara) Abnormal prostate biopsy R89.7 05/04/2006 CKD (chronic kidney disease) N18.9 COPD (chronic obstructive pulmonary disease) J44.9 GERD (gastroesophageal reflux disease) K21.9 H/O tooth extraction K08.409 x9 teeth 07/2018 H/O urinary retention Z87.898 History of E. 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 Allergies doxycycline Allergy (Verified 05/01/19 13:24) pt is unsure tetracycline Allergy (Verified 05/01/19 13:24) Rash venom-honey bee [bee venom (honey bee)] Allergy (Verified 05/01/19 13:24) Swelling Home Medications: Ambulatory Orders Medication Instructions Recorded Albuterol Aerosols [Ventolin 2.5 mg INHALATION Q4H PRN PRN 05/27/19 Aerosols] Atorvastatin Calcium 1 tab PO DAILY 05/27/19 Budesonide Aerosol [Pulmicort 1 inhaler INHALATION BID 05/27/19 Respules] Furosemide [Lasix] 40 mg PO BID 05/27/19 Glycopyrrolate/Formoterol Fum 2 puff INHALATION Q12H 05/27/19 [Bevespi Aerosphere Inhaler] Ipratropium/Albuterol Sulfate 3 ml INHALATION Q4H.RT 05/27/19 [Duoneb] L. Acidophilus/L.bulgaricus 1 ea PO DAILY 05/27/19 [Lactobacillus Tablet] Lisinopril 5 mg PO DAILY 05/27/19 Lutein Extract/Zeaxanthin Ext 1 ea PO TUFR 05/27/19 [Lutein 15 mg Softgel] Multivitamin [Daily Value] 1 ea PO DAILY 05/27/19 [place]-3 Fatty Acids/Fish Oil [Fish 1 ea PO DAILY 05/27/19 Oil 1,000 mg Capsule] Ondansetron HCl [Zofran] 4 mg PO Q6H PRN 05/27/19 Ranitidine [Zantac] 75 mg PO DAILY 05/27/19 Sertraline HCl [Zoloft] 25 mg PO DAILY 05/27/19 Surgical History: no surgical history Psychiatric History: No pertinent psych hx Lives: Snf Smoking Status: Former smoker Alcohol: Sober Drugs: None - *Family History Paternal Family History: Family History (Last Reviewed 05/27/19 @ 17:13 by MARCY Neri) Father Brain cancer Mother Cervical cancer History Items: - - brain tumor Maternal Family History: Family History (Last Reviewed 05/27/19 @ 17:13 by MARCY Neri) Father Brain cancer Mother Cervical cancer History Items: Cancer - cervical, Hypertension Review of Systems Comment: See HPI Objective: All imaging was personally reviewed. Agree with formal interpretation. Evaluation of mediastinal adenopathy is difficult on testing. - Physical Exam General: Alert, Oriented x3, Cooperative, No apparent distress, - - Appears older than stated age. No conversational dyspnea noted. HEENT: Atraumatic, PERRLA, EOMI, Normocephalic, - - Slight scleral injection without icterus Oral: Moist Mucosa, No Gingival or Mucosal Lesions/ Ulcerations Neck: Supple, No Nodes, Trachea Midline, JVD, Right Lungs: No rhonchi, No wheeze, No rales, Diminished, - - Dullness to percussion at the left base Cardiovascular: Normal S1, Normal S2, No murmurs, Irregular Rate, No rub noted, No Gallop Abdomen: Bowel Sounds Present, Soft, Non Tender, Non-Distended, Hernia - Readily reducible Extremities: No cyanosis, No edema, Capillary Refill Less than 3 Seconds, Clubbing Skin: No rashes, No breakdown Musculoskeletal: No Tenderness to Palpation of Joints or Extremities Lymphatic: No Cervical, Supraclavicular, or Inguinal Adenopathy Neurological: Cranial nerves II-XII grossly intact, Neuro grossly intact, Motor Exam 5/5 strength throughout Psych/Mental Status: Alert and oriented to time, place, person, mood and affect Vital Signs Temp Pulse Resp BP Pulse Ox 36.1 C L 81 18 99/65 95 05/28/19 08:20 05/28/19 11:11 05/28/19 11:11 05/28/19 08:20 05/28/19 09:22 Oxygen Flow Rate (L/min) 3 Oxygen Delivery Method Nasal Cannula Weight: 106.4 kg Body Mass Index (BMI) 28.5 Finger Stick Blood Glucose 192 Intake and Output for Last 24 Hours 05/26/19 05/27/19 05/28/19 23:59 23:59 23:59 Intake Total 240 / 720 850 / 850 Output Total 1100 / 1100 Balance 240 / 220 -250 / -250 Laboratory Tests Past 24 Hrs 05/27/19 05/27/19 05/27/19 11:10 11:10 11:10 WBC RBC Hgb Hct MCV MCH MCHC RDW RDW Differential Plt Count MPV PT INR Sodium Potassium Chloride Carbon Dioxide Anion Gap BUN Creatinine Estim Creat Clear Calc Est GFR (MDRD) Af Amer Est GFR (MDRD) Non-Af BUN/Creatinine Ratio Glucose Calcium Magnesium 1.9 Troponin I B-Natriuretic Peptide 115.5 H TSH 0.86 05/27/19 05/27/19 05/28/19 19:20 21:46 00:13 WBC RBC Hgb Hct MCV MCH MCHC RDW RDW Differential Plt Count MPV PT INR Sodium Potassium Chloride Carbon Dioxide Anion Gap BUN Creatinine Estim Creat Clear Calc Est GFR (MDRD) Af Amer Est GFR (MDRD) Non-Af BUN/Creatinine Ratio Glucose Calcium Magnesium Troponin I 0.020 0.027 0.032 B-Natriuretic Peptide TSH 05/28/19 05/28/19 05/28/19 05:50 05:50 05:50 WBC 5.2 RBC 3.96 L Hgb 11.8 L Hct 36.3 L MCV 91.7 MCH 29.8 MCHC 32.5 RDW 13.1 RDW Differential 43.4 Plt Count 356 MPV 7.7 PT 13.4 INR 1.0 Sodium 133 L Potassium 4.7 Chloride 92 L Carbon Dioxide 36.0 H Anion Gap 5 BUN 20 H Creatinine 1.00 Estim Creat Clear Calc 71.13 Est GFR (MDRD) Af Amer 92 Est GFR (MDRD) Non-Af 76 BUN/Creatinine Ratio 20.0 Glucose 104 Calcium 8.8 Magnesium Troponin I B-Natriuretic Peptide TSH Clinical Impression(s) from Imaging Studies Abdomen/Pelvis CT 05/27/19 11:09 IMPRESSION: 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 Stable benign renal cysts bilaterally. Pancreatic atrophy. No acute abdominopelvic process is evident. There is no evidence of bowel distention or inflammation. There is no ascites. There are no specific features of cirrhosis. Electronically Signed: Byron Alejandre MD at 15:38 EDT Tel , Service support , Chest CTA 05/27/19 13:37 IMPRESSION: Compared to imaging of March 2019, loculated left effusion unchanged, left lower lobe subsegmental region of dense consolidation unchanged, left upper lobe consolidated regions unchanged. Right upper lobe bandlike consolidation mildly progressed. Right effusions loculated and the upper and lower lung on the lateral pleural margin, new. Pericardial effusion new. Right hilar lymph node increased in size. Electronically Signed: Byron Alejandre MD at 15:23 EDT Tel , Service support , Assessment/Plan All Active Problems (Last Reviewed 05/01/19 @ 13:28 by Miranda Lara) Tobacco abuse (Resolved) Sepsis due to Escherichia coli (Resolved) RECOMMENDATIONS: 1. Wean oxygen as tolerated 2. Consider diuretic therapy in addition to thoracentesis 3. Walking oximetry prior to discharge 4. Possible patient PET scan IMPRESSIONS: 1. Acute hypoxic respiratory insufficiency Likely multifactorial etiology. Patient has had loculated effusions noted for several months. Patient did receive radiation therapy, so an element of radiation pneumonitis would be expected. Patient also has an underlying diagnosis of COPD. Patient does not have any fevers, chills, leukocytosis or productive cough to suggest an empyema or parapneumonic effusion. Patient has had multiple thoracentesis in the past that have come back as exudate. Patient does have a history of prostate and non-small cell lung cancer, so recurrence would be a consideration. Would defer to oncology, but PET scan may be appropriate for evaluation. 2. Acute on chronic diastolic congestive heart failure exacerbated by new onset A. fib Rate is currently controlled. Patient does appear to have an acute UTI, which may be increasing sympathetic tone. BNP was only mildly elevated. Would consider Lasix therapy given patient's reported lower extremity edema and new pericardial effusion. 3. Hypertension/hyperlipidemia/chronic debility/advanced stage/non-small cell lung cancer status post radiation/history of prostate cancer/depression Complicates care, management, recovery and prognosis. Likely okay to continue with baseline medications. Patient is on antibiotics for presumed UTI. However, patient does not have leukocytosis or other indications of systemic sepsis. Code Visit Inpatient E&M: 19108 Init Hosp L3
[2019-05-28] MEDS: Atorvastatin Calcium 10 MG Tablet PO (21:19)
[2019-05-29] VITALS (19 sets, daily range): BP systolic 94–159; BP diastolic 49–102; PULSE 74–108; RESP 18–20; TEMP 36.6–37; O2SAT 88–98
[2019-05-29] MEDS: Mag Hydrox/Al Hydrox/Simeth 30 ML UDC PO ×3 (07:32→22:14)
[2019-05-29] MEDS: Ipratropium/Albuterol Sulfate 3 ML AMPUL.NEB INHALATION ×4 (07:40→19:32)
--- NOTE | 2019-05-29 07:59 | US_ITS ---
PROCEDURE: ULTRASOUND GUIDED THORACENTESIS. DATE: May 29, 2019. INDICATION: Male, 83 years old. Left pleural effusion. PHYSICIAN: Momo Burns M.D. PROCEDURE: The risks, benefits, and alternatives to the procedure were explained to the patient. The specific risks of bleeding, infection, and pneumothorax requiring chest tube insertion were discussed and accepted. Written informed consent was obtained. Ultrasonographic evaluation of the left lower pleural space was carried out. An adequate pocket was identified. The patient was placed in the sitting, upright position. The overlying skin was prepped and draped in sterile fashion. 1% lidocaine was administered subcutaneously for local anesthesia. Under ultrasound guidance, a 5 Irish thoracentesis needle/catheter system was advanced into the left posterior lower pleural fluid collection. Approximately 500 mL of lucía-colored fluid was drained. The catheter was removed, and a sterile dressing was applied. The patient tolerated the procedure well. A chest x-ray was ordered. US/Thoracentesis W US IMPRESSION: Ultrasound-guided left thoracentesis. Electronically Signed: Momo Burns, at 9:44 EDT , Service support ,
[2019-05-29 08:52] LABS: Absolute Lymphocyte Count 0.67 X10^3/ul (0.83-4.51); Absolute Neutrophil Count 5.4 X10^3/uL (2.0-7.7); Basophil# 0.01 X10^3/uL; Basophil% 0.1 % (0-1); Eosinophil# 0.07 X10^3/uL; Hematocrit 37.3 % (40-54); Hemoglobin 12.1 g/dl (13.0-16.5); Lymphocyte # 0.67 X10^3/ul (4.0); Lymphocyte % 9.8 % (19-41); Mean Corp Hgb Conc 32.4 g/gl (32-36); Mean Corpuscular Hgb 29.9 pg (27.0-32.0); Mean Corpuscular Volume 92.1 fL (80-94); Mean Platelet Vol. 8.1 fl (6.2-12.0); Monocyte# 0.66 X10^3/uL; Monocyte% 9.7 % (0-10); Neutrophil % 79.1 % (47-70); Platelet Count 305 K/mm3 (150-450); RBC Distribution Width CV 13.5 % (11.6-14.6); Red Blood Count 4.05 M/mm3 (4.6-6.2); White Blood Count 6.8 K/mm3 (4.4-11.0)
[2019-05-29 08:57] LABS: POSITIVE COUNT NO; POSITIVE DIFFERENTIAL NO; POSITIVE MORPHOLOGY NO
[2019-05-29 09:11] LABS: International Normalized Ratio 1.1; Prothrombin Time (Protime)PT. 13.5 SECONDS (11.7-14.9)
[2019-05-29 09:12] LABS: Partial Thromboplast Time 36.7 Seconds (24.1-36.2)
[2019-05-29 09:20] LABS: Anion Gap 4 (5-15); BUN 18 mg/dL (7-18); BUN/Creat Ratio 21.3 RATIO (10-20); Calcium,Total 8.7 mg/dL (8.5-10.1); Chloride 93 mmol/L (98-107); Creatinine, Serum 0.84 mg/dL (0.70-1.30); EST Glomerular Filtration Rate 92 mL/min (>60); Est Glom Filt Rate - Afr Amer 112 mL/min (>60); Estimated Creatinine Clearance 84.68 ml/min; Glucose 112 mg/dL (74-106); Potassium 4.6 mmol/L (3.5-5.1); Sodium Level 130 mmol/L (136-145)
--- NOTE | 2019-05-29 09:20 | RAD_ITS ---
STUDY: X-RAY CHEST REASON FOR EXAM: Male, 83 years old. Status post left thoracentesis. TECHNIQUE: AP inspiration and expiration views. COMPARISON: Comparison is made with prior study dated May 27, 2019. FINDINGS: EKG electrodes are seen. The patient is status post left thoracentesis. Residual pleural-parenchymal changes are seen. There is no evidence of pneumothorax. RAD/Chest Insp/Exp 2 View IMPRESSION: Status post left thoracentesis. There is no evidence of pneumothorax. Electronically Signed: Momo Burns, at 9:43 EDT , Service support ,
--- NOTE | 2019-05-29 09:33 | PN_ITS ---
Subjective: Patient did okay overnight. Patient has had multiple bowel movements reported that he attributes to the use of MiraLAX. Patient has reported some shortness of breath associated with bowel movements, but otherwise feels at baseline. Patient is also reporting abdominal distention and gas pains. - Physical Exam General: Alert, Oriented x3, Cooperative, No apparent distress, Well developed, Well nourished, - - Appears older than stated age. HEENT: Atraumatic, PERRLA, EOMI, Normocephalic, - - No scleral icterus or injection noted. Oral: Moist Mucosa, No Gingival or Mucosal Lesions/ Ulcerations Neck: Supple, No JVD, No Nodes, Trachea Midline Lungs: No rhonchi, No wheeze, Diminished, Wheezes Cardiovascular: Regular rate, Regular Rhythm, Normal S1, Normal S2, No murmurs, No rub noted, No Gallop Abdomen: Bowel Sounds Present, Soft, Non Tender, Distended, - - No rebound or guarding appreciated Extremities: No cyanosis, Capillary Refill Less than 3 Seconds, Clubbing, Edema Skin: - - No significant change compared to previous Musculoskeletal: No Tenderness to Palpation of Joints or Extremities Lymphatic: No Cervical, Supraclavicular, or Inguinal Adenopathy Neurological: Cranial nerves II-XII grossly intact, Neuro grossly intact, Motor Exam 5/5 strength throughout Psych/Mental Status: Alert and oriented to time, place, person, mood and affect Vital Signs Temp Pulse Resp BP Pulse Ox 36.6 C 95 18 119/65 93 05/29/19 04:15 05/29/19 09:11 05/29/19 09:11 05/29/19 09:11 05/29/19 07:50 Oxygen Flow Rate (L/min) [2] 2 Oxygen Flow Rate (L/min) [1 ( 2 Initial Baseline)] Oxygen Flow Rate (L/min) 3 Oxygen Delivery Method [3] Nasal Cannula Oxygen Delivery Method [2] Nasal Cannula Oxygen Delivery Method [1 ( Nasal Cannula Initial Baseline)] Oxygen Delivery Method Nasal Cannula Weight: 108.2 kg Body Mass Index (BMI) 28.5 Finger Stick Blood Glucose 192 Intake and Output for Last 24 Hours 05/27/19 05/28/19 05/29/19 23:59 23:59 23:59 Intake Total 240 / 720 1090 / 1210 180 / 180 Output Total 1300 / 1475 550 / 550 Balance 240 / 220 -210 / -265 -370 / -370 Microbiology Past 72 Hours 05/27/19 11:10 Urine Culture - Preliminary Urine Catheter - [place] Gram negative anton Gram negative anton#2 Gram positive organism Laboratory Tests Past 24 Hrs 05/29/19 05/29/19 05/29/19 08:20 08:20 08:20 WBC 6.8 RBC 4.05 L Hgb 12.1 L Hct 37.3 L MCV 92.1 MCH 29.9 MCHC 32.4 RDW 13.5 RDW Differential 45.0 H Plt Count 305 MPV 8.1 Immature Gran % (Auto) 0.300 Neut % (Auto) 79.1 H Lymph % (Auto) 9.8 L [place] % (Auto) 9.7 Eos % (Auto) 1.0 Baso % (Auto) 0.1 Absolute Neuts (auto) 5.4 Absolute Lymphs (auto) 0.67 L Total Counted Not Reportable PT 13.5 INR 1.1 APTT 36.7 H Sodium 130 L Potassium 4.6 Chloride 93 L Carbon Dioxide 33.0 H Anion Gap 4 L BUN 18 Creatinine 0.84 Estim Creat Clear Calc 84.68 Est GFR (MDRD) Af Amer 112 Est GFR (MDRD) Non-Af 92 BUN/Creatinine Ratio 21.3 H Glucose 112 H Calcium 8.7 Medical Necessity - Tobacco Use Smoking Status: Former smoker Assessment/Plan All Active Problems (Last Reviewed 05/01/19 @ 13:28 by Miranda Lara) Tobacco abuse (Resolved) Sepsis due to Escherichia coli (Resolved) RECOMMENDATIONS: 1. Wean oxygen as tolerated 2. Consider diuretic therapy in addition to thoracentesis 3. Walking oximetry prior to discharge 4. Possible patient PET scan 5. Add cytology to thoracentesis IMPRESSIONS: 1. Acute hypoxic respiratory insufficiency secondary to severe sepsis secondary to UTI Likely multifactorial etiology. Patient has had loculated effusions noted for several months. Patient did receive radiation therapy, so an element of radiation pneumonitis would be expected. Patient also has an underlying diagnosis of COPD. Patient does not have any fevers, chills, leukocytosis or productive cough to suggest an empyema or parapneumonic effusion. Patient does have a UTI at this time. Patient has had multiple thoracentesis procedures in the past that have come back as exudate, so if this is repeated, cytology should be obtained. Patient does have a history of prostate and non-small cell lung cancer, so recurrence would be a consideration. Would defer to oncology, but PET scan may be appropriate for evaluation. Patient currently on baseline oxygen therapy. Dyspnea may be secondary to increased metabolic demand in the setting of UTI. 2. Acute on chronic diastolic congestive heart failure exacerbated by new onset A. fib Rate is currently controlled. Patient does appear to have an acute UTI, which may be increasing sympathetic tone. BNP was only mildly elevated. Would consider Lasix therapy given patient's reported lower extremity edema and new pericardial effusion. 3. Hypertension/hyperlipidemia/chronic debility/advanced stage/non-small cell lung cancer status post radiation/history of prostate cancer/depression Complicates care, management, recovery and prognosis. Likely okay to continue with baseline medications. Patient is on antibiotics for presumed UTI. However, patient does not have leukocytosis or other indications of systemic sepsis. Code Visit Inpatient E&M: 30232 Subs Hosp L2
[2019-05-29] MEDS: Ceftriaxone 1 GM/50 ML BAG IV (10:09)
[2019-05-29] MEDS: Sertraline 50 MG Tablet 25 MG PO (10:10)
[2019-05-29] MEDS: Famotidine 20 MG Tablet PO (10:10)
--- NOTE | 2019-05-29 13:08 | PN_ITS ---
Subjective: Patient seen and examined. He has no complaints this morning. He still does complain of some shortness of breath and abdominal distention. He states he feels bloated. Review of systems otherwise negative. Labs and vitals reviewed. He is for thoracentesis today. Vitals/I&O's: Vital Signs Temp Pulse Resp BP Pulse Ox 98.6 F 97 20 H 97/65 98 05/29/19 10:10 05/29/19 11:00 05/29/19 10:10 05/29/19 10:10 05/29/19 10:10 Oxygen Flow Rate (L/min) [2] 2 Oxygen Flow Rate (L/min) [1 ( 2 Initial Baseline)] Oxygen Flow Rate (L/min) 4 Oxygen Delivery Method [3] Nasal Cannula Oxygen Delivery Method [2] Nasal Cannula Oxygen Delivery Method [1 ( Nasal Cannula Initial Baseline)] Oxygen Delivery Method Nasal Cannula Weight: 238 lb 8.642 oz Body Mass Index (BMI) 28.5 Finger Stick Blood Glucose 192 Intake and Output for Last 24 Hours 05/27/19 05/28/19 05/29/19 23:59 23:59 23:59 Intake Total 240 / 720 1090 / 1210 540 / 540 Output Total 1300 / 1475 850 / 850 Balance 240 / 220 -210 / -265 -310 / -310 General: Alert, Oriented x3, Cooperative HEENT: Atraumatic, PERRLA, EOMI, Normocephalic, Neck: Supple, No JVD, Negative Carotid Bruits Lungs: Diminished breath sounds bibasally, no wheeze or crackles. on 4L of oxygen Cardiovascular: Normal S1, Normal S2, No murmurs, - - Atrial fibrillation, rate controlled Abdomen: Bowel Sounds Present, Soft, Non Tender, mild abdominal distension, Obese, abdominal wall Hernia Extremities: No clubbing, No cyanosis, Capillary Refill Less than 3 Seconds, bilateral nonpitting 1+ Edema of LEs. Skin: No rashes, No breakdown Musculoskeletal: No Tenderness to Palpation of Joints or Extremities Neurological: Cranial nerves II-XII grossly intact, Neuro grossly intact Psych/Mental Status: Normal Affect, Appropriate Microbiology Past 72 Hours 05/27/19 11:10 Urine Catheter - [facility] Urine Culture - Preliminary Gram negative anton Gram negative anton#2 Gram positive organism Laboratory Results 05/29/19 08:20: PT 13.5, INR 1.1, APTT 36.7 H 05/29/19 08:20: WBC 6.8, RBC 4.05 L, Hgb 12.1 L, Hct 37.3 L, MCV 92.1, MCH 29.9, MCHC 32.4, RDW 13.5, RDW Differential 45.0 H, Plt Count 305, MPV 8.1, Immature Gran % (Auto) 0.300, Neut % (Auto) 79.1 H, Lymph % (Auto) 9.8 L, [place] % (Auto) 9.7, Eos % (Auto) 1.0, Baso % (Auto) 0.1, Absolute Neuts (auto) 5.4, Absolute Lymphs (auto) 0.67 L, Total Counted Not Reportable 05/29/19 08:20: Sodium 130 L, Potassium 4.6, Chloride 93 L, Carbon Dioxide 33.0 H, Anion Gap 4 L, BUN 18, Creatinine 0.84, Estim Creat Clear Calc 84.68, Est GFR (MDRD) Af Amer 112, Est GFR (MDRD) Non-Af 92, BUN/Creatinine Ratio 21.3 H, Glucose 112 H, Calcium 8.7 Diagnostic Data Abdomen/Pelvis CT 05/27/19 11:09 IMPRESSION: 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 Stable benign renal cysts bilaterally. Pancreatic atrophy. No acute abdominopelvic process is evident. There is no evidence of bowel distention or inflammation. There is no ascites. There are no specific features of cirrhosis. Electronically Signed: Byron Alejandre MD at 15:38 EDT Tel , Service support , Chest CTA 05/27/19 13:37 IMPRESSION: Compared to imaging of March 2019, loculated left effusion unchanged, left lower lobe subsegmental region of dense consolidation unchanged, left upper lobe consolidated regions unchanged. Right upper lobe bandlike consolidation mildly progressed. Right effusions loculated and the upper and lower lung on the lateral pleural margin, new. Pericardial effusion new. Right hilar lymph node increased in size. Electronically Signed: Byron Alejandre MD at 15:23 EDT Tel , Service support , Thoracentesis Ultrasound 05/29/19 07:59 IMPRESSION: Ultrasound-guided left thoracentesis. Electronically Signed: Momo Katy, at 9:44 EDT , Service support , Chest X-Ray 05/29/19 09:20 IMPRESSION: Status post left thoracentesis. There is no evidence of pneumothorax. Electronically Signed: Momo Katy, at 9:43 EDT , Service support , Current Medications Acetaminophen (Tylenol) 650 mg PO Q6H PRN PRN PRN Reason: Mild pain 1-3/Temp > 100.7 F Al Hydroxide/Mg Hydroxide (Mylanta Ii) 30 ml PO Q6H PRN PRN PRN Reason: Gastric Burning Last Admin: 05/29/19 07:32 Dose: 30 ml Documented by: Albuterol Sulfate (Ventolin Aerosols) 2.5 mg INHALATION Q2H PRN PRN PRN Reason: SHORTNESS OF BREATH Last Admin: 05/28/19 03:50 Dose: 2.5 mg Documented by: Albuterol/Ipratropium (Duoneb) 3 ml INHALATION Q4HWA.RT [facility] Last Admin: 05/29/19 11:48 Dose: 3 ml Documented by: Atorvastatin Calcium (Lipitor) 10 mg PO QHS [facility] Last Admin: 05/28/19 21:19 Dose: 10 mg Documented by: Docusate Sodium (Colace) 100 mg PO BID PRN PRN PRN Reason: Constipation Famotidine (Pepcid) 20 mg PO DAILY [facility] Last Admin: 05/29/19 10:10 Dose: 20 mg Documented by: Ceftriaxone Sodium (Rocephin) 1 gm in 50 mls @ 100 mls/hr IV Q24 [facility] Last Admin: 05/29/19 10:09 Dose: 100 mls/hr Documented by: Magnesium Hydroxide (Milk Of Magnesia) 30 ml PO DAILY PRN PRN PRN Reason: Constipation Last Admin: 05/28/19 03:47 Dose: 30 ml Documented by: Ondansetron HCl (Zofran) 4 mg IV Q8H PRN PRN PRN Reason: NAUSEA/VOMITING Oxycodone HCl (Oxyir) 5 mg PO Q6H PRN PRN PRN Reason: Moderate Pain (4-6/10) Last Admin: 05/28/19 03:46 Dose: 5 mg Documented by: Polyethylene Glycol (Miralax) 17 gm PO DAILY [facility] Last Admin: 05/29/19 07:30 Dose: Not Given Documented by: Sertraline HCl (Zoloft) 25 mg PO DAILY [facility] Last Admin: 05/29/19 10:10 Dose: 25 mg Documented by: Sodium Chloride () 10 - 40 ml IV UD PRN PRN Reason: SALINE FLUSH Last Admin: 05/28/19 12:00 Dose: 10 ml Documented by: Medical Necessity - Tobacco Use Smoking Status: Former smoker Assessment/Plan All Active Problems (Last Reviewed 05/01/19 @ 13:28 by Miranda Lara) Tobacco abuse (Resolved) Sepsis due to Escherichia coli (Resolved) 1. Acute hypoxic respiratory insufficiency due to bilateral pleural effusions * still on 4L of oxygen * Chest CT showed unchanged left loculated effusion, and new right sided loculated effusions, with unchanged left upper and lower lobe lung consolidation * pulmonology on board * had USG guided therapeutic thoracentesis today, with drainage of ~ 500cc of lucía colored fluid from left pleural space * may benefit from pleurex catheter o/a of recurrent pleural effusions requiring thoracentesis * 2.Acute on chronic diastolic CHF * BNP was only mildly elevated at 115 * on lasix * 2D echo: EF of 53% and unable to assess diastolic dysfunction due to arrhythmia. No regional wall motion abnormalities noted. PA pressures 50 mmHg. No pericardial effusion. * Chest CT showed pericardial effusion; this was ruled out per echo * 3. New onset Afib: * rate controlled. started on metoprolol, but dose was reduced due overnight o/a of hypotension. * anticoagulation on hold for now since he is having therapeutic thoracentesis tomorrow. * BP meds held o/a of hypotension as BP was in 80s systolic this morning * 2D echo: as under 2. * will start oral anticoagulation tomorrow since he has had thoracentesis * TSH was normal at 0.86. * will need follow up with cardiology upon discharge. * 4. History of right nonsmall cell lung cancer: s/p radiation . Follows with Dr Teran 5. Acute UTI: on IV rocephin. Urine cultured gram negative anton and gram positive organisms. Identification and antibiotic sensitivity pending. 6. Hypertension: lisinopril held o/a of hypotension 7. Hyperlipidemia: continue statin 8. Chronic debility: PT/OT on board. Mobilises with wheelchair 9. Depression: on sertraline DVT prophylaxis; lovenox Code Visit Inpatient E&M: 54622 Subs Hosp L3
--- NOTE | 2019-05-29 13:51 | CASEMGMT ---
SCOTTIE faxed updates to [facility]. Rae ARAUJO DIRECTOR CARDIAC
[2019-05-29] MEDS: Atorvastatin Calcium 10 MG Tablet PO (22:00)
[2019-05-29] MEDS: APIXABAN 2.5 MG TABLET PO (22:00)
[2019-05-30] VITALS (15 sets, daily range): BP systolic 87–113; BP diastolic 44–64; PULSE 76–101; RESP 16–20; TEMP 36.4–36.9; O2SAT 92–100
[2019-05-30 06:16] LABS: Absolute Lymphocyte Count 0.57 X10^3/ul (0.83-4.51); Basophil# 0.01 X10^3/uL; Basophil% 0.2 % (0-1); Eosinophil# 0.08 X10^3/uL; Eosinophils% 1.5 % (0-5); Hematocrit 35.3 % (40-54); Hemoglobin 11.4 g/dl (13.0-16.5); Lymphocyte # 0.57 X10^3/ul (4.0); Lymphocyte % 10.3 % (19-41); Mean Corp Hgb Conc 32.3 g/gl (32-36); Mean Corpuscular Hgb 29.8 pg (27.0-32.0); Mean Corpuscular Volume 92.4 fL (80-94); Mean Platelet Vol. 8.2 fl (6.2-12.0); Monocyte# 0.88 X10^3/uL; Neutrophil # 3.96 X10^3/uL (2.7-7.7); Neutrophil % 71.8 % (47-70); Platelet Count 288 K/mm3 (150-450); RBC Distribution Width CV 13.5 % (11.6-14.6); RBC Distribution Width SD 45.2 fl (35.1-43.9); Red Blood Count 3.82 M/mm3 (4.6-6.2); White Blood Count 5.5 K/mm3 (4.4-11.0)
[2019-05-30 06:17] LABS: Anion Gap 4 (5-15); BUN 20 mg/dL (7-18); BUN/Creat Ratio 20.9 RATIO (10-20); Calcium,Total 8.6 mg/dL (8.5-10.1); Chloride 94 mmol/L (98-107); Creatinine, Serum 0.96 mg/dL (0.70-1.30); EST Glomerular Filtration Rate 80 mL/min (>60); Est Glom Filt Rate - Afr Amer 97 mL/min (>60); Estimated Creatinine Clearance 74.09 ml/min; Glucose 105 mg/dL (74-106); Sodium Level 132 mmol/L (136-145)
[2019-05-30 06:36] LABS: Differential Indicated SCAN CRITERIA MET; POSITIVE COUNT NO; POSITIVE DIFFERENTIAL YES; POSITIVE MORPHOLOGY NO
[2019-05-30 06:54] LABS: Differential Comment SCANNED
[2019-05-30] MEDS: Ipratropium/Albuterol Sulfate 3 ML AMPUL.NEB INHALATION ×3 (07:04→19:27)
--- NOTE | 2019-05-30 09:42 | PN_ITS ---
Subjective: Patient did well overnight. No acute issues were reported. Patient did have his thoracentesis yesterday and tolerated this well with 500 cc removed. Patient reported subjective improvement after the procedure. Patient still gets short of breath with exertion, but states I think it is my heart. - Physical Exam General: Alert, Oriented x3, Cooperative, No apparent distress, - - Appears older than stated age. No conversational dyspnea. HEENT: Atraumatic, PERRLA, EOMI, Normocephalic, - - No scleral icterus or injection noted. Oral: Moist Mucosa, No Gingival or Mucosal Lesions/ Ulcerations, - - Poor dentition. Neck: Supple, No Nodes, Trachea Midline, JVD, Right Lungs: No rhonchi, No wheeze, No rales, Diminished, - - Dullness to percussion is improved. Cardiovascular: Regular rate, Regular Rhythm, Normal S1, Normal S2, No murmurs, No rub noted, No Gallop Abdomen: Bowel Sounds Present, Soft, Non Tender, Distended Extremities: No cyanosis, Capillary Refill Less than 3 Seconds, Clubbing, Edema Skin: - - No significant change compared to previous Musculoskeletal: No Tenderness to Palpation of Joints or Extremities Lymphatic: No Cervical, Supraclavicular, or Inguinal Adenopathy Neurological: Cranial nerves II-XII grossly intact, Neuro grossly intact, Motor Exam 5/5 strength throughout Psych/Mental Status: Anxious, Restless Vital Signs Temp Pulse Resp BP Pulse Ox 36.8 C 82 16 101/50 L 96 05/30/19 06:10 05/30/19 07:20 05/30/19 07:04 05/30/19 06:10 05/30/19 07:04 Oxygen Flow Rate (L/min) [2] 2 Oxygen Flow Rate (L/min) [1 ( 2 Initial Baseline)] Oxygen Flow Rate (L/min) 2 Oxygen Delivery Method [3] Nasal Cannula Oxygen Delivery Method [2] Nasal Cannula Oxygen Delivery Method [1 ( Nasal Cannula Initial Baseline)] Oxygen Delivery Method Nasal Cannula Weight: 107.5 kg Body Mass Index (BMI) 28.5 Finger Stick Blood Glucose 192 Intake and Output for Last 24 Hours 05/28/19 05/29/19 05/30/19 23:59 23:59 23:59 Intake Total 1090 / 1210 1060 / 1060 60 / 60 Output Total 1300 / 1475 1350 / 1350 375 / 375 Balance -210 / -265 -290 / -290 -315 / -315 Microbiology Past 72 Hours 05/27/19 11:10 Urine Culture - Preliminary Urine Catheter - [facility] Pseudomonas aeroginosa Proteus mirabilis GPC Poss Enterococcus sp Laboratory Tests Past 24 Hrs 05/30/19 05/30/19 05:35 05:35 WBC 5.5 RBC 3.82 L Hgb 11.4 L Hct 35.3 L MCV 92.4 MCH 29.8 MCHC 32.3 RDW 13.5 RDW Differential 45.2 H Plt Count 288 MPV 8.2 Immature Gran % (Auto) 0.200 Neut % (Auto) 71.8 H Lymph % (Auto) 10.3 L [place] % (Auto) 16.0 H Eos % (Auto) 1.5 Baso % (Auto) 0.2 Absolute Neuts (auto) 4.0 Absolute Lymphs (auto) 0.57 L Total Counted Not Reportable Differential Comment SCANNED Sodium 132 L Potassium 5.0 Chloride 94 L Carbon Dioxide 34.0 H Anion Gap 4 L BUN 20 H Creatinine 0.96 Estim Creat Clear Calc 74.09 Est GFR (MDRD) Af Amer 97 Est GFR (MDRD) Non-Af 80 BUN/Creatinine Ratio 20.9 H Glucose 105 Calcium 8.6 Clinical Impression(s) from Imaging Studies Thoracentesis Ultrasound 05/29/19 07:59 IMPRESSION: Ultrasound-guided left thoracentesis. Electronically Signed: Momo Burns, at 9:44 EDT , Service support , Chest X-Ray 05/29/19 09:20 IMPRESSION: Status post left thoracentesis. There is no evidence of pneumothorax. Electronically Signed: Momo Burns, at 9:43 EDT , Service support , Medical Necessity - Tobacco Use Smoking Status: Former smoker Assessment/Plan All Active Problems (Last Reviewed 05/01/19 @ 13:28 by Miranda Lara) Tobacco abuse (Resolved) Sepsis due to Escherichia coli (Resolved) RECOMMENDATIONS: 1. Wean oxygen as tolerated 2. Consider diuretic therapy in addition to thoracentesis 3. Walking oximetry prior to discharge 4. Possible patient PET scan 5. Await cytology from thoracentesis 6. Possible referral as an outpatient for a VATS with pleurodesis IMPRESSIONS: 1. Acute hypoxic respiratory insufficiency secondary to severe sepsis secondary to UTI Likely multifactorial etiology. Patient has had loculated effusions noted for several months. Patient did receive radiation therapy, so an element of radiation pneumonitis would be expected. Patient also has an underlying diagnosis of COPD. Patient does not have any fevers, chills, leukocytosis or productive cough to suggest an empyema or parapneumonic effusion. Patient does have a UTI at this time. Patient was substantial amount of fluid removed with recent thoracentesis. If this were to continue, and cytology is negative, patient may require a VATS procedure for biopsy and pleurodesis. This would be completed as an outpatient. Patient does have a history of prostate and non- small cell lung cancer, so recurrence would be a consideration. Would defer to oncology, but PET scan may be appropriate for evaluation. Patient currently on baseline oxygen therapy. Dyspnea may also be secondary to increased metabolic demand in the setting of UTI. 2. Acute on chronic diastolic congestive heart failure exacerbated by new onset A. fib Rate is currently controlled. Patient does appear to have an acute UTI, which may be increasing sympathetic tone. BNP was only mildly elevated. Would consider Lasix therapy given patient's reported lower extremity edema and new pericardial effusion. Patient is relatively neutral from a fluid status perspective throughout the hospitalization. 3. Hypertension/hyperlipidemia/chronic debility/advanced stage/non-small cell lung cancer status post radiation/history of prostate cancer/depression Complicates care, management, recovery and prognosis. Likely okay to continue with baseline medications. Patient is on antibiotics for presumed UTI. However, patient does not have leukocytosis or other indications of systemic sepsis. Code Visit Inpatient E&M: 66260 Subs Hosp L2
[2019-05-30] MEDS: Ceftriaxone 1 GM/50 ML BAG IV (10:23)
[2019-05-30] MEDS: 0.9% NaCl Peripheral Flush Adult/Peds IV (10:24)
[2019-05-30] MEDS: Sertraline 50 MG Tablet 25 MG PO (10:24)
[2019-05-30] MEDS: Famotidine 20 MG Tablet PO (10:24)
--- NOTE | 2019-05-30 10:45 | NURSING ---
Pt was assisted to the BSC to have BM and tolerated well. Pt pulled tele off saying it was too heavy and he was fine. Encouraged pt to allow us to keep tele on, but pt refused. While on BSC after BM, pt became very diaphoretic and pale. stated he did not feel well. BP checked and was 76/39, HR 77. Additional staff obtained and pt helped back to bed.
--- NOTE | 2019-05-30 10:58 | CASEMGMT ---
Addendum entered by Rae Navarro 05/30/19 16:07: Patient may or may not be discharged today. SCOTTIE called Maggie at [facility] and let her know this information. SW left a green sheet on chart. Obtaining transportation may be a problem. Rae GUERRA Original Note: Physician indicating patient will be ready for discharge today after he sees Cardiology. SCOTTIE spoke with Maggie at [facility] and let her know this information. SW also received a call from [facility] and patient was approved for skilled level of care at [facility]. Rae GUERRA
[2019-05-30] MEDS: APIXABAN 2.5 MG TABLET PO ×2 (12:03→23:05)
--- NOTE | 2019-05-30 12:09 | PN_ITS ---
Subjective: Patient seen and examined. Shortness of breath is better and abdominal distention is also improved. He does admit to passing a lot of gas. Review of signs otherwise negative. Labs and vitals reviewed. Vitals/I&O's: Vital Signs Temp Pulse Resp BP Pulse Ox 98.3 F 82 20 H 101/50 L 96 05/30/19 06:10 05/30/19 11:10 05/30/19 11:10 05/30/19 06:10 05/30/19 07:04 Oxygen Flow Rate (L/min) [2] 2 Oxygen Flow Rate (L/min) [1 ( 2 Initial Baseline)] Oxygen Flow Rate (L/min) 2 Oxygen Delivery Method [3] Nasal Cannula Oxygen Delivery Method [2] Nasal Cannula Oxygen Delivery Method [1 ( Nasal Cannula Initial Baseline)] Oxygen Delivery Method Nasal Cannula Weight: 236 lb 15.951 oz Body Mass Index (BMI) 28.5 Finger Stick Blood Glucose 192 Intake and Output for Last 24 Hours 05/28/19 05/29/19 05/30/19 23:59 23:59 23:59 Intake Total 1090 / 1210 1060 / 1060 60 / 60 Output Total 1300 / 1475 1350 / 1350 675 / 675 Balance -210 / -265 -290 / -290 -615 / -615 General: Alert, Oriented x3, Cooperative HEENT: Atraumatic, PERRLA, EOMI, Normocephalic, Neck: Supple, No JVD, Negative Carotid Bruits Lungs: Diminished breath sounds bibasally, no wheeze or crackles. on 4L of oxygen Cardiovascular: Normal S1, Normal S2, No murmurs, - - Atrial fibrillation, rate controlled Abdomen: Bowel Sounds Present, Soft, Non Tender, mild abdominal distension, Obese, abdominal wall Hernia Extremities: No clubbing, No cyanosis, Capillary Refill Less than 3 Seconds, bilateral nonpitting 1+ Edema of LEs. Skin: No rashes, No breakdown Musculoskeletal: No Tenderness to Palpation of Joints or Extremities Neurological: Cranial nerves II-XII grossly intact, Neuro grossly intact Psych/Mental Status: Normal Affect, Appropriate Microbiology Past 72 Hours 05/27/19 11:10 Urine Catheter - [facility] Urine Culture - Preliminary Pseudomonas aeroginosa Proteus mirabilis GPC Poss Enterococcus sp Laboratory Results 05/30/19 05:35: WBC 5.5, RBC 3.82 L, Hgb 11.4 L, Hct 35.3 L, MCV 92.4, MCH 29.8, MCHC 32.3, RDW 13.5, RDW Differential 45.2 H, Plt Count 288, MPV 8.2, Immature Gran % (Auto) 0.200, Neut % (Auto) 71.8 H, Lymph % (Auto) 10.3 L, Bell % (Auto) 16.0 H, Eos % (Auto) 1.5, Baso % (Auto) 0.2, Absolute Neuts (auto) 4.0, Absolute Lymphs (auto) 0.57 L, Total Counted Not Reportable, Differential Comment SCANNED 05/30/19 05:35: Sodium 132 L, Potassium 5.0, Chloride 94 L, Carbon Dioxide 34.0 H, Anion Gap 4 L, BUN 20 H, Creatinine 0.96, Estim Creat Clear Calc 74.09, Est GFR (MDRD) Af Amer 97, Est GFR (MDRD) Non-Af 80, BUN/Creatinine Ratio 20.9 H, Glucose 105, Calcium 8.6 Diagnostic Data Abdomen/Pelvis CT 05/27/19 11:09 IMPRESSION: 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 Stable benign renal cysts bilaterally. Pancreatic atrophy. No acute abdominopelvic process is evident. There is no evidence of bowel distention or inflammation. There is no ascites. There are no specific features of cirrhosis. Electronically Signed: Byron Alejandre MD at 15:38 EDT Tel , Service support , Chest CTA 05/27/19 13:37 IMPRESSION: Compared to imaging of March 2019, loculated left effusion unchanged, left lower lobe subsegmental region of dense consolidation unchanged, left upper lobe consolidated regions unchanged. Right upper lobe bandlike consolidation mildly progressed. Right effusions loculated and the upper and lower lung on the lateral pleural margin, new. Pericardial effusion new. Right hilar lymph node increased in size. Electronically Signed: Byron Alejandre MD at 15:23 EDT Tel , Service support , Thoracentesis Ultrasound 05/29/19 07:59 IMPRESSION: Ultrasound-guided left thoracentesis. Electronically Signed: Momo Lundbergyoni, at 9:44 EDT , Service support , Chest X-Ray 05/29/19 09:20 IMPRESSION: Status post left thoracentesis. There is no evidence of pneumothorax. Electronically Signed: Momo Lundbergyoni, at 9:43 EDT , Service support , Current Medications Acetaminophen (Tylenol) 650 mg PO Q6H PRN PRN PRN Reason: Mild pain 1-3/Temp > 100.7 F Al Hydroxide/Mg Hydroxide (Mylanta Ii) 30 ml PO Q6H PRN PRN PRN Reason: Gastric Burning Last Admin: 05/29/19 22:14 Dose: 30 ml Documented by: Albuterol Sulfate (Ventolin Aerosols) 2.5 mg INHALATION Q2H PRN PRN PRN Reason: SHORTNESS OF BREATH Last Admin: 05/28/19 03:50 Dose: 2.5 mg Documented by: Albuterol/Ipratropium (Duoneb) 3 ml INHALATION Q4HWA.RT [facility] Last Admin: 05/30/19 11:10 Dose: 3 ml Documented by: Apixaban (Eliquis) 2.5 mg PO BID [facility] Last Admin: 05/30/19 12:03 Dose: 2.5 mg Documented by: Atorvastatin Calcium (Lipitor) 10 mg PO QHS [facility] Last Admin: 05/29/19 22:00 Dose: 10 mg Documented by: Docusate Sodium (Colace) 100 mg PO BID PRN PRN PRN Reason: Constipation Famotidine (Pepcid) 20 mg PO DAILY [facility] Last Admin: 05/30/19 10:24 Dose: 20 mg Documented by: Ceftriaxone Sodium (Rocephin) 1 gm in 50 mls @ 100 mls/hr IV Q24 [facility] Last Admin: 05/30/19 10:23 Dose: 100 mls/hr Documented by: Magnesium Hydroxide (Milk Of Magnesia) 30 ml PO DAILY PRN PRN PRN Reason: Constipation Last Admin: 05/28/19 03:47 Dose: 30 ml Documented by: Metoprolol Tartrate (Lopressor (Beta Elvira)) 12.5 mg PO BID [facility] Last Admin: 05/30/19 11:21 Dose: Not Given Documented by: Ondansetron HCl (Zofran) 4 mg IV Q8H PRN PRN PRN Reason: NAUSEA/VOMITING Oxycodone HCl (Oxyir) 5 mg PO Q6H PRN PRN PRN Reason: Moderate Pain (4-6/10) Last Admin: 05/28/19 03:46 Dose: 5 mg Documented by: Polyethylene Glycol (Miralax) 17 gm PO DAILY [facility] Last Admin: 05/30/19 10:24 Dose: Not Given Documented by: Sertraline HCl (Zoloft) 25 mg PO DAILY [facility] Last Admin: 05/30/19 10:24 Dose: 25 mg Documented by: Sodium Chloride () 10 - 40 ml IV UD PRN PRN Reason: SALINE FLUSH Last Admin: 05/30/19 10:24 Dose: 10 ml Documented by: Medical Necessity - Tobacco Use Smoking Status: Former smoker Assessment/Plan All Active Problems (Last Reviewed 05/01/19 @ 13:28 by Miranda Lara) Tobacco abuse (Resolved) Sepsis due to Escherichia coli (Resolved) 1. Acute hypoxic respiratory insufficiency due to bilateral pleural effusions * weaned down to 2L of oxygen * is s/p USG guided thoracentesis of left pleural effusion, with drainage of 500cc of pleural fluid * stable. Titrate oxygen to maintain sats>90% * pulmonology on board * * 2.Acute on chronic diastolic CHF * BNP was only mildly elevated at 115 * on lasix * 2D echo: EF of 53% and unable to assess diastolic dysfunction due to arrhythmia. No regional wall motion abnormalities noted. PA pressures 50 mmHg. No pericardial effusion. * Chest CT showed pericardial effusion; this was ruled out per echo * 3. New onset Afib: * rate controlled. Metoprolol held on account of hypotension. * EF of 53%. * Started on Eliquis for anticoagulation. * Cardiology consulted today: For stress test tomorrow per cardiology. * * 4. History of right nonsmall cell lung cancer: s/p radiation. Follows with Dr Prah 5. Acute UTI: * on IV rocephin. * Urine cultured Pseudomonas and Proteus * 6. Hypertension: lisinopril held o/a of hypotension> 7. Hyperlipidemia: continue statin 8. Chronic debility: PT/OT on board. Mobilises with wheelchair 9. Depression: on sertraline DVT prophylaxis; lovenox Code Visit Inpatient E&M: 53201 Subs Hosp L2
--- NOTE | 2019-05-30 14:33 | STEWCON_ITS ---
Reason For Study: AFIB/FLUTTER Stress Results Protocol: Dobutamine Stress Protocol Maximum Predicted HR: 139 bpm Target HR: 118 bpm % Maximum Predicted HR: 99 % DurationHeart Rate Stage (mm:ss) (bpm) BP Dose Comment BASELINE 93 101/61 2 CC DEFINITY STAGE 1 3:21 102 107/5510.00 STAGE 2 2:05 137 116/5420.00 RECOVERY 100 128/58 2 CC DEFINITY Stress Duration: 5:26 mm:ss Maximum Stress HR: 137 bpm Baseline Echocardiogram Findings The estimated ejection fraction is 60 %. Stress Echo Wall motion Data Resting WM Intermediate WM Stress WM Resting Wall Motion Wall Motion Stress No regional wall motion No regional wall motion abnormalities noted. abnormalities noted. EKG Data Atrial fibrillation with controlled ventricular response. The patient was titrated from 10 mcg to a maximum of 20 mcg of dobutamine during the stress. The maximum heart rate attained was 148 beats per minute. This was 106% of maximum predicted heart rate. During dobutamine infusion, there were no ST or T wave changes noted to suggest ischemia. No clinical angina was noted. Interpretation Summary The estimated ejection fraction is 60 %. Normal, adequate, dobutamine echocardiogram. Negative for ischemia by EKG and echocardiographic criteria. No anginal symptoms noted. Baseline atrial fibrillation with controlled ventricular response. Rare PVCs and ventricular couplets noted. Appropriate blood pressure response to dobutamine. Decreased sensitivity due to poor echo windows requiring Definity agent. Final LVEF is 75%. Test terminated due to the attainment of target heart rate. No complications. The study was technically difficult. Contrast injection was performed. Ordering Physician: Eugenio Canales Referring Physician: Macie Horn Performed By: Debi Slaughter, RDCS, RVT
--- NOTE | 2019-05-30 14:37 | CON.PCM_ITS ---
Problem List (1) Atrial fibrillation Status: Acute (2) Tobacco abuse Status: Resolved (3) Non-small cell lung cancer (NSCLC) Status: Chronic Qualifiers: Laterality: right Qualified Code(s): C34.91 - Malignant neoplasm of unspecified part of right bronchus or lung (4) Pleural effusion on left Status: Chronic Reason for Consult Date of Consultation: 05/30/19 Reason for Consultation: Atrial fibrillation, shortness of breath, previous tobacco abuse History of Present Illness: The patient is a 83 year old M, with small cell lung cancer, no known cardiac history, no previous atrial fibrillation, TIA, CVA, no previous catheterization, with a history of multiple left-sided thoracentesis for recurrent left pleural effusion with probable loculation per the patient. Patient was admitted with dyspnea on exertion, shortness of breath and found to have a significant left pleural effusion. He underwent left-sided thoracentesis with approximately 500 cc of fluid removed. Patient's symptoms improved however it was noted the patient developed atrial fibrillation with controlled ventricular response. A 2D echo was performed yesterday which showed an EF around 50%, and an RVSP of 50 mmHg with 1+ tricuspid regurgitation. From a cardiac history he denies any exertional chest pain, angina, but is very sedentary at the skilled nursing and [facility]. His main complaint is dyspnea on exertion which appears to have improved after his thoracentesis. Troponins are negative x3. Patient is a recently quit smoker, and is status post small cell lung cancer in the right lung, status post chemotherapy. According to the patient he has never been told he had cancer on his left lung. [] Past Medical History Allergies/Adverse Reactions: Allergies doxycycline Allergy (Verified 05/01/19 13:24) pt is unsure tetracycline Allergy (Verified 05/01/19 13:24) Rash venom-honey bee [bee venom (honey bee)] Allergy (Verified 05/01/19 13:24) Swelling Home Medications: Ambulatory Orders Medication Instructions Recorded Albuterol Aerosols [Ventolin 2.5 mg INHALATION Q4H PRN PRN 05/27/19 Aerosols] Atorvastatin Calcium 1 tab PO DAILY 05/27/19 Budesonide Aerosol [Pulmicort 1 inhaler INHALATION BID 05/27/19 Respules] Furosemide [Lasix] 40 mg PO BID 05/27/19 Glycopyrrolate/Formoterol Fum 2 puff INHALATION Q12H 05/27/19 [Bevespi Aerosphere Inhaler] Ipratropium/Albuterol Sulfate 3 ml INHALATION Q4H.RT 05/27/19 [Duoneb] L. Acidophilus/L.bulgaricus 1 ea PO DAILY 05/27/19 [Lactobacillus Tablet] Lisinopril 5 mg PO DAILY 05/27/19 Lutein Extract/Zeaxanthin Ext 1 ea PO TUFR 05/27/19 [Lutein 15 mg Softgel] Multivitamin [Daily Value] 1 ea PO DAILY 05/27/19 [place]-3 Fatty Acids/Fish Oil [Fish 1 ea PO DAILY 05/27/19 Oil 1,000 mg Capsule] Ondansetron HCl [Zofran] 4 mg PO Q6H PRN 05/27/19 Ranitidine [Zantac] 75 mg PO DAILY 05/27/19 Sertraline HCl [Zoloft] 25 mg PO DAILY 05/27/19 Past Medical History (Chronic Problems): Chronic Problems (Last Reviewed 05/01/19 @ 13:28 by Miranda Lara) COPD (Chronic) prostate cancer (Chronic) status post radiation Alcoholism (Chronic) Hypoxia (Chronic) Urinary retention (Chronic) Non-small cell lung cancer (NSCLC) (Chronic) Pleural effusion on left (Chronic) Atelectasis of left lung (Chronic) Surgical History: no surgical history Psychiatric History: No pertinent psych hx - *Family History Paternal Family History: Family History (Last Reviewed 05/27/19 @ 17:13 by MARCY Neri) Father Brain cancer Mother Cervical cancer History Items: - - brain tumor Maternal Family History: Family History (Last Reviewed 05/27/19 @ 17:13 by MARCY Neri) Father Brain cancer Mother Cervical cancer History Items: Cancer - cervical, Hypertension Lives: Detention Smoking Status: Former smoker Alcohol: Sober Drugs: None Review of Systems - Review of Systems General: Denies: Fever, Night Sweats, Fatigue Cardiovascular: Reports: Shortness of Breath, Shortness of Breath at Rest, Orthopnea, PND. Denies: Chest Discomfort, Peripheral Edema, Palpitations, Lightheadedness, Dizziness, Near Syncope, Syncope Respiratory: Denies: Cough, Sputum Production, Hemoptysis Gastrointestinal: Denies: Hematemesis, Hematochezia, Melena Genitourinary: Denies: Dysuria, Hematuria Skin: Denies: Rash Subjectve: Patient laying in bed, no acute distress. Objective: Vital Signs Temp Pulse Resp BP Pulse Ox 97.8 F 91 18 101/60 94 05/30/19 14:28 05/30/19 14:28 05/30/19 14:28 05/30/19 14:28 05/30/19 14:28 Oxygen Flow Rate (L/min) [2] 2 Oxygen Flow Rate (L/min) [1 ( 2 Initial Baseline)] Oxygen Flow Rate (L/min) 2.5 Oxygen Delivery Method [3] Nasal Cannula Oxygen Delivery Method [2] Nasal Cannula Oxygen Delivery Method [1 ( Nasal Cannula Initial Baseline)] Oxygen Delivery Method Nasal Cannula Weight: 236 lb 15.951 oz Body Mass Index (BMI) 28.5 Finger Stick Blood Glucose 192 Intake and Output for Last 24 Hours 05/28/19 05/29/19 05/30/19 23:59 23:59 23:59 Intake Total 1090 / 1210 1060 / 1060 60 / 60 Output Total 1300 / 1475 1350 / 1350 675 / 675 Balance -210 / -265 -290 / -290 -615 / -615 General: Awake, Alert, Oriented x 3 HEENT: PERRL, EOMI, Sclera Non Icteric Neck: Supple, Good ROM, No Lymph Node Enlargement Lungs: Diminished Nikos Bases, Rales - Left Base, Dullness to Percussion-Left Cardiovascular: Irregular Rhythm, Normal S1, Normal S2, No Rubs, No Gallops, Positive P2 Murmur Murmur: Grade 2/6, Holosystolic Vascular: No Carotid Bruits, Normal Femoral Pulses, Normal Radial Pulses, Normal Dorsalis Pedal Pulse, Normal Posterior Tibial Pulses Abdomen: Bowel Sounds Present, Soft, Non Tender, No HSM, No Organomegaly Extremities: No Cyanosis, No Clubbing, No edema Neurological: No Focal Motor or Sensory Deficit 05/30/19 05:35: WBC 5.5, RBC 3.82 L, Hgb 11.4 L, Hct 35.3 L, MCV 92.4, MCH 29.8, MCHC 32.3, RDW 13.5, RDW Differential 45.2 H, Plt Count 288, MPV 8.2, Immature Gran % (Auto) 0.200, Neut % (Auto) 71.8 H, Lymph % (Auto) 10.3 L, [place] % (Auto) 16.0 H, Eos % (Auto) 1.5, Baso % (Auto) 0.2, Absolute Neuts (auto) 4.0, Total Counted Not Reportable 05/30/19 05:35: Sodium 132 L, Potassium 5.0, Chloride 94 L, Carbon Dioxide 34.0 H, Anion Gap 4 L, BUN 20 H, Creatinine 0.96, Est GFR (MDRD) Af Amer 97, Est GFR (MDRD) Non-Af 80, BUN/Creatinine Ratio 20.9 H, Glucose 105, Calcium 8.6 Rhythm: EKG: ECHO: Stress Test: Cardiac Cath: PCI: CT Surgery: Holter monitor: EPS: PPM: CXR: Chest CT Scan: Assessment/Plan 1. Atrial fibrillation: Patient presents with new onset atrial fibrillation, superimposed on chronic left lung pleural effusion status post thoracentesis x4 in the past. He has a history of small cell lung cancer on the right side, and has never been told he had atrial fibrillation before. He denies previous catheterization, stress test, TIA or stroke. His echocardiogram demonstrates an EF mildly diminished at 50%, and at least moderate pulmonary hypertension which may be contributing to his pleural effusion and his atrial fibrillation. I recommended the patient undergo a dobutamine echocardiogram to evaluate for possible ischemia. If this is abnormal he may require diagnostic coronary angiogram but if he has concomitant coronary occlusive disease in addition to his atrial fibrillation. His troponins have been negative x2. If however his stress test is negative, we will continue with anticoagulation therapy and heart rate control therapy with either beta-ximena or calcium channel blockers. He may require at least 3 weeks of Eliquis therapy or 4 weeks of Coumadin therapy prior to DC cardioversion, assuming he does not convert on his own. In addition I would discontinue his Eliquis at this time in case he needs a catheterization and substituted for Lovenox 70 mg subcu twice daily until his stress test has been completed. If his stress test is negative, I will discontinue his Lovenox and switch him back to Eliquis. 2. Thank you very much for the opportunity to participate in the cardiac care of your patient. Consultation time took place between 2 PM and 2:45 PM. Code Visit Inpatient E&M: 05301 Init Hosp L2
[2019-05-30] MEDS: Atorvastatin Calcium 10 MG Tablet PO (23:05)
[2019-05-31] VITALS (8 sets, daily range): BP systolic 100–104; BP diastolic 49–50; PULSE 70–91; RESP 16–24; TEMP 36.6–36.8; O2SAT 94–97
[2019-05-31] MEDS: Albuterol 2.5 MG/3 ML VIAL.NEB. INHALATION (05:07)
[2019-05-31] MEDS: Ipratropium/Albuterol Sulfate 3 ML AMPUL.NEB INHALATION ×2 (07:17→10:50)
--- NOTE | 2019-05-31 08:57 | PCM.PN.PUL ---
Patient Problems: Active and Suspected Problems (Last Reviewed 05/01/19 @ 13:28 by Miranda Lara) Atrial fibrillation (Acute) Subjective: Patient doing okay at this time. Patient did have a stress test last night and reportedly passed. Patient denies any current shortness of breath. Patient is complaining of diarrhea, but attributes this to a dose of MiraLAX. Patient is still reporting a sensation of abdominal bloating. - Physical Exam General: Alert, Oriented x3, Cooperative, No apparent distress, - - Appears older than stated age. No conversational dyspnea. Supplemental oxygen in place. HEENT: Atraumatic, PERRLA, EOMI, Normocephalic, - - No scleral icterus Oral: Moist Mucosa, No Gingival or Mucosal Lesions/ Ulcerations Neck: Supple, No JVD, No Nodes, Trachea Midline Lungs: No rhonchi, No wheeze, No rales, Diminished Cardiovascular: Regular rate, Regular Rhythm, Normal S1, Normal S2, No murmurs, No rub noted, No Gallop Abdomen: Bowel Sounds Present, Soft, Non Tender, Distended Extremities: No cyanosis, Clubbing, Edema Skin: - - No significant change compared to previous Musculoskeletal: No Tenderness to Palpation of Joints or Extremities, No Muscle Wasting Lymphatic: No Cervical, Supraclavicular, or Inguinal Adenopathy Neurological: Neuro grossly intact, Motor Exam 5/5 strength throughout Psych/Mental Status: Alert and oriented to time, place, person, mood and affect Vital Signs Temp Pulse Resp BP Pulse Ox 36.6 C 70 18 100/50 L 97 05/31/19 05:00 05/31/19 07:17 05/31/19 07:17 05/31/19 05:00 05/31/19 07:17 Oxygen Flow Rate (L/min) [2] 2 Oxygen Flow Rate (L/min) [1 ( 2 Initial Baseline)] Oxygen Flow Rate (L/min) 3.5 Oxygen Delivery Method [3] Nasal Cannula Oxygen Delivery Method [2] Nasal Cannula Oxygen Delivery Method [1 ( Nasal Cannula Initial Baseline)] Oxygen Delivery Method Nasal Cannula Weight: 106.1 kg Body Mass Index (BMI) 28.5 Finger Stick Blood Glucose 192 Intake and Output for Last 24 Hours 05/29/19 05/30/19 05/31/19 23:59 23:59 23:59 Intake Total 1060 / 1060 950 / 950 60 / 60 Output Total 1350 / 1350 1350 / 1350 375 / 375 Balance -290 / -290 -400 / -400 -315 / -315 Microbiology Past 72 Hours 05/27/19 11:10 Urine Culture - Preliminary Urine Catheter - Avila Pseudomonas aeroginosa Proteus mirabilis Enterococcus faecalis Staphylococcus aureus Medical Necessity - Tobacco Use Smoking Status: Former smoker Assessment/Plan All Active Problems (Last Reviewed 05/01/19 @ 13:28 by Miranda Lara) Atrial fibrillation (Acute) Tobacco abuse (Resolved) Sepsis due to Escherichia coli (Resolved) RECOMMENDATIONS: 1. Wean oxygen as tolerated 2. Okay to discharge from pulmonary perspective 3. Walking oximetry prior to discharge 4. Possible outpatient PET scan 5. Await cytology from thoracentesis 6. Possible referral as an outpatient for a VATS with pleurodesis IMPRESSIONS: 1. Acute hypoxic respiratory insufficiency secondary to severe sepsis secondary to UTI Likely multifactorial etiology. Patient has had loculated effusions noted for several months. Patient did receive radiation therapy, so an element of radiation pneumonitis would be expected. Patient also has an underlying diagnosis of COPD. Patient does not have any fevers, chills, leukocytosis or productive cough to suggest an empyema or parapneumonic effusion. Patient does have a UTI at this time. Patient was substantial amount of fluid removed with recent thoracentesis. If this were to continue, and cytology is negative, patient may require a VATS procedure for biopsy and pleurodesis. This would be completed as an outpatient and should not limit patient's discharge. Patient does have a history of prostate and non-small cell lung cancer, so recurrence would be a consideration. Would defer to oncology, but PET scan may be appropriate for evaluation. Patient currently on baseline oxygen therapy. Dyspnea may also be secondary to increased metabolic demand in the setting of UTI. Defer to hospitalist on antibiotic selection. 2. Acute on chronic diastolic congestive heart failure exacerbated by new onset A. fib Rate is currently controlled. Patient does appear to have an acute UTI, which may be increasing sympathetic tone. BNP was only mildly elevated. Would consider Lasix therapy given patient's reported lower extremity edema and new pericardial effusion. Patient is relatively neutral from a fluid status perspective throughout the hospitalization. 3. Hypertension/hyperlipidemia/chronic debility/advanced stage/non-small cell lung cancer status post radiation/history of prostate cancer/depression Complicates care, management, recovery and prognosis. Likely okay to continue with baseline medications. Patient is on antibiotics for presumed UTI. However, patient does not have leukocytosis or other indications of systemic sepsis. Code Visit Inpatient E&M: 14535 Subs Hosp L2
--- NOTE | 2019-05-31 11:14 | PCM.TXEXTCAR ---
- Diet 05/28/19 13:52 Diet: Cardiac/Low Cholesterol Is pt able to select menu?: Yes - Routine Orders/Code Status Enema Type: Fleetz Enema Frequency: Daily PRN Suppository Type: Dulcolax 10mg Suppository Frequency: Daily PRN O2 Liters per Minute: 3 O2 Frequency: Continuous Keep PO Greater than or Equal to (%): 90 Code Status: Full Code - Wound(s) lower back Wound Type: Puncture - Therapies Physical Therapy: Eval and Treat Occupational Therapy: Eval and Treat - Allergies/Procedures Done in Hospital Allergies/Adverse Reactions: Allergies doxycycline Allergy (Verified 05/01/19 13:24) pt is unsure tetracycline Allergy (Verified 05/01/19 13:24) Rash venom-honey bee [bee venom (honey bee)] Allergy (Verified 05/01/19 13:24) Swelling Procedures: 2-D Echocardiogram, Nuclear Stress Test - Type of Care/Length of Stay Estimated LOS: More Than 30 Days Type of Care Needed: Skilled Rehab Potential: Fair Prognosis: Fair - Additional Orders/Day of Discharge Day of Discharge: 05/31/19 - Dietary and Speech Recommendations Dietitian Recommendations/Changes: Suggest diet change to cardiac/low sodium with fluid restriction as needed. - Follow Up Care Primary Care Physician: Heladio Rios MD [Primary Care Provider] - Please follow up with your Primary Care Physician in: one week Please Follow Up With: Eugenio Canales MD When: one week Please Follow Up With: Mathieu Handy MD When: 1-2 weeks
[2019-05-31] MEDS: Sertraline 50 MG Tablet 25 MG PO (11:16)
[2019-05-31] MEDS: Metoprolol Tartrate 25 MG Tablet 12.5 MG PO (11:16)
--- NOTE | 2019-05-31 11:16 | PCM.DC.SUM ---
Discharge Date and Diagnosis Date of Admission: 05/27/19 Date of Discharge: 05/31/19 - Primary Discharge Diagnosis Active and Suspected Problems (Last Reviewed 05/01/19 @ 13:28 by Miranda Lara) Atrial fibrillation (Acute) pleural effusion - Secondary Discharge Diagnosis Chronic Problems (Last Reviewed 05/01/19 @ 13:28 by Miranda Lara) COPD (Chronic) prostate cancer (Chronic) status post radiation Alcoholism (Chronic) Hypoxia (Chronic) Urinary retention (Chronic) Non-small cell lung cancer (NSCLC) (Chronic) Pleural effusion on left (Chronic) Atelectasis of left lung (Chronic) Hospital Course and Treatment Imaging Results: Diagnostic Data Abdomen/Pelvis CT 05/27/19 11:09 IMPRESSION: 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 Stable benign renal cysts bilaterally. Pancreatic atrophy. No acute abdominopelvic process is evident. There is no evidence of bowel distention or inflammation. There is no ascites. There are no specific features of cirrhosis. Electronically Signed: Byron Alejandre MD at 15:38 EDT Tel , Service support , Chest CTA 05/27/19 13:37 IMPRESSION: Compared to imaging of March 2019, loculated left effusion unchanged, left lower lobe subsegmental region of dense consolidation unchanged, left upper lobe consolidated regions unchanged. Right upper lobe bandlike consolidation mildly progressed. Right effusions loculated and the upper and lower lung on the lateral pleural margin, new. Pericardial effusion new. Right hilar lymph node increased in size. Electronically Signed: Byron Alejandre MD at 15:23 EDT Tel , Service support , Thoracentesis Ultrasound 05/29/19 07:59 IMPRESSION: Ultrasound-guided left thoracentesis. Electronically Signed: Momo Burns, at 9:44 EDT , Service support , Chest X-Ray 05/29/19 09:20 IMPRESSION: Status post left thoracentesis. There is no evidence of pneumothorax. Electronically Signed: Momo Burns, at 9:43 EDT , Service support , pulmonology- Dr Handy cardiology- Dr Canales Operations: None Procedures: 2-D Echocardiogram, Stress test Summary of Care Provided: The patient is a 83 year old M with past medical history as listed. He was admitted from his correction on 05/27/2019 with a complaint of shortness of breath which began 1 day prior to admission. He also tested abdominal bloating and constipation and had taken milk of magnesia and prune juice to help with the constipation. This was successful. However he continued to have abdominal bloating and distention which she states worsened shortness of breath. He did have a history of recurrent pleural effusion for which she had required multiple thoracentesis in the past. CT scan of the chest showed a loculated left pleural effusion which is chronic and a new right-sided pleural effusion as well as new pericardial effusion. CT of the abdomen and pelvis was negative. He was admitted and managed for acute on chronic hypoxic respiratory insufficiency due to pleural effusion and UTI. Of note, on admission, patient was also found to be in A. fib, this was new. TSH checked was within normal limits. He was started on metoprolol for the A. fib. Pulmonology was consulted on account of the pleural effusion. Patient was also found to have UTI and was started on IV Rocephin. He had left-sided ultrasound-guided thoracentesis on 05/29/2019 with drainage of about 500 cc of fluid. Echocardiogram done showed EF of 53% and diastolic function was not assessed on account of arrhythmia. PA pressure was noted to be 50 mmHg and no pericardial effusion was seen on the echo. Of note, on admission patient was also managed for acute on chronic diastolic CHF and was put on Lasix. This quickly improved. His BNP was only mildly elevated at 115. Patient symptoms improved. He remained in about 2 to 3 L of oxygen sometimes going up to 4 L of oxygen during admission. Cardiology was consulted on account of new onset A. fib and patient had a stress echocardiogram on 05/30/2019 which was negative. Patient remained stable and was discharged to his correction on 05/31/2019. He was discharged with a prescription for p.o. metoprolol and p.o. Eliquis. Patient's urine culture did Pseudomonas and Proteus. Patient was on IV ceftriaxone for 5 days and so decision was made not to send patient to SNF on oral antibiotics. He remained stable and was discharged on 05/31/2019 to SNF. Patient seen and examined prior to discharge. He still did complain of some mild shortness of breath but abdominal distention had improved. Denied any fever chills palpitations or dizziness. Review of systems is otherwise negative. Labs and vitals reviewed. Home medications reviewed and reconciled. o/e: Vital Signs Height 6 ft 4 in Weight: 233 lb 14.567 oz Weight in Pounds 233.9 lbs BMI 30.4 Pulse Ox 94 Temperature 98.2 F Pulse Rate [3] 86 Pulse Rate [2] 108 Pulse Rate [1 (Initial 95 Baseline)] Pulse Rate 79 Respiratory Rate [3] 18 Respiratory Rate [2] 18 Respiratory Rate [1 (Initial 18 Baseline)] Respiratory Rate 16 Blood Pressure [3] 94/55 Blood Pressure [2] 110/64 Blood Pressure [1 (Initial 119/65 Baseline)] Blood Pressure 104/49 Blood Pressure Position Supine [] General: Alert, Oriented x3, Cooperative HEENT: Atraumatic, PERRLA, EOMI, Normocephalic, Neck: Supple, No JVD, Negative Carotid Bruits Lungs: Diminished breath sounds bibasally, no wheeze or crackles. on 4L of oxygen Cardiovascular: Normal S1, Normal S2, No murmurs, - - Atrial fibrillation, rate controlled Abdomen: Bowel Sounds Present, Soft, Non Tender, mild abdominal distension, Obese, abdominal wall Hernia Extremities: No clubbing, No cyanosis, Capillary Refill Less than 3 Seconds, bilateral nonpitting 1+ Edema of LEs. Skin: No rashes, No breakdown Musculoskeletal: No Tenderness to Palpation of Joints or Extremities Neurological: Cranial nerves II-XII grossly intact, Neuro grossly intact Of note, patient also had low blood pressure during the admission and so his lisinopril was discontinued permanently. He is to take metoprolol 12.5mg bid for Afib, and this will also help with hypertension. Rest of plan as above. He is to follow-up with his primary care doctor and cardiology as well as pulmonology. - Physical Exam Vital Signs Temp Pulse Resp BP Pulse Ox 98.2 F 79 16 104/49 L 94 05/31/19 11:13 05/31/19 11:13 05/31/19 11:13 05/31/19 11:13 05/31/19 11:13 Oxygen Flow Rate (L/min) [2] 2 Oxygen Flow Rate (L/min) [1 ( 2 Initial Baseline)] Oxygen Flow Rate (L/min) 4 Oxygen Delivery Method [3] Nasal Cannula Oxygen Delivery Method [2] Nasal Cannula Oxygen Delivery Method [1 ( Nasal Cannula Initial Baseline)] Oxygen Delivery Method Nasal Cannula Weight: 233 lb 14.567 oz Body Mass Index (BMI) 28.5 Finger Stick Blood Glucose 192 Intake and Output for Last 24 Hours 05/29/19 05/30/19 05/31/19 23:59 23:59 23:59 Intake Total 1060 / 1060 950 / 950 60 / 60 Output Total 1350 / 1350 1350 / 1350 375 / 375 Balance -290 / -290 -400 / -400 -315 / -315 Microbiology Past 72 Hours 05/27/19 11:10 Urine Culture - Preliminary Urine Catheter - Avila Pseudomonas aeroginosa Proteus mirabilis Enterococcus faecalis Staphylococcus aureus Discharge Diet: Low fat/ Low Cholesterol Call your doctor if you observe: Fever of 101 or Higher, Shortness of breath, Dizziness, Swelling in the ankles Home Medications: Medications to take at Discharge Albuterol Aerosols [Ventolin Aerosols] 2.5 mg INHALATION Q4H PRN PRN 05/27/19 Atorvastatin Calcium 1 tab PO DAILY 05/27/19 Budesonide Aerosol [Pulmicort Respules] 1 inhaler INHALATION BID 05/27/19 Furosemide [Lasix] 40 mg PO BID 05/27/19 Glycopyrrolate/Formoterol Fum [Bevespi Aerosphere Inhaler] 2 puff INHALATION Q12H 05/27/19 Ipratropium/Albuterol Sulfate [Duoneb] 3 ml INHALATION Q4H.RT 05/27/19 L. Acidophilus/L.bulgaricus [Lactobacillus Tablet] 1 ea PO DAILY 05/27/19 Lutein Extract/Zeaxanthin Ext [Lutein 15 mg Softgel] 1 ea PO TUFR 05/27/19 Multivitamin [Daily Value] 1 ea PO DAILY 05/27/19 [place]-3 Fatty Acids/Fish Oil [Fish Oil 1,000 mg Capsule] 1 ea PO DAILY 05/27/19 Ondansetron HCl [Zofran] 4 mg PO Q6H PRN 05/27/19 Ranitidine [Zantac] 75 mg PO DAILY 05/27/19 Sertraline HCl [Zoloft] 25 mg PO DAILY 05/27/19 Apixaban [Eliquis] 2.5 mg PO BID #60 tab 05/31/19 Metoprolol Tartrate [Lopressor (beta ximena)] 12.5 mg PO BID #30 tab 05/31/19 Following Prescrptions Were Given to Patient: Apixaban [Eliquis] 2.5 mg PO BID #60 tab Transmission Status: [facility] Metoprolol Tartrate [Lopressor (beta ximena)] 12.5 mg PO BID #30 tab Transmission Status: [facility] Primary Care Physician: Heladio Rios MD [Primary Care Provider] - Please follow up with your Primary Care Physician in: one week Please Follow Up With: Eugenio Canales MD When: one week Please Follow Up With: Mathieu Handy MD When: 1-2 weeks Patient Instructions: Thoracentesis Disposition: [facility] facility Minutes spent on discharge:: 40 Patient Condition:: Stable Medical Necessity - Tobacco Use Smoking Status: Former smoker Meaningful Use Info Meaningful Use Diagnoses (Choose all that apply): CHF - CHF JOAN/ARB ordered at discharge?: No Reason JOAN/ARB not ordered?: Hypotension Documented LVEF (%): 53 Code Visit Inpatient E&M: 33443 Disch Hosp
[2019-05-31] MEDS: Famotidine 20 MG Tablet PO (11:17)
[2019-05-31] MEDS: APIXABAN 2.5 MG TABLET PO (11:17)
--- NOTE | 2019-05-31 12:57 | CASEMGMT ---
Patient is ready for discharge back to [facility]. SCOTTIE faxed orders to [facility]. SCOTTIE called [facility] to arrange transportation as patient has [facility]. 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 SCOTTIE notified RN, special education secretary, and Maggie at [facility]. Plan: d/c back to [facility] under skilled level of care. He is a residential resident of [facility]. Rae ARAUJO MSW
--- NOTE | 2019-05-31 13:42 | NURSING ---
[place] [place] notified of need to DC lisinopril per Dr. Horn.
== END 2019-05-31 13:05 | disposition skilled nursing facility (03) | DRG 187 ==
LOC: ED 11:21 → PCU 16:33
PROVIDERS: Nurse Practitioner Family; Admitting Provider Student in an Organized Health Care Education/Training Program; Emergency Provider Emergency Medicine; Family Provider Family Medicine; PCP Family Medicine; Referring Provider Student in an Organized Health Care Education/Training Program; Visit Provider Student in an Organized Health Care Education/Training Program
DX: J90 Pleural effusion, not elsewhere classified (principal); N39.0 Urinary tract infection, site not specified; J96.11 Chronic respiratory failure with hypoxia; I31.3 Pericardial effusion (noninflammatory); C61 Malignant neoplasm of prostate; I48.91 Unspecified atrial fibrillation; B96.5 Pseudomonas (aeruginosa) (mallei) (pseudomallei) as the cause of diseases classified elsewhere; B96.4 Proteus (mirabilis) (morganii) as the cause of diseases classified elsewhere; R53.81 Other malaise; F32.9 Major depressive disorder, single episode, unspecified; E78.5 Hyperlipidemia, unspecified; R06.89 Other abnormalities of breathing; F10.20 Alcohol dependence, uncomplicated; Z92.21 Personal history of antineoplastic chemotherapy; Z92.3 Personal history of irradiation; Z87.891 Personal history of nicotine dependence; Z85.118 Personal history of other malignant neoplasm of bronchus and lung; Z99.81 Dependence on supplemental oxygen; Z85.46 Personal history of malignant neoplasm of prostate; Z87.440 Personal history of urinary (tract) infections; J44.9 Chronic obstructive pulmonary disease, unspecified; I11.0 Hypertensive heart disease with heart failure; I50.9 Heart failure, unspecified
CPT/HCPCS: 32555; 36415; 71045; 71046; 71275; 74177; 80048; 80053; 81001; 83690; 83735; 83880; 84443; 84484; 85025; 85027; 85610; 85730; 87077; 87086; 87088; 87186; 93005; 93017; 93306; 93350; 94640; 97110; 97162; 97166; 97530; 99283; 99406; J7030; J7040; Q9957; Q9967; A4216; C8928; C8929

== ENCOUNTER 2019-06-22 10:40 | Inpatient (IN) | payer MEDICARE, SELFPAY ==
[2018-08-07 14:15] VITALS: BMI 30.4
[2019-05-27 17:34] VITALS: BMI 28.5
[2019-06-22] VITALS (14 sets, daily range): BP systolic 106–155; BP diastolic 66–86; PULSE 62–106; RESP 16–23; TEMP 36.5–36.8; O2SAT 91–99; BMI 29.5; BMI 28.1
--- NOTE | 2019-06-22 10:55 | RAD_ITS ---
STUDY: X-RAY CHEST REASON FOR EXAM: Male, 83 years old. Shortness of breath. TECHNIQUE: Single AP portable view of the chest. COMPARISON: Comparison is made with prior examination dated May 29, 2019. FINDINGS: EKG electrodes are seen. Since prior study, there has been progressive pleural parenchymal changes at left lung base with underlying mass lesion. Increased markings are also seen in the right upper lobe as well as at the right lung base. These are unchanged. Pleural thickening in the right hemithorax. Normal size heart. Normal mediastinum and brad. Normal visualized pulmonary arteries. Normal visualized aortic arch and descending thoracic aorta. There are diffuse degenerative changes of the visualized thoracic spine. Focal sclerotic lesion is seen along the inferior aspect of the left scapula. There is degenerative osteoarthritis of the bilateral shoulders. There is no demonstrated abnormality of the visualized soft tissue structures of the upper abdomen. RAD/Chest 1 View (Portable) IMPRESSION: Since prior study, there is been mild to moderate degree of progressive pleural parenchymal changes at the left lung base. Electronically Signed: Momo Burns, at 11:29 EDT , Service support ,
--- NOTE | 2019-06-22 10:55 | EKG12_ITS ---
Test Reason : SOB Blood Pressure : / mmHG Vent. Rate : 078 BPM Atrial Rate : 278 BPM P-R Int : 000 ms QRS Dur : 094 ms QT Int : 380 ms P-R-T Axes : 042 082 -63 degrees QTc Int : 433 ms Atrial flutter with variable A-V block with premature ventricular or aberrantly conducted complexes Incomplete right bundle branch block Abnormal ECG Confirmed by ROWAN STYLES, ERIN ([id number]), rewrite editor AGNES MARCELINO ([id number] on 06/25/2019 11:40:32 AM Referred By: Donita Aguilar Confirmed By:ERIN DONAHUE MD
[2019-06-22] MEDS: Ipratropium/Albuterol Sulfate 3 ML AMPUL.NEB INHALATION ×2 (11:16→18:41)
[2019-06-22 11:25] LABS: Absolute Lymphocyte Count 0.58 X10^3/uL (0.83-4.51); Absolute Neutrophil Count 4.5 X10^3/uL (2.0-7.7); Basophil# 0.03 X10^3/uL; Basophil% 0.5 % (0-1); Eosinophil# 0.11 X10^3/uL; Eosinophils% 1.9 % (0-5); Hematocrit 40.2 % (40-54); Hemoglobin 12.7 g/dL (13.0-16.5); Lymphocyte # 0.58 X10^3/ul (4.0); Mean Corp Hgb Conc 31.6 g/dL (32-36); Mean Corpuscular Hgb 30.3 pg (27.0-32.0); Mean Corpuscular Volume 95.9 fL (80-94); Mean Platelet Vol. 8.8 fl (6.2-12.0); Monocyte# 0.55 X10^3/uL; Monocyte% 9.5 % (0-10); NRBC Flagged by Analyzer 0 % (0-5); Neutrophil # 4.51 X10^3/uL (2.7-7.7); Neutrophil % 77.8 % (47-70); POSITIVE DIFFERENTIAL YES; Platelet Count 320 K/mm3 (150-450); RBC Distribution Width CV 13.7 % (11.6-14.6); RBC Distribution Width SD 48.3 fl (35.1-43.9); Red Blood Count 4.19 M/mm3 (4.6-6.2); White Blood Count 5.8 K/mm3 (4.4-11.0)
[2019-06-22 11:27] LABS: Differential Indicated SCAN CRITERIA MET
[2019-06-22] MEDS: MethylPREDNISolone 125 MG/2 ML Vial IV (11:58)
[2019-06-22 12:10] LABS: Anisocytosis 1+; Platelet Estimate ADEQUATE (ADEQ); Red Cell Morphology N CHROM NORMAL (NORM C&C)
[2019-06-22 12:24] LABS: Anion Gap 1 (5-15); BUN 21 mg/dL (7-18); BUN/Creat Ratio 21.8 RATIO (10-20); Chloride 94 mmol/L (98-107); Creatinine, Serum 0.96 mg/dL (0.70-1.30); EST Glomerular Filtration Rate 80 mL/min (>60); Est Glom Filt Rate - Afr Amer 96 mL/min (>60); Estimated Creatinine Clearance 74.09 ml/min; Glucose 95 mg/dL (74-106); Sodium Level 133 mmol/L (136-145)
[2019-06-22 12:29] LABS: BNP,B-Type NATRIURETIC PEPTIDE 132.7 pg/mL (0-100)
--- NOTE | 2019-06-22 12:34 | ED.VISSUMM ---
- ER Visit Summary Date of Service: 06/22/19 Chief Complaint: [Shortness of breath] History of Present Illness: The patient is a 83 M [presents to the emergency department with increasing shortness of breath over the last month. Patient had somewhat of a cough but nonproductive. He denies any fevers. He denies any chest pain. Patient does describe some swelling in his legs. Patient presents via EMS from retirement today. Today at the retirement he was noted to have low blood pressures with systolics in the 90s and also increased hypoxemia with pulse ox in the mid 80s on his normal 2 L. Patient was bumped up to 3 L and continued to be hypoxic therefore was referred to the emergency department. She does have history of COPD and history of lung cancer. Patient with history of A. fib.] Physical Examination: [HEENT-PERRLA, EOMI. Cranial nerves II through XII grossly intact. TMs clear. Mucous membranes moist. No adenopathy. Cardiovascular-regular rate and rhythm without murmur or ectopy Lungs-patient With mild conversational dyspnea and tachypnea. Patient has Rales noted in the bases left greater than right with expiratory wheezes bilaterally. Abdomen-normoactive bowel sounds, soft, nontender, no rebound or rigidity, no peritoneal signs. Extremities-intact ?4, normal range of motion, normal pulses, atraumatic. Patient has +2 edema both lower extremities.] Test Results: [KG obtained on arrival showed atrial flutter with variable block. Ventricular response was 78 bpm. CBC with differential showed a white count of 5.8, hemoglobin 12.7, hematocrit 40, placed 320. Chemistries unremarkable. Troponin was less than 0.015. Chest x-ray shows progressive left lung parenchymal pleural changes that are mildly to moderately increased from prior study.] Emergency Department Course and Treatment: [Patient placed on 4 L O2 and was given albuterol and Atrovent aerosols as well as Solu-Medrol 125 mg IV.] Treatment Plan: [Admit for further treatment of his hypoxemia and suspected COPD exacerbation.] Disposition: [Admit] Impression: [Dyspnea CP exacerbation Left pleural effusion] This note was generated with [employer] dictation software. It may contain incorrect words, spelling, and punctuation that were not noted in review of the chart prior to signing ED Disposition - Plan for ED Patient: Referrals: Heladio Rios MD [Primary Care Provider] -
--- NOTE | 2019-06-22 13:19 | PCM.HP.STD ---
Problem List (1) Atrial fibrillation Status: Chronic Qualifiers: Atrial fibrillation type: paroxysmal Qualified Code(s): I48.0 - Paroxysmal atrial fibrillation (2) COPD Status: Chronic (3) prostate cancer Status: Chronic Comment: status post radiation (4) Alcoholism Status: Chronic (5) Hypoxia Status: Chronic (6) Tobacco abuse Status: Resolved (7) Urinary retention Status: Chronic (8) Non-small cell lung cancer (NSCLC) Status: Chronic Qualifiers: (9) Pleural effusion on left Status: Chronic (10) Atelectasis of left lung Status: Chronic History of Present Illness Date of Admission: 06/22/19 Chief Complaint: Increased shortness of breath. The patient is a 83 year old M who presents from SNF due to increased shortness of breath. Patient has required increased supplemental oxygen at SNF and noted to be hypoxic on baseline 2 L nasal cannula. Patient denies cough, fever, chills. He reports increased abdominal swelling and lower extremity edema. He denies chest pain, palpitations or other complaints. He follows with Dr. Handy, pulmonary medicine and had recent follow-up at the end of May 2019. There were no new concerns at that time. He complains of abdominal fullness which he complained of during recent admission as well and CT of abdomen and pelvis was benign. He denies constipation or diarrhea. He has a past medical history of chronic hypoxic respiratory failure wearing 2 L nasal cannula as needed, COPD, chronic left pleural effusion, history of non-small cell lung cancer, chronic urinary retention, history of prostate cancer, chronic diastolic CHF, chronic debility, history of alcohol and tobacco abuse, hypertension, hyperlipidemia, depression. Past Medical History Past Medical History (Chronic Problems): Chronic Problems (Last Reviewed 06/13/19 @ 12:02 by MARCY Benítez) Atrial fibrillation (Chronic) COPD (Chronic) prostate cancer (Chronic) status post radiation Alcoholism (Chronic) Hypoxia (Chronic) Urinary retention (Chronic) Non-small cell lung cancer (NSCLC) (Chronic) Pleural effusion on left (Chronic) Atelectasis of left lung (Chronic) Medical History: Medical History (Last Reviewed 06/13/19 @ 12:02 by JANNA BenítezC) Abnormal prostate biopsy R89.7 05/04/2006 CKD (chronic kidney disease) N18.9 COPD (chronic obstructive pulmonary disease) J44.9 GERD (gastroesophageal reflux disease) K21.9 H/O tooth extraction K08.409 x9 teeth 07/2018 H/O urinary retention Z87.898 History of E. 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 Allergies doxycycline Allergy (Verified 06/13/19 10:54) pt is unsure tetracycline Allergy (Verified 06/13/19 10:54) Rash venom-honey bee [bee venom (honey bee)] Allergy (Verified 06/13/19 10:54) Swelling Home Medications: Ambulatory Orders Medication Instructions Recorded Albuterol Aerosols [Ventolin 2.5 mg INHALATION Q4H PRN PRN 05/27/19 Aerosols] Atorvastatin Calcium 1 tab PO DAILY 05/27/19 Budesonide Aerosol [Pulmicort 1 inhaler INHALATION BID 05/27/19 Respules] Furosemide [Lasix] 40 mg PO DAILY 05/27/19 Glycopyrrolate/Formoterol Fum 2 puff INHALATION Q12H 05/27/19 [Bevespi Aerosphere Inhaler] Ipratropium/Albuterol Sulfate 3 ml INHALATION Q4H.RT PRN 05/27/19 [Duoneb] L. Acidophilus/L.bulgaricus 1 ea PO DAILY 05/27/19 [Lactobacillus Tablet] Lutein Extract/Zeaxanthin Ext 1 ea PO TUFR 05/27/19 [Lutein 15 mg Softgel] Ondansetron HCl [Zofran] 4 mg PO Q6H PRN 05/27/19 Ranitidine [Zantac] 75 mg PO DAILY 05/27/19 Sertraline HCl [Zoloft] 50 mg PO DAILY 05/27/19 Apixaban [Eliquis] 2.5 mg PO BID #60 tab 05/31/19 Metoprolol Tartrate [Lopressor 12.5 mg PO BID #30 tab 05/31/19 (beta ximena)] Acetaminophen [Tylenol] 650 mg PO Q6H PRN PRN 06/22/19 Albuterol Inhaler [Ventolin Hfa 2 puff INHALATION Q4H PRN PRN 06/22/19 (SP)] Bisacodyl [Dulcolax] 10 mg RECTAL DAILY PRN PRN 06/22/19 Calcium Carbonate/Simethicone 1 - 2 ea PO Q6H PRN PRN 06/22/19 [Joan-Pixley Heartburn+Gas] Citric AC/Gluconolact/Mag Carb 30 ml IR DAILY 06/22/19 [Renacidin Irrigation Solution] Ergocalciferol [Vitamin D] 50,000 unit PO WE 06/22/19 Guaifenesin [Mucinex] 600 mg PO BID PRN PRN 06/22/19 Guaifenesin [Robafen] 10 ml PO Q6H PRN 06/22/19 Loperamide [Imodium] 2 mg PO PRN PRN 06/22/19 Magnesium Hydroxide [Milk Of 30 ml PO DAILY PRN PRN 06/22/19 Magnesia] Na Phos,M-B/Na Phos,Di-Ba [Fleet 1 bottle RECTAL DAILY PRN PRN 06/22/19 Enema] Naphazoline HCl/Glycerin [Clear 2 drp OP Q4H PRN 06/22/19 Eyes Redness Relief Drop] Olopatadine HCl [Patanol] 1 drp EACH EYE BID PRN 06/22/19 Pectin [Throat Drops] 1 tab PO Q2H PRN 06/22/19 Peg 400/Hypromellose/Glycerin 2 drp OP Q2H PRN 06/22/19 [Artificial Tears] Phenazopyridine HCl 95 mg PO DAILY PRN 06/22/19 Polyethylene Glycol 3350 [Miralax] 17 gm PO DAILY PRN 06/22/19 Saliva Stimulant [Biotene 15 ml MM Q8H PRN PRN 06/22/19 Moisturizing Mouth] Surgical History: no surgical history Psychiatric History: No pertinent psych hx Lives: Shelter Smoking Status: Former smoker Alcohol: Sober Drugs: None - *Family History Paternal Family History: Family History (Last Reviewed 06/22/19 @ 13:24 by MARCY Neri) Father Brain cancer Mother Cervical cancer History Items: - - brain tumor Maternal Family History: Family History (Last Reviewed 06/22/19 @ 13:24 by MARCY Neri) Father Brain cancer Mother Cervical cancer History Items: Cancer - cervical, Hypertension Review of Systems Constitutional: Denies: Chills, Fever, Weight Change HEENT: Denies: Head Aches, Sinus Congestion, Sinus Drainage Cardiovascular: Reports: Edema. Denies: Chest Pain, Light Headedness, Palpitations, Syncope Respiratory: Reports: Shortness of Breath, Wheezing. Denies: Cough, Sputum production Gastrointestinal: Reports: - - Abdominal bloating.. Denies: Abdominal Pain, Nausea, Vomiting Genitourinary: Reports: Retention - Chronic, - - Chronic lal. Denies: Dysuria Musculoskeletal: Denies: Joint Pain, Joint Tenderness Skin: Denies: Rash, Wounds Neurological: Denies: Numbness, Tingling, Focal weakness Psychiatric: Denies: Anxiety, Depression, Homicidal Ideations, Suicidal Ideations Hematologic/ Lymphatic: Denies: Easy Bruising, Easy Bleeding VTE Information - Inpt Only VTE Present on Admission: No VTE Mechan Device Prophylaxis: None VTE Pharm Prophylaxis ordered?: Yes - Physical Exam General: Alert, Oriented x3, Cooperative HEENT: Atraumatic, PERRLA, EOMI, Normocephalic Neck: Supple, No JVD, Negative Carotid Bruits Lungs: Diminished, Wheezes Cardiovascular: - - Atrial flutter, rate controlled Abdomen: Bowel Sounds Present, Soft, Non Tender, Non-Distended, Obese Extremities: No clubbing, No cyanosis, Edema - +2 bilateral lower extremities. Skin: No rashes, No breakdown Musculoskeletal: No Tenderness to Palpation of Joints or Extremities Neurological: Cranial nerves II-XII grossly intact, Neuro grossly intact Psych/Mental Status: Normal Affect, Appropriate Vital Signs Temp Pulse Resp BP Pulse Ox 98.3 F 74 19 H 131/86 H 92 06/22/19 13:00 06/22/19 13:00 06/22/19 13:00 06/22/19 13:00 06/22/19 13:00 Oxygen Flow Rate (L/min) 4 Oxygen Delivery Method Nasal Cannula Weight: 242 lb 11.663 oz Body Mass Index (BMI) 29.5 Finger Stick Blood Glucose 192 Laboratory Tests Past 24 Hrs 06/22/19 06/22/19 06/22/19 11:15 11:15 11:15 WBC 5.8 RBC 4.19 L Hgb 12.7 L Hct 40.2 MCV 95.9 H MCH 30.3 MCHC 31.6 L RDW Std Deviation 48.3 H RDW Coeff of Jarvis 13.7 Plt Count 320 MPV 8.8 Immature Gran % (Auto) 0.300 Neut % (Auto) 77.8 H Lymph % (Auto) 10.0 L [place] % (Auto) 9.5 Eos % (Auto) 1.9 Baso % (Auto) 0.5 Absolute Neuts (auto) 4.5 Absolute Lymphs (auto) 0.58 L Nucleated RBC % 0 Differential Comment Platelet Estimate ADEQUATE RBC Morphology N CHROM Anisocytosis 1+ Sodium Cancelled Potassium Cancelled Chloride Cancelled Carbon Dioxide Cancelled Anion Gap Cancelled BUN Cancelled Creatinine Cancelled Estim Creat Clear Calc Cancelled Est GFR (MDRD) Af Amer Cancelled Est GFR (MDRD) Non-Af Cancelled BUN/Creatinine Ratio Cancelled Glucose Cancelled Calcium Cancelled Troponin I Cancelled B-Natriuretic Peptide 132.7 H 06/22/19 11:55 WBC RBC Hgb Hct MCV MCH MCHC RDW Std Deviation RDW Coeff of Jarvis Plt Count MPV Immature Gran % (Auto) Neut % (Auto) Lymph % (Auto) [place] % (Auto) Eos % (Auto) Baso % (Auto) Absolute Neuts (auto) Absolute Lymphs (auto) Nucleated RBC % Differential Comment Platelet Estimate RBC Morphology Anisocytosis Sodium 133 L Potassium 4.0 Chloride 94 L Carbon Dioxide 38.0 H Anion Gap 1 L BUN 21 H Creatinine 0.96 Estim Creat Clear Calc 74.09 Est GFR (MDRD) Af Amer 96 Est GFR (MDRD) Non-Af 80 BUN/Creatinine Ratio 21.8 H Glucose 95 Calcium 9.0 Troponin I < 0.015 B-Natriuretic Peptide Assessment/Plan All Active Problems (Last Reviewed 06/13/19 @ 12:02 by Laura Allan, RENE-C) Tobacco abuse (Resolved) Sepsis due to Escherichia coli (Resolved) 1. Acute on chronic hypoxic and hypercapnic respiratory failure secondary to acute on chronic COPD exacerbation and increasing chronic/recurrent left pleural effusion-most recent thoracentesis February 2018 pleural fluid found to be exudative, cytology negative for malignancy. Chest x-ray on admission shows mild to moderate degree of progressive left lung base pleural effusion. Patient with increased oxygen requirements and wheezing on exam. Denies cough, fever, chills. Dr. Mina, pulmonary medicine consulted to assess if left pleural effusion needs intervention. Continue supplement oxygen to maintain O2 sat above 90%. IV Solu-Medrol. Albuterol and DuoNeb aerosols. 2. Chronic diastolic CHF-recent echocardiogram May 28, 2019 demonstrated an EF of 53%, mild tricuspid valve insufficiency, pulmonary artery systolic pressure 50mmhg. BNP 132. Patient does have pitting lower extremity edema however do not feel acute CHF is present. Continue home Lasix regimen. Cesario wraps bilateral lower extremities. 3. Paroxysmal atrial fibrillation/a flutter-EKG in ER atrial flutter with controlled rate. Hold Eliquis in case plans for thoracentesis in the future. Continue beta-ximena regimen. 4. History of recurrent UTIs due to chronic urinary retention with chronic Lal-history of prostate cancer as well. 5. History of non-small cell right lung cancer-following with Dr. Teran. Completed radiation August 2018. 6. Hypertension-stable, continue home lisinopril regimen. 7. Hyperlipidemia-continue statin. 8. Chronic debility-mostly wheelchair-bound. Resides at SNF. PT/OT. 9. Depression-continue sertraline regimen. 10. History of alcohol and tobacco abuse-denies current use. Encouraged continued cessation. 11. Chronic macrocytic anemia-at baseline, trend CBC. DVT prophylaxis-Hold Eliquis, Lovenox subcu CODE STATUS: Discussed with patient. care home paperwork shows DNR CC however patient would like to be DNR CCA, no intubation. This patient was seen by MARCY Neri under the supervision of Dr. Aguilar.
--- NOTE | 2019-06-22 13:20 | CPS ---
ABG results given to Dr. Key.
[2019-06-22 13:21] LABS: Allen Test POS; Base Excess 9 mmol/L (-2 to +2); Bicarbonate 34.3 mmol/L (22-26); Blood Gas Specimen Type ART; O2 Delivery Device Nasal Can; PO2 66 mmHG (75-100); SITE R Radial; SO2 91 % (95-99); Time Given 1305; Total Carbon Dioxide 36 mmol/L; pCO2 63.7 mmHg (35-45); pH 7.34 (7.35-7.45)
--- NOTE | 2019-06-22 13:21 | ED.RN ---
AFSHIN JARAMILLO UPDATED ON PT'S ADMISSION TO [facility]
--- NOTE | 2019-06-22 15:14 | CPS ---
attempted to start aerosol, medication unavailable in accudose
[2019-06-22] MEDS: Enoxaparin 100 MG/ML Syringe SC (17:49)
[2019-06-22] MEDS: Atorvastatin Calcium 10 MG Tablet PO (21:22)
[2019-06-22] MEDS: Metoprolol Tartrate 25 MG Tablet 12.5 MG PO (21:23)
[2019-06-22] MEDS: Albuterol 2.5 MG/3 ML VIAL.NEB. INHALATION (21:26)
--- NOTE | 2019-06-22 21:48 | NURSING ---
JOAN wraps to BLE removed to allow circulation to restore;rewrapped w/jossue feet+ankles using narrower JOAN. Larger JOAN applied to B calves. Pt trevor well. assisted back to bed, RT called for PRN aerosol for wheezing
[2019-06-23] VITALS (19 sets, daily range): BP systolic 98–131; BP diastolic 53–70; PULSE 69–106; RESP 16–22; TEMP 36.4–36.8; O2SAT 91–96
[2019-06-23] MEDS: Furosemide 40 MG/4 ML Vial IV (01:45)
[2019-06-23] MEDS: 0.9% NaCl Peripheral Flush Adult/Peds IV ×4 (01:45→21:37)
--- NOTE | 2019-06-23 07:08 | PCM.CONS.PUL ---
Reason for Consult Date of Consultation: 06/23/19 Reason for Consultation: Recurrent pleural effusion History of Present Illness: The patient is an 83-year-old male, with a history as outlined below, who presented to the emergency department on June 22 with complaints of gradually progressive shortness of breath over the last month. The patient does have a history of non-small cell lung cancer. Due to being a poor surgical candidate, the patient was referred to radiation therapy, which was completed in August 2018. The patient has a known history of COPD, with pulmonary function studies completed in July 2018 revealing evidence of a very severe mixed ventilatory defect with symmetric reduction in diffusing capacity. The patient has a smoking history that includes upwards of 1 pack/day x 60 years. The patient also has chronic hypoxemic respiratory failure with a 2 L/min baseline requirement. Surface echocardiogram from May 2019 revealed normal LV size with an ejection fraction of 55%. Pulmonary artery systolic pressure was estimated to be 50 mmHg. The patient has had issues in the past with a recurrent left-sided pleural effusion. He has undergone a multitude of thoracenteses, a total of 5, dating back to July 2018. He was last admitted to the hospital May 27, during which time, a CTA chest again demonstrated a loculated left-sided pleural effusion. Pleural fluid cytology dated July 2018, December 2018 and February 2019 were all negative for malignant cells. Of note, the patient was just evaluated by our nurse practitioner in the pulmonary medicine office on June 13. At that time, the patient was documented to be stable on 2 to 3 L/min of supplemental oxygen via nasal cannula. He was noted to be utilizing DuoNeb's and Pulmicort breathing treatments in his home environment. On presentation to the emergency department, the patient was noted to be afebrile and hemodynamically stable. He was requiring 4 L/min of supplemental oxygen to maintain appropriate saturations. Laboratory evaluation revealed no evidence of a leukocytosis. Chemistry profile was largely unremarkable. Troponin was negative and BNP was only mildly elevated to 132. Plain film chest x-ray reveals what appears to be a loculated left-sided pleural effusion along with blunting of the right costophrenic angle. The patient was subsequently admitted to the progressive care unit for treatment of a COPD exacerbation in the setting of a left-sided pleural effusion. Past Medical History Past Medical History (Chronic Problems): Chronic Problems (Last Reviewed 06/13/19 @ 12:02 by MARCY Benítez) Atrial fibrillation (Chronic) COPD (Chronic) prostate cancer (Chronic) status post radiation Alcoholism (Chronic) Hypoxia (Chronic) Urinary retention (Chronic) Non-small cell lung cancer (NSCLC) (Chronic) Pleural effusion on left (Chronic) Atelectasis of left lung (Chronic) Medical History: Medical History (Last Reviewed 06/13/19 @ 12:02 by MARCY Benítez) Abnormal prostate biopsy R89.7 05/04/2006 CKD (chronic kidney disease) N18.9 COPD (chronic obstructive pulmonary disease) J44.9 GERD (gastroesophageal reflux disease) K21.9 H/O tooth extraction K08.409 x9 teeth 07/2018 H/O urinary retention Z87.898 History of E. 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 Allergies doxycycline Allergy (Verified 06/13/19 10:54) pt is unsure tetracycline Allergy (Verified 06/13/19 10:54) Rash venom-honey bee [bee venom (honey bee)] Allergy (Verified 06/13/19 10:54) Swelling Home Medications: Ambulatory Orders Medication Instructions Recorded Albuterol Aerosols [Ventolin 2.5 mg INHALATION Q4H PRN PRN 05/27/19 Aerosols] Atorvastatin Calcium 1 tab PO DAILY 05/27/19 Budesonide Aerosol [Pulmicort 1 inhaler INHALATION BID 05/27/19 Respules] Furosemide [Lasix] 40 mg PO DAILY 05/27/19 Glycopyrrolate/Formoterol Fum 2 puff INHALATION Q12H 05/27/19 [Bevespi Aerosphere Inhaler] Ipratropium/Albuterol Sulfate 3 ml INHALATION Q4H.RT PRN 05/27/19 [Duoneb] L. Acidophilus/L.bulgaricus 1 ea PO DAILY 05/27/19 [Lactobacillus Tablet] Lutein Extract/Zeaxanthin Ext 1 ea PO TUFR 05/27/19 [Lutein 15 mg Softgel] Ondansetron HCl [Zofran] 4 mg PO Q6H PRN 05/27/19 Ranitidine [Zantac] 75 mg PO DAILY 05/27/19 Sertraline HCl [Zoloft] 50 mg PO DAILY 05/27/19 Apixaban [Eliquis] 2.5 mg PO BID #60 tab 05/31/19 Metoprolol Tartrate [Lopressor 12.5 mg PO BID #30 tab 05/31/19 (beta ximena)] Acetaminophen [Tylenol] 650 mg PO Q6H PRN PRN 06/22/19 Albuterol Inhaler [Ventolin Hfa 2 puff INHALATION Q4H PRN PRN 06/22/19 (SP)] Bisacodyl [Dulcolax] 10 mg RECTAL DAILY PRN PRN 06/22/19 Calcium Carbonate/Simethicone 1 - 2 ea PO Q6H PRN PRN 06/22/19 [[place] Heartburn+Gas] Citric AC/Gluconolact/Mag Carb 30 ml IR DAILY 06/22/19 [Renacidin Irrigation Solution] Ergocalciferol [Vitamin D] 50,000 unit PO WE 06/22/19 Guaifenesin [Mucinex] 600 mg PO BID PRN PRN 06/22/19 Guaifenesin [Robafen] 10 ml PO Q6H PRN 06/22/19 Loperamide [Imodium] 2 mg PO PRN PRN 06/22/19 Magnesium Hydroxide [Milk Of 30 ml PO DAILY PRN PRN 06/22/19 Magnesia] Na Phos,M-B/Na Phos,Di-Ba [Fleet 1 bottle RECTAL DAILY PRN PRN 06/22/19 Enema] Naphazoline HCl/Glycerin [Clear 2 drp OP Q4H PRN 06/22/19 Eyes Redness Relief Drop] Olopatadine HCl [Patanol] 1 drp EACH EYE BID PRN 06/22/19 Pectin [Throat Drops] 1 tab PO Q2H PRN 06/22/19 Peg 400/Hypromellose/Glycerin 2 drp OP Q2H PRN 06/22/19 [Artificial Tears] Phenazopyridine HCl 95 mg PO DAILY PRN 06/22/19 Polyethylene Glycol 3350 [Miralax] 17 gm PO DAILY PRN 06/22/19 Saliva Stimulant [Biotene 15 ml MM Q8H PRN PRN 06/22/19 Moisturizing Mouth] Surgical History: no surgical history Psychiatric History: No pertinent psych hx Lives: Retirement Smoking Status: Former smoker Alcohol: Sober Drugs: None - *Family History Paternal Family History: Family History (Last Reviewed 06/22/19 @ 13:24 by MARCY Nrei) Father Brain cancer Mother Cervical cancer History Items: - - brain tumor Maternal Family History: Family History (Last Reviewed 06/22/19 @ 13:24 by MARCY Neri) Father Brain cancer Mother Cervical cancer History Items: Cancer - cervical, Hypertension Review of Systems Constitutional: Denies: Chills, Fever Eyes: Denies: Blurred vision, Double vision HEENT: Denies: Head Aches, Sinus Congestion, Sinus Drainage Cardiovascular: Denies: Chest Pain, Palpitations Respiratory: Reports: Cough, Shortness of Breath, Wheezing Gastrointestinal: Denies: Abdominal Pain, Nausea, Vomiting Genitourinary: Denies: Dysuria Musculoskeletal: Denies: Joint Pain, Joint Tenderness Skin: Denies: Rash, Wounds Neurological: Denies: Numbness, Tingling, Focal weakness Psychiatric: Denies: Anxiety, Depression, Homicidal Ideations, Suicidal Ideations Hematologic/ Lymphatic: Reports: Anemia Objective: The patient's most recent lab work, culture data and imaging studies have all been personally reviewed. - Physical Exam General: Alert, Cooperative, No apparent distress HEENT: Atraumatic, PERRLA, Normocephalic Oral: No Gingival or Mucosal Lesions/ Ulcerations Neck: Supple, No Nodes, Trachea Midline Lungs: Diminished, Wheezes, - - Rales present in left lung base Cardiovascular: Normal S1, Normal S2, Irregular Rate Abdomen: Bowel Sounds Present, Soft, Non Tender, Obese Extremities: No cyanosis, Edema Skin: No breakdown Musculoskeletal: No Tenderness to Palpation of Joints or Extremities Lymphatic: No Cervical, Supraclavicular, or Inguinal Adenopathy Neurological: Cranial nerves II-XII grossly intact, Neuro grossly intact Psych/Mental Status: - - Patient easily goes off on tangents with conversation. Vital Signs Temp Pulse Resp BP Pulse Ox 97.8 F 88 18 103/59 L 94 06/23/19 05:30 06/23/19 05:30 06/23/19 05:30 06/23/19 05:30 06/23/19 05:30 Oxygen Flow Rate (L/min) 5 Oxygen Delivery Method Nasal Cannula Weight: 231 lb 0.711 oz Body Mass Index (BMI) 28.1 Finger Stick Blood Glucose 192 Intake and Output for Last 24 Hours 06/21/19 06/22/19 06/23/19 23:59 23:59 23:59 Intake Total 240 / 440 200 / 200 Output Total 900 / 1250 900 / 900 Balance -660 / -810 -700 / -700 Laboratory Tests Past 24 Hrs 06/22/19 06/22/19 06/22/19 11:15 11:15 11:15 WBC 5.8 RBC 4.19 L Hgb 12.7 L Hct 40.2 MCV 95.9 H MCH 30.3 MCHC 31.6 L RDW Std Deviation 48.3 H RDW Coeff of Jarvis 13.7 Plt Count 320 MPV 8.8 Immature Gran % (Auto) 0.300 Neut % (Auto) 77.8 H Lymph % (Auto) 10.0 L [place] % (Auto) 9.5 Eos % (Auto) 1.9 Baso % (Auto) 0.5 Absolute Neuts (auto) 4.5 Absolute Lymphs (auto) 0.58 L Nucleated RBC % 0 Differential Comment Platelet Estimate ADEQUATE RBC Morphology N CHROM Anisocytosis 1+ Specimen Type Sample Site pH Bicarbonate Actual POC Total CO2 Base Excess O2 Saturation ABG pCO2 ABG pO2 Brandan Test O2 Delivery Device Liter Flow Blood Gas Notified Whom Blood Gas Notified Time Sodium Cancelled Potassium Cancelled Chloride Cancelled Carbon Dioxide Cancelled Anion Gap Cancelled BUN Cancelled Creatinine Cancelled Estim Creat Clear Calc Cancelled Est GFR (MDRD) Af Amer Cancelled Est GFR (MDRD) Non-Af Cancelled BUN/Creatinine Ratio Cancelled Glucose Cancelled Calcium Cancelled Troponin I Cancelled B-Natriuretic Peptide 132.7 H 06/22/19 06/22/19 06/23/19 11:55 13:15 06:45 WBC Pending RBC Pending Hgb Pending Hct Pending MCV Pending MCH Pending MCHC Pending RDW Std Deviation Pending RDW Coeff of Jarvis Pending Plt Count Pending MPV Immature Gran % (Auto) Neut % (Auto) Lymph % (Auto) [place] % (Auto) Eos % (Auto) Baso % (Auto) Absolute Neuts (auto) Absolute Lymphs (auto) Nucleated RBC % Differential Comment Platelet Estimate RBC Morphology Anisocytosis Specimen Type ART Sample Site R Radial pH 7.34 L Bicarbonate Actual 34.3 H POC Total CO2 36 Base Excess 9 H O2 Saturation 91 L ABG pCO2 63.7 H ABG pO2 66 L Brandan Test POS O2 Delivery Device Nasal Can Liter Flow 4.0 Blood Gas Notified Whom ED MD Blood Gas Notified Time 1305 Sodium 133 L Potassium 4.0 Chloride 94 L Carbon Dioxide 38.0 H Anion Gap 1 L BUN 21 H Creatinine 0.96 Estim Creat Clear Calc 74.09 Est GFR (MDRD) Af Amer 96 Est GFR (MDRD) Non-Af 80 BUN/Creatinine Ratio 21.8 H Glucose 95 Calcium 9.0 Troponin I < 0.015 B-Natriuretic Peptide 06/23/19 06:45 WBC RBC Hgb Hct MCV MCH MCHC RDW Std Deviation RDW Coeff of Jarvis Plt Count MPV Immature Gran % (Auto) Neut % (Auto) Lymph % (Auto) [place] % (Auto) Eos % (Auto) Baso % (Auto) Absolute Neuts (auto) Absolute Lymphs (auto) Nucleated RBC % Differential Comment Platelet Estimate RBC Morphology Anisocytosis Specimen Type Sample Site pH Bicarbonate Actual POC Total CO2 Base Excess O2 Saturation ABG pCO2 ABG pO2 Brandan Test O2 Delivery Device Liter Flow Blood Gas Notified Whom Blood Gas Notified Time Sodium Pending Potassium Pending Chloride Pending Carbon Dioxide Pending Anion Gap Pending BUN Pending Creatinine Pending Estim Creat Clear Calc Est GFR (MDRD) Af Amer Pending Est GFR (MDRD) Non-Af Pending BUN/Creatinine Ratio Pending Glucose Pending Calcium Pending Troponin I B-Natriuretic Peptide Clinical Impression(s) from Imaging Studies Chest X-Ray 06/22/19 10:55 IMPRESSION: Since prior study, there is been mild to moderate degree of progressive pleural parenchymal changes at the left lung base. Electronically Signed: Momo Burns, at 11:29 EDT , Service support , Assessment/Plan All Active Problems (Last Reviewed 06/13/19 @ 12:02 by Laura Allan, RENE-C) Tobacco abuse (Resolved) Sepsis due to Escherichia coli (Resolved) RECOMMENDATIONS: 1. Continue scheduled bronchodilators as ordered. 2. Transition from IV steroids to prednisone 40 mg daily with plans to complete a 5-day burst. 3. Continue to hold Eliquis. However, I doubt that the patient will benefit significantly from repeat thoracentesis. 4. I would recommend that the patient be evaluated by thoracic surgery at some point in the future. 5. Provide patient with incentive spirometer and encourage use. 6. Wean supplemental oxygen to maintain saturations at or above 90%. IMPRESSIONS: 1. Acute on chronic hypoxemic respiratory failure/baseline severe mixed ventilatory defect/recurrent pleural effusion At his baseline, the patient requires 2 to 3 L/min of supplemental oxygen via nasal cannula. He has a history of a severe mixed ventilatory defect in the setting of an extensive smoking history, radiation treatment to the right lung and a loculated left-sided pleural effusion. The patient's left-sided effusion has been tapped a multitude of times and all 3 of his last pleural fluid cytology was reportedly negative for the presence of malignant cells. It is oftentimes very difficult to ascertain the true symptoms that is bothering the patient as he frequently goes off on tangents unrelated to the questions being posed during conversation. Nevertheless, at this time, the patient does appear to be relatively close to what his baseline respiratory status truly is. With regard to the patient's pleural effusion, given his complicated nature, he would likely benefit from being evaluated by a thoracic surgeon. I do not think that performing an additional thoracentesis at this time is likely to offer any substantial benefit to him. The patient can be continued on scheduled bronchodilators as ordered. Recommend transitioning from IV steroids to prednisone 40 mg daily with plans to complete a 5-day burst. The patient is already on a triple therapy nebulizer regimen at his custodial facility in the form of DuoNeb's and budesonide. This can be continued at discharge. 2. Chronic heart failure with preserved ejection fraction/paroxysmal atrial fibrillation Continue current medical management as tolerated. If the patient's oxygen is able to be weaned back to baseline and thoracentesis is not being considered, Eliquis can be resumed. 3. History of non-small cell lung cancer status post radiation treatment Complicates care, management, recovery and prognosis. Continue outpatient follow-up with oncology as scheduled. This note was generated with [email or web address] software. It may contain incorrect words, spelling, and punctuation that were not noted in checking the note before signing. Code Visit Inpatient E&M: 55117 Init Hosp L3
[2019-06-23 07:15] LABS: Hematocrit 36.5 % (40-54); Hemoglobin 11.8 g/dL (13.0-16.5); Mean Corp Hgb Conc 32.3 g/dL (32-36); Mean Corpuscular Hgb 30.6 pg (27.0-32.0); Mean Corpuscular Volume 94.8 fL (80-94); Mean Platelet Vol. 8.4 fl (6.2-12.0); Platelet Count 300 K/mm3 (150-450); RBC Distribution Width CV 13.3 % (11.6-14.6); RBC Distribution Width SD 45.7 fl (35.1-43.9); Red Blood Count 3.85 M/mm3 (4.6-6.2)
[2019-06-23] MEDS: Ipratropium/Albuterol Sulfate 3 ML AMPUL.NEB INHALATION ×4 (07:18→19:19)
[2019-06-23 07:35] LABS: Anion Gap 3 (5-15); BUN 22 mg/dL (7-18); BUN/Creat Ratio 24.7 RATIO (10-20); Calcium,Total 8.9 mg/dL (8.5-10.1); Chloride 94 mmol/L (98-107); Creatinine, Serum 0.89 mg/dL (0.70-1.30); EST Glomerular Filtration Rate 87 mL/min (>60); Est Glom Filt Rate - Afr Amer 105 mL/min (>60); Glucose 134 mg/dL (74-106); Potassium 4.4 mmol/L (3.5-5.1); Sodium Level 132 mmol/L (136-145)
[2019-06-23] MEDS: Metoprolol Tartrate 25 MG Tablet 12.5 MG PO ×2 (09:03→21:31)
[2019-06-23] MEDS: Sertraline 50 MG Tablet PO (09:04)
[2019-06-23] MEDS: Famotidine 20 MG Tablet 10 MG PO (09:04)
--- NOTE | 2019-06-23 15:06 | PN_ITS ---
Subjective: Patient seen and examined. Feels breathing is at his baseline. Denies current complaints. - Physical Exam General: Alert, Oriented x3, Cooperative HEENT: Atraumatic, PERRLA, EOMI, Normocephalic Neck: Supple, No JVD, Negative Carotid Bruits Lungs: Diminished, Wheezes Cardiovascular: Regular rate, Normal S1, Normal S2, No murmurs, - - Atrial flutter Abdomen: Bowel Sounds Present, Soft, Non Tender, Non-Distended, Obese Extremities: No clubbing, No cyanosis, Capillary Refill Less than 3 Seconds, Edema - Nonpitting, Cesario wraps in place Skin: No rashes, No breakdown Musculoskeletal: No Tenderness to Palpation of Joints or Extremities Neurological: Cranial nerves II-XII grossly intact, Neuro grossly intact Psych/Mental Status: Normal Affect, Appropriate Vital Signs Temp Pulse Resp BP Pulse Ox 97.5 F L 70 20 H 109/59 L 96 06/23/19 09:00 06/23/19 10:58 06/23/19 11:52 06/23/19 09:00 06/23/19 11:03 Oxygen Flow Rate (L/min) 6 Oxygen Delivery Method Nasal Cannula Weight: 231 lb 0.711 oz Body Mass Index (BMI) 28.1 Finger Stick Blood Glucose 192 Intake and Output for Last 24 Hours 06/21/19 06/22/19 06/23/19 23:59 23:59 23:59 Intake Total 240 / 440 680 / 680 Output Total 900 / 1250 1100 / 1100 Balance -660 / -810 -420 / -420 Laboratory Tests Past 24 Hrs 06/23/19 06/23/19 06:45 06:45 WBC 4.0 L RBC 3.85 L Hgb 11.8 L Hct 36.5 L MCV 94.8 H MCH 30.6 MCHC 32.3 RDW Std Deviation 45.7 H RDW Coeff of Jarvis 13.3 Plt Count 300 MPV 8.4 Sodium 132 L Potassium 4.4 Chloride 94 L Carbon Dioxide 35.0 H Anion Gap 3 L BUN 22 H Creatinine 0.89 Estim Creat Clear Calc 77.80 Est GFR (MDRD) Af Amer 105 Est GFR (MDRD) Non-Af 87 BUN/Creatinine Ratio 24.7 H Glucose 134 H Calcium 8.9 Medical Necessity - Tobacco Use Smoking Status: Former smoker Assessment/Plan All Active Problems (Last Reviewed 06/13/19 @ 12:02 by Laura Allan NP-C) Tobacco abuse (Resolved) Sepsis due to Escherichia coli (Resolved) 1. Acute on chronic hypoxic and hypercapnic respiratory failure secondary to acute on chronic COPD exacerbation and increasing chronic/recurrent left pleural effusion-most recent thoracentesis February 2018 pleural fluid found to be exudative, cytology negative for malignancy. Chest x-ray on admission shows mild to moderate degree of progressive left lung base pleural effusion. Patient with increased oxygen requirements and wheezing on exam. Denies cough, fever, chills. Dr. Mina, pulmonary medicine consulted. No plans for thoracentesis at this time. Continue supplement oxygen to maintain O2 sat above 90%. IV Solu- Medrol. Albuterol and DuoNeb aerosols. 2. Chronic diastolic CHF-recent echocardiogram May 28, 2019 demonstrated an EF of 53%, mild tricuspid valve insufficiency, pulmonary artery systolic pressure 50mmhg. BNP 132. Patient does have pitting lower extremity edema however do not feel acute CHF is present. Continue home Lasix regimen. Cesario wraps bilateral lower extremities. 3. Paroxysmal atrial fibrillation/a flutter-EKG in ER atrial flutter with controlled rate. Hold Eliquis in case plans for thoracentesis in the future. Continue beta-ximena regimen. 4. History of recurrent UTIs due to chronic urinary retention with chronic [place]-history of prostate cancer as well. 5. History of non-small cell right lung cancer-following with Dr. Teran. Completed radiation August 2018. 6. Hypertension-stable, continue home lisinopril regimen. 7. Hyperlipidemia-continue statin. 8. Chronic debility-mostly wheelchair-bound. Resides at SNF. PT/OT. 9. Depression-continue sertraline regimen. 10. History of alcohol and tobacco abuse-denies current use. Encouraged continued cessation. 11. Chronic macrocytic anemia-at baseline, trend CBC. DVT prophylaxis-Hold Eliquis, Lovenox subcu CODE STATUS: Discussed with patient. skilled nursing paperwork shows DNR CC however patient would like to be DNR CCA, no intubation. This patient was seen by Faviola Fischer NP-C under the supervision of Dr. Aguilar.
[2019-06-23] MEDS: Atorvastatin Calcium 10 MG Tablet PO (21:30)
[2019-06-23] MEDS: APIXABAN 2.5 MG TABLET PO (21:36)
[2019-06-24] VITALS (17 sets, daily range): BP systolic 99–119; BP diastolic 55–71; PULSE 69–93; RESP 14–23; TEMP 36.4–37.4; O2SAT 90–98
[2019-06-24] MEDS: Albuterol 2.5 MG/3 ML VIAL.NEB. INHALATION (01:34)
[2019-06-24 05:37] LABS: Hematocrit 35.3 % (40-54); Hemoglobin 11.2 g/dL (13.0-16.5); Mean Corp Hgb Conc 31.7 g/dL (32-36); Mean Corpuscular Volume 94.6 fL (80-94); Mean Platelet Vol. 8.5 fl (6.2-12.0); Platelet Count 301 K/mm3 (150-450); RBC Distribution Width CV 13.5 % (11.6-14.6); RBC Distribution Width SD 46.1 fl (35.1-43.9); Red Blood Count 3.73 M/mm3 (4.6-6.2); White Blood Count 6.8 K/mm3 (4.4-11.0)
[2019-06-24 05:51] LABS: Anion Gap 6 (5-15); BUN 29 mg/dL (7-18); BUN/Creat Ratio 31.8 RATIO (10-20); Calcium,Total 8.7 mg/dL (8.5-10.1); Chloride 95 mmol/L (98-107); Creatinine, Serum 0.91 mg/dL (0.70-1.30); EST Glomerular Filtration Rate 85 mL/min (>60); Est Glom Filt Rate - Afr Amer 102 mL/min (>60); Estimated Creatinine Clearance 76.09 ml/min; Glucose 135 mg/dL (74-106); Potassium 4.6 mmol/L (3.5-5.1); Sodium Level 134 mmol/L (136-145)
[2019-06-24] MEDS: Ipratropium/Albuterol Sulfate 3 ML AMPUL.NEB INHALATION ×4 (07:11→18:52)
--- NOTE | 2019-06-24 08:25 | PCM.PN.PUL ---
Subjective: The patient was seen and examined at the bedside this morning. Events from the last 24 hours have been reviewed. The patient is currently afebrile, hemodynamically stable and maintaining appropriate oxygen saturations on 4 L/min via nasal cannula. The patient's respiratory status is essentially at its baseline. Objective: The patient's most recent lab work, culture data and imaging studies have all been personally reviewed. - Physical Exam General: Alert, Cooperative, No apparent distress HEENT: Atraumatic, PERRLA, Normocephalic Oral: No Gingival or Mucosal Lesions/ Ulcerations Neck: Supple, No Nodes, Trachea Midline Lungs: Diminished, Wheezes Cardiovascular: Normal S1, Normal S2, No murmurs, - - Irregular Abdomen: Bowel Sounds Present, Soft, Non Tender, Obese Extremities: No clubbing, No cyanosis, Edema Skin: - - No significant change from previous Musculoskeletal: No Tenderness to Palpation of Joints or Extremities Lymphatic: No Cervical, Supraclavicular, or Inguinal Adenopathy Neurological: Cranial nerves II-XII grossly intact, Neuro grossly intact Psych/Mental Status: Normal Affect Vital Signs Temp Pulse Resp BP Pulse Ox 97.5 F L 69 20 H 119/71 95 06/24/19 03:00 06/24/19 03:27 06/24/19 03:00 06/24/19 03:00 06/24/19 03:00 Oxygen Flow Rate (L/min) 5 Oxygen Delivery Method Nasal Cannula Weight: 231 lb 0.711 oz Body Mass Index (BMI) 28.1 Finger Stick Blood Glucose 192 Intake and Output for Last 24 Hours 06/22/19 06/23/19 06/24/19 23:59 23:59 23:59 Intake Total 240 / 440 1160 / 1160 360 / 360 Output Total 900 / 1250 1300 / 1300 700 / 700 Balance -660 / -810 -140 / -140 -340 / -340 Laboratory Tests Past 24 Hrs 06/24/19 06/24/19 05:10 05:10 WBC 6.8 RBC 3.73 L Hgb 11.2 L Hct 35.3 L MCV 94.6 H MCH 30.0 MCHC 31.7 L RDW Std Deviation 46.1 H RDW Coeff of Jarvis 13.5 Plt Count 301 MPV 8.5 Sodium 134 L Potassium 4.6 Chloride 95 L Carbon Dioxide 33.0 H Anion Gap 6 BUN 29 H Creatinine 0.91 Estim Creat Clear Calc 76.09 Est GFR (MDRD) Af Amer 102 Est GFR (MDRD) Non-Af 85 BUN/Creatinine Ratio 31.8 H Glucose 135 H Calcium 8.7 Clinical Impression(s) from Imaging Studies Chest X-Ray 06/22/19 10:55 IMPRESSION: Since prior study, there is been mild to moderate degree of progressive pleural parenchymal changes at the left lung base. Electronically Signed: Momo Burns, at 11:29 EDT , Service support , Medical Necessity - Tobacco Use Smoking Status: Former smoker Assessment/Plan All Active Problems (Last Reviewed 06/13/19 @ 12:02 by Laura Allan NP-Serge) Tobacco abuse (Resolved) Sepsis due to Escherichia coli (Resolved) RECOMMENDATIONS: 1. Continue scheduled bronchodilators as ordered. 2. Transition from IV steroids to prednisone 40 mg daily with plans to complete a 5-day burst. 3. Resume Eliquis. 4. I would recommend that the patient be evaluated by thoracic surgery at some point in the future. This can be arranged on an outpatient basis. 5. Provide patient with incentive spirometer and encourage use. 6. Wean supplemental oxygen to maintain saturations at or above 90%. 7. Follow-up in the pulmonary medicine clinic within 2 weeks of discharge. IMPRESSIONS: 1. Acute on chronic hypoxemic respiratory failure/baseline severe mixed ventilatory defect/recurrent pleural effusion At his baseline, the patient requires 2 to 3 L/min of supplemental oxygen via nasal cannula. He has a history of a severe mixed ventilatory defect in the setting of an extensive smoking history, radiation treatment to the right lung and a loculated left-sided pleural effusion. The patient's left-sided effusion has been tapped a multitude of times and all 3 of his last pleural fluid cytology were negative for the presence of malignant cells. It is oftentimes very difficult to ascertain the true symptoms that is bothering the patient, as he frequently goes off on tangents unrelated to the questions being posed during conversation. Nevertheless, at this time, the patient does appear to be relatively close to what his baseline respiratory status truly is. With regard to the patient's pleural effusion, given its complicated nature, he would likely benefit from being evaluated by a thoracic surgeon, at some point in the future. I do not think that performing an additional thoracentesis at this time is likely to offer any substantial benefit to him. The patient can be continued on scheduled bronchodilators as ordered. Recommend transitioning from IV steroids to prednisone 40 mg daily with plans to complete a 5-day burst. The patient is already on a triple therapy nebulizer regimen at his [facility] facility in the form of DuoNeb's and budesonide. This can be continued at discharge. Follow-up in the pulmonary medicine clinic after discharge. 2. Chronic heart failure with preserved ejection fraction/paroxysmal atrial fibrillation Continue current medical management as tolerated. Eliquis can be resumed from my perspective. 3. History of non-small cell lung cancer status post radiation treatment Complicates care, management, recovery and prognosis. Continue outpatient follow-up with oncology as scheduled. This note was generated with [employer] dictation software. It may contain incorrect words, spelling, and punctuation that were not noted in checking the note before signing. Code Visit Inpatient E&M: 22466 Subs Hosp L2
[2019-06-24] MEDS: Famotidine 20 MG Tablet 10 MG PO (08:47)
[2019-06-24] MEDS: Sertraline 50 MG Tablet PO (08:47)
[2019-06-24] MEDS: APIXABAN 2.5 MG TABLET PO ×2 (08:48→21:13)
--- NOTE | 2019-06-24 10:52 | NURSING ---
Spoke with [facility] [place] to see if patient could return today. She stated he would require reauthorization. This RN faxed the requested items and she stated she would begin the -preauth process.
--- NOTE | 2019-06-24 14:28 | PCM.PROGNOTE ---
Subjective: Patient seen and examined. Breathing continues to be at baseline. Patient needs pre-CERT to return to SNF. No new complaints. - Physical Exam General: Alert, Oriented x3, Cooperative HEENT: Atraumatic, PERRLA, EOMI, Normocephalic Neck: Supple, No JVD, Negative Carotid Bruits Lungs: Diminished, Wheezes Cardiovascular: - - Atrial flutter, rate controlled Abdomen: Bowel Sounds Present, Soft, Non Tender, Non-Distended Extremities: No clubbing, No cyanosis, Capillary Refill Less than 3 Seconds, Edema - Nonpitting bilateral lower extremities, Cesario wraps in place Skin: No rashes, No breakdown Musculoskeletal: No Tenderness to Palpation of Joints or Extremities Neurological: Cranial nerves II-XII grossly intact, Neuro grossly intact Psych/Mental Status: Normal Affect, Appropriate Vital Signs Temp Pulse Resp BP Pulse Ox 97.8 F 90 20 H 100/61 92 06/24/19 09:45 06/24/19 09:45 06/24/19 14:12 06/24/19 09:45 06/24/19 09:45 Oxygen Flow Rate (L/min) 3 Oxygen Delivery Method Nasal Cannula Weight: 231 lb 0.711 oz Body Mass Index (BMI) 28.1 Finger Stick Blood Glucose 192 Intake and Output for Last 24 Hours 06/22/19 06/23/19 06/24/19 23:59 23:59 23:59 Intake Total 240 / 440 1160 / 1160 760 / 760 Output Total 900 / 1250 1300 / 1300 1000 / 1000 Balance -660 / -810 -140 / -140 -240 / -240 Laboratory Tests Past 24 Hrs 06/24/19 06/24/19 05:10 05:10 WBC 6.8 RBC 3.73 L Hgb 11.2 L Hct 35.3 L MCV 94.6 H MCH 30.0 MCHC 31.7 L RDW Std Deviation 46.1 H RDW Coeff of Jarvis 13.5 Plt Count 301 MPV 8.5 Sodium 134 L Potassium 4.6 Chloride 95 L Carbon Dioxide 33.0 H Anion Gap 6 BUN 29 H Creatinine 0.91 Estim Creat Clear Calc 76.09 Est GFR (MDRD) Af Amer 102 Est GFR (MDRD) Non-Af 85 BUN/Creatinine Ratio 31.8 H Glucose 135 H Calcium 8.7 Medical Necessity - Tobacco Use Smoking Status: Former smoker Assessment/Plan All Active Problems (Last Reviewed 06/13/19 @ 12:02 by Laura Allan NP-C) Tobacco abuse (Resolved) Sepsis due to Escherichia coli (Resolved) 1. Acute on chronic hypoxic and hypercapnic respiratory failure secondary to acute on chronic COPD exacerbation and increasing chronic/recurrent left pleural effusion-most recent thoracentesis February 2018 pleural fluid found to be exudative, cytology negative for malignancy. Chest x-ray on admission shows mild to moderate degree of progressive left lung base pleural effusion. Patient with increased oxygen requirements and wheezing on exam. Denies cough, fever, chills. Dr. Mina, pulmonary medicine consulted. No plans for thoracentesis at this time. Continue supplement oxygen to maintain O2 sat above 90%. IV Solu-Medrol. Albuterol and DuoNeb aerosols. 2. Chronic diastolic CHF-recent echocardiogram May 28, 2019 demonstrated an EF of 53%, mild tricuspid valve insufficiency, pulmonary artery systolic pressure 50mmhg. BNP 132. Patient does have pitting lower extremity edema however do not feel acute CHF is present. Continue home Lasix regimen. Cesario wraps bilateral lower extremities. 3. Paroxysmal atrial fibrillation/a flutter-EKG in ER atrial flutter with controlled rate. Continue Eliquis. Continue beta-ximena regimen. 4. History of recurrent UTIs due to chronic urinary retention with chronic Avila-history of prostate cancer as well. 5. History of non-small cell right lung cancer-following with Dr. Teran. Completed radiation August 2018. 6. Hypertension-stable, continue home lisinopril regimen. 7. Hyperlipidemia-continue statin. 8. Chronic debility-mostly wheelchair-bound. Resides at SNF. PT/OT. 9. Depression-continue sertraline regimen. 10. History of alcohol and tobacco abuse-denies current use. Encouraged continued cessation. 11. Chronic macrocytic anemia-at baseline, trend CBC. DVT prophylaxis-Eliquis CODE STATUS: Discussed with patient. senior living paperwork shows DNR CC however patient would like to be DNR CCA, no intubation. Discharge planning: Return to SNF pending pre-CERT. This patient was seen by Faviola Fischer NP-C under the supervision of Dr. Aguilar.
[2019-06-24] MEDS: 0.9% NaCl Peripheral Flush Adult/Peds IV (21:12)
[2019-06-24] MEDS: Atorvastatin Calcium 10 MG Tablet PO (21:13)
[2019-06-24] MEDS: Metoprolol Tartrate 25 MG Tablet 12.5 MG PO (21:13)
[2019-06-25] VITALS (13 sets, daily range): BP systolic 111–139; BP diastolic 63–73; PULSE 71–97; RESP 16–22; TEMP 36.5–36.8; O2SAT 89–97
[2019-06-25] MEDS: Ipratropium/Albuterol Sulfate 3 ML AMPUL.NEB INHALATION ×3 (06:38→14:25)
[2019-06-25] MEDS: APIXABAN 2.5 MG TABLET PO (08:24)
[2019-06-25] MEDS: Famotidine 20 MG Tablet 10 MG PO (08:24)
[2019-06-25] MEDS: Sertraline 50 MG Tablet PO (08:24)
[2019-06-25] MEDS: Metoprolol Tartrate 25 MG Tablet 12.5 MG PO (08:24)
--- NOTE | 2019-06-25 09:29 | PN_ITS ---
Subjective: Patient did okay overnight. Patient did report acute onset of shortness of breath associated with getting cleaned up. Patient has been maintained on 3 to 4 L nasal cannula oxygen. Patient denies any chest pain, abdominal pain, nausea or vomiting. Patient does have a Avila in place. - Physical Exam General: Alert, Oriented x3, Cooperative, No apparent distress, Well developed, Well nourished, - - Appears older than stated age. HEENT: Atraumatic, PERRLA, EOMI, - - No scleral icterus or injection noted. Oral: Moist Mucosa, No Gingival or Mucosal Lesions/ Ulcerations Neck: Supple, No JVD, No Nodes, Trachea Midline Lungs: No rhonchi, No rales, Diminished - Especially lateral left, Wheezes - Sporadic Cardiovascular: Normal S1, Normal S2, Irregular Rate, No rub noted, No Gallop Abdomen: Bowel Sounds Present, Soft, Non Tender, Non-Distended Extremities: No clubbing, No cyanosis, Edema Skin: No rashes Musculoskeletal: No Tenderness to Palpation of Joints or Extremities Lymphatic: No Cervical, Supraclavicular, or Inguinal Adenopathy Neurological: Cranial nerves II-XII grossly intact, Neuro grossly intact, Motor Exam 5/5 strength throughout Psych/Mental Status: Alert and oriented to time, place, person, mood and affect Vital Signs Temp Pulse Resp BP Pulse Ox 36.8 C 97 22 H 139/73 H 90 06/25/19 08:20 06/25/19 08:24 06/25/19 08:20 06/25/19 08:24 06/25/19 08:20 Oxygen Flow Rate (L/min) 3 Oxygen Delivery Method Nasal Cannula Weight: 104.8 kg Body Mass Index (BMI) 28.1 Finger Stick Blood Glucose 192 Intake and Output for Last 24 Hours 06/23/19 06/24/19 06/25/19 23:59 23:59 23:59 Intake Total 1160 / 1160 1010 / 1010 360 / 360 Output Total 1300 / 1300 1300 / 1300 875 / 875 Balance -140 / -140 -290 / -290 -515 / -515 Medical Necessity - Tobacco Use Smoking Status: Former smoker Assessment/Plan All Active Problems (Last Reviewed 06/13/19 @ 12:02 by MARCY Benítez) Tobacco abuse (Resolved) Sepsis due to Escherichia coli (Resolved) RECOMMENDATIONS: 1. Continue scheduled bronchodilators as ordered. 2. Transition from IV steroids to prednisone 40 mg daily with plans to complete a 5-day burst. 3. Continue Eliquis. 4. Patient should receive an outpatient cardiothoracic surgery evaluation for loculated pleural effusion 5. Provide patient with incentive spirometer and encourage use. 6. Wean supplemental oxygen to maintain saturations at or above 90%. 7. Follow-up in the pulmonary medicine clinic within 2 weeks of discharge. IMPRESSIONS: 1. Acute on chronic hypoxemic respiratory failure/baseline severe mixed ventilatory defect/recurrent pleural effusion At his baseline, the patient requires 2 to 3 L/min of supplemental oxygen via nasal cannula. He has a history of a severe mixed ventilatory defect in the setting of an extensive smoking history, radiation treatment to the right lung and a loculated left-sided pleural effusion. Has had multiple thoracentesis of the left chest and none have been positive for cytology. However, patient would likely benefit from a cardiothoracic evaluation and possible pleurodesis versus VATS procedure. Patient is seen at the NH at baseline, which complicates referral process, but this can be completed as an outpatient. Patient appears to be at his baseline from a respiratory standpoint. 2. Chronic heart failure with preserved ejection fraction/paroxysmal atrial fibrillation Continue current medical management as tolerated. Eliquis can be resumed from my perspective. 3. History of non-small cell lung cancer status post radiation treatment Complicates care, management, recovery and prognosis. Continue outpatient follow-up with oncology as scheduled. Code Visit Inpatient E&M: 62052 [facility] Hosp L2
[2019-06-25] MEDS: predniSONE 20 MG Tablet 40 MG PO (10:05)
--- NOTE | 2019-06-25 11:25 | PCM.EXTCARCO ---
- Diet 06/22/19 13:40 Diet: Cardiac/Low Cholesterol Food consistency:: Regular Liquid Consistency:: Regular/Thin - Routine Orders/Code Status Enema Type: Fleetz Enema Frequency: Daily PRN Suppository Type: Dulcolax 10mg Suppository Frequency: Daily PRN O2 Liters per Minute: 3-6 O2 Frequency: Continuous Keep PO Greater than or Equal to (%): 90 Routine Lab Work: CBC, BMP, - - Q Week Code Status: DNRCC-A - Suggestions for Active Care Change Position every (hours): 2 Times a day to sit in chair: 3 - Therapies Physical Therapy: Eval and Treat Occupational Therapy: Eval and Treat - Problem/Diagnosis (1) Atrial fibrillation Status: Chronic Current Visit: No (2) COPD Status: Acute Current Visit: Yes (3) prostate cancer Status: Chronic Comment: status post radiation Current Visit: No (4) Alcoholism Status: Chronic Current Visit: No (5) Hypoxia Status: Chronic Current Visit: No (6) Tobacco abuse Status: Resolved Current Visit: No (7) Urinary retention Status: Chronic Current Visit: No (8) Non-small cell lung cancer (NSCLC) Status: Chronic Current Visit: No (9) Pleural effusion on left Status: Chronic Current Visit: No (10) Atelectasis of left lung Status: Chronic Current Visit: No - Allergies/Procedures Done in Hospital Allergies/Adverse Reactions: Allergies doxycycline Allergy (Verified 06/13/19 10:54) pt is unsure tetracycline Allergy (Verified 06/13/19 10:54) Rash venom-honey bee [bee venom (honey bee)] Allergy (Verified 06/13/19 10:54) Swelling Procedures: None - Type of Care/Length of Stay Estimated LOS: More Than 30 Days Type of Care Needed: Skilled Rehab Potential: Fair Prognosis: Fair - Additional Orders/Day of Discharge Additional Orders: Continue JOAN wraps bilateral lower extremities. Follow-up with pulmonary medicine in 2 weeks, patient will need an outpatient cardiothoracic surgery evaluation for loculated pleural effusion. This can be further discussed at outpatient follow-up with pulmonary medicine. H&P will serve as current which was dated: 06/22/19 Day of Discharge: 06/25/19 - Follow Up Care Primary Care Physician: Heladio Rios MD [Primary Care Provider] - Please follow up with your Primary Care Physician in: 1 Week Please Follow Up With: Laura Allna NP-C When: 2 Weeks Please Follow Up With: Gato Hardwick DO When: Consult palliative care at SNF if patient is ammendable
--- NOTE | 2019-06-25 11:49 | DS.PCM_ITS ---
Discharge Date and Diagnosis Date of Admission: 06/22/19 Date of Discharge: 06/25/19 - Primary Discharge Diagnosis Active and Suspected Problems (Last Reviewed 06/13/19 @ 12:02 by MARCY Benítez) 1. Acute on chronic hypoxic and hypercapnic respiratory failure secondary to a cute on chronic COPD exacerbation and increasing chronic/recurrent left pleural effusion 2. Chronic diastolic CHF 3. Paroxysmal atrial fibrillation/a flutter 4. History of recurrent UTIs due to chronic urinary retention with chronic Avila-history of prostate cancer as well. 5. History of non-small cell right lung cancer 6. Hypertension 7. Hyperlipidemia 8. Chronic debility 9. Depression 10. History of alcohol and tobacco abuse 11. Chronic macrocytic anemia - Secondary Discharge Diagnosis Chronic Problems (Last Reviewed 06/13/19 @ 12:02 by Laura Allan NP-Serge) Atrial fibrillation (Chronic) prostate cancer (Chronic) status post radiation Alcoholism (Chronic) Hypoxia (Chronic) Urinary retention (Chronic) Non-small cell lung cancer (NSCLC) (Chronic) Pleural effusion on left (Chronic) Atelectasis of left lung (Chronic) Hospital Course and Treatment Imaging Results: Diagnostic Data Chest X-Ray 06/22/19 10:55 IMPRESSION: Since prior study, there is been mild to moderate degree of progressive pleural parenchymal changes at the left lung base. Electronically Signed: Momo Katy, at 11:29 EDT , Service support , Dr. Mina/Dr. Handy- Pulmonary Medicine Operations: None Procedures: None Summary of Care Provided: The patient is a 83 year old M admitted 06/22/19 due to increased shortness of breath. 1. Acute on chronic hypoxic and hypercapnic respiratory failure secondary to acute on chronic COPD exacerbation and increasing chronic/recurrent left pleural effusion-most recent thoracentesis February 2018 pleural fluid found to be exudative, cytology negative for malignancy. Chest x-ray on admission shows mild to moderate degree of progressive left lung base pleural effusion. Patient with increased oxygen requirements and wheezing on exam. Denies cough, fever, chills. Dr. Mina, pulmonary medicine consulted. No plans for thoracentesis at this time. Continue supplement oxygen to maintain O2 sat above 90%. Patient was transitioned from IV Solu-Medrol to prednisone 40 mg daily x5 days. Pulmonary medicine recommending outpatient cardiothoracic surgery evaluation for loculated pleural effusion. This can further be discussed at outpatient follow- up with pulmonary medicine. Follow-up with pulmonary medicine in 2 weeks. 2. Chronic diastolic CHF-recent echocardiogram May 28, 2019 demonstrated an EF of 53%, mild tricuspid valve insufficiency, pulmonary artery systolic pressure 50mmhg. BNP 132. Patient does have pitting lower extremity edema however do not feel acute CHF is present. Continue home Lasix regimen. Cesairo wraps bilateral lower extremities. 3. Paroxysmal atrial fibrillation/a flutter-EKG in ER atrial flutter with controlled rate. Continue Eliquis. Continue beta-ximena regimen. 4. History of recurrent UTIs due to chronic urinary retention with chronic Avila-history of prostate cancer as well. 5. History of non-small cell right lung cancer-following with Dr. Teran. Com pleted radiation August 2018. 6. Hypertension-stable, continue home lisinopril regimen. 7. Hyperlipidemia-continue statin. 8. Chronic debility-mostly wheelchair-bound. Resides at SNF. PT/OT. 9. Depression-continue sertraline regimen. 10. History of alcohol and tobacco abuse-denies current use. Encouraged continued cessation. 11. Chronic macrocytic anemia-at baseline, trend CBC. General: Alert, Oriented x3, Cooperative HEENT: Atraumatic, PERRLA, EOMI, Normocephalic Neck: Supple, No JVD, Negative Carotid Bruits Lungs: Diminished, Wheezes Cardiovascular: - - Atrial flutter, rate controlled Abdomen: Bowel Sounds Present, Soft, Non Tender, Non-Distended Extremities: No clubbing, No cyanosis, Capillary Refill Less than 3 Seconds, Edema - Nonpitting bilateral lower extremities, Cesario wraps in place Skin: No rashes, No breakdown Musculoskeletal: No Tenderness to Palpation of Joints or Extremities Neurological: Cranial nerves II-XII grossly intact, Neuro grossly intact Psych/Mental Status: Normal Affect, Appropriate Patient seen and examined prior to discharge. Physical assessment as noted above. Patient is stable for discharge with follow up recommendations as noted above. Recommend palliative care consult at SNF if patient is amendable. This patient was seen by MARCY Neri under the supervision of Dr. Aguilar. - Physical Exam Vital Signs Temp Pulse Resp BP Pulse Ox 98.2 F 85 16 139/73 H 90 06/25/19 08:20 06/25/19 10:41 06/25/19 10:41 06/25/19 08:24 06/25/19 08:20 Oxygen Flow Rate (L/min) 3 Oxygen Delivery Method Nasal Cannula Weight: 231 lb 0.711 oz Body Mass Index (BMI) 28.1 Finger Stick Blood Glucose 192 Intake and Output for Last 24 Hours 06/23/19 06/24/19 06/25/19 23:59 23:59 23:59 Intake Total 1160 / 1160 1010 / 1010 360 / 360 Output Total 1300 / 1300 1300 / 1300 875 / 875 Balance -140 / -140 -290 / -290 -515 / -515 Home Medications: Medications to take at Discharge Albuterol Aerosols [Ventolin Aerosols] 2.5 mg INHALATION Q4H PRN PRN 05/27/19 Atorvastatin Calcium 1 tab PO DAILY 05/27/19 Budesonide Aerosol [Pulmicort Respules] 1 inhaler INHALATION BID 05/27/19 Furosemide [Lasix] 40 mg PO DAILY 05/27/19 Glycopyrrolate/Formoterol Fum [Bevespi Aerosphere Inhaler] 2 puff INHALATION Q12H 05/27/19 Ipratropium/Albuterol Sulfate [Duoneb] 3 ml INHALATION Q4H.RT PRN 05/27/19 L. Acidophilus/L.bulgaricus [Lactobacillus Tablet] 1 ea PO DAILY 05/27/19 Lutein Extract/Zeaxanthin Ext [Lutein 15 mg Softgel] 1 ea PO TUFR 05/27/19 Ondansetron HCl [Zofran] 4 mg PO Q6H PRN 05/27/19 Ranitidine [Zantac] 75 mg PO DAILY 05/27/19 Sertraline HCl [Zoloft] 50 mg PO DAILY 05/27/19 Apixaban [Eliquis] 2.5 mg PO BID #60 tab 05/31/19 Metoprolol Tartrate [Lopressor (beta ximena)] 12.5 mg PO BID #30 tab 05/31/19 Acetaminophen [Tylenol] 650 mg PO Q6H PRN PRN 06/22/19 Albuterol Inhaler [Ventolin Hfa] 2 puff INHALATION Q4H PRN PRN 06/22/19 Bisacodyl [Dulcolax] 10 mg RECTAL DAILY PRN PRN 06/22/19 Calcium Carbonate/Simethicone [[place] Heartburn+Gas] 1 - 2 ea PO Q6H PRN PRN 06/22/19 Citric AC/Gluconolact/Mag Carb [Renacidin Irrigation Solution] 30 ml IR DAILY 06/22/19 Ergocalciferol [Vitamin D] 50,000 unit PO WE 06/22/19 Guaifenesin [Mucinex] 600 mg PO BID PRN PRN 06/22/19 Guaifenesin [Robafen] 10 ml PO Q6H PRN 06/22/19 Loperamide [Imodium] 2 mg PO PRN PRN 06/22/19 Magnesium Hydroxide [Milk Of Magnesia] 30 ml PO DAILY PRN PRN 06/22/19 Na Phos,M-B/Na Phos,Di-Ba [Fleet Enema] 1 bottle RECTAL DAILY PRN PRN 06/22/19 Naphazoline HCl/Glycerin [Clear Eyes Redness Relief Drop] 2 drp OP Q4H PRN 06/22/19 Olopatadine HCl [Patanol] 1 drp EACH EYE BID PRN 06/22/19 Pectin [Throat Drops] 1 tab PO Q2H PRN 06/22/19 Peg 400/Hypromellose/Glycerin [Artificial Tears] 2 drp OP Q2H PRN 06/22/19 Phenazopyridine HCl 95 mg PO DAILY PRN 06/22/19 Polyethylene Glycol 3350 [Miralax] 17 gm PO DAILY PRN 06/22/19 Saliva Stimulant [Biotene Moisturizing Mouth] 15 ml MM Q8H PRN PRN 06/22/19 predniSONE tablet 40 mg PO DAILY@0800 tab 06/25/19 Primary Care Physician: Heladio Rios MD [Primary Care Provider] - Please follow up with your Primary Care Physician in: 1 Week Please Follow Up With: Laura Allan NP-C When: 2 Weeks Please Follow Up With: Gato Hardwick DO When: Consult palliative care at SNF if patient is ammendable Disposition: Group Home facility Minutes spent on discharge:: 35 Patient Condition:: Stable Medical Necessity - Tobacco Use Smoking Status: Former smoker Meaningful Use Info Meaningful Use Diagnoses (Choose all that apply): None applicable
--- NOTE | 2019-06-25 13:04 | CASEMGMT ---
Patient does not have a Healthcare POA or Healthcare LW. Rae ARAUJO GROCERY CARRIER
--- NOTE | 2019-06-25 15:12 | CASEMGMT ---
Addendum entered by Rae Navarro 06/25/19 15:30: SW received a phone call from [facility] and Rober Laureano and yane will transport patient back to [place] via cot at 4p. SW notified trade union secretary, airplane tester at [place], and RN. Rae GUERRA Original Note: Patient is ready for d/c to [place]. Faxed orders to [place]. SW called [facility] to arrange transport via wc van as patient has [facility]. Await return call from [employer]. Plan: d/c back to [place] under skilled level of care. Patient is a [facility] resident of [place]. Rae GUERRA
== END 2019-06-25 17:02 | disposition skilled nursing facility (03) | DRG 191 ==
LOC: ED 11:35 → PCU 13:45
PROVIDERS: Nurse Practitioner Family; Admitting Provider Internal Medicine; Emergency Provider Emergency Medicine; Family Provider Family Medicine; PCP Family Medicine; Referring Provider Internal Medicine; Visit Provider Internal Medicine
DX: J44.1 Chronic obstructive pulmonary disease with (acute) exacerbation (principal); I50.32 Chronic diastolic (congestive) heart failure; I13.0 Hypertensive heart and chronic kidney disease with heart failure and stage 1 through stage 4 chronic kidney disease, or unspecified chronic kidney disease; J98.11 Atelectasis; J96.11 Chronic respiratory failure with hypoxia; J96.12 Chronic respiratory failure with hypercapnia; N18.9 Chronic kidney disease, unspecified; I48.0 Paroxysmal atrial fibrillation; E78.5 Hyperlipidemia, unspecified; R33.9 Retention of urine, unspecified; K21.9 Gastro-esophageal reflux disease without esophagitis; F32.9 Major depressive disorder, single episode, unspecified; F10.20 Alcohol dependence, uncomplicated; Z79.01 Long term (current) use of anticoagulants; Z79.899 Other long term (current) drug therapy; Z99.81 Dependence on supplemental oxygen; Z99.3 Dependence on wheelchair; Z85.118 Personal history of other malignant neoplasm of bronchus and lung; Z85.46 Personal history of malignant neoplasm of prostate; Z92.3 Personal history of irradiation; Z87.440 Personal history of urinary (tract) infections; Z87.891 Personal history of nicotine dependence
CPT/HCPCS: 36415; 36600; 71045; 80048; 82803; 83880; 84484; 85025; 85027; 93005; 94640; 97110; 97162; 97166; 97530; 99285; 99406; A4216; J1940

== ENCOUNTER 2019-08-08 21:00 | Emergency (ER) | payer MEDICARE, SELFPAY ==
[2018-08-07 14:15] VITALS: BMI 30.4
[2019-07-25 13:39] VITALS: BMI 28.1
[2019-08-08 21:01] VITALS: BP 129/91; PULSE 94; RESP 24; TEMP 36.9; O2SAT 93; BMI 29.2
--- NOTE | 2019-08-08 21:11 | EKG12_ITS ---
Test Reason : SOB Blood Pressure : / mmHG Vent. Rate : 095 BPM Atrial Rate : 095 BPM P-R Int : 250 ms QRS Dur : 094 ms QT Int : 416 ms P-R-T Axes : 035 069 -68 degrees QTc Int : 522 ms Atrial Flutter Incomplete right bundle branch block Abnormal ECG Confirmed by ELVI STYLES, SAAD ([id number]), mapping editor LATIA JACK ([id number]) on 08/10/2019 1:29:03 PM Referred By: OZZY Confirmed By:DAYNE BOLES MD
--- NOTE | 2019-08-08 21:11 | RAD_ITS ---
STUDY: X-RAY CHEST REASON FOR EXAM: Male, 83 years old. Shortness of breath. History of COPD. TECHNIQUE: PA and lateral views of the chest. COMPARISON: June 22, 2019. FINDINGS: Telemetry wires overlie the chest. There is infiltrate at the right lung base along the horizontal fissure. There is persistent atelectatic versus infiltrative changes in left perihilar region and right lung base. Mild increase in bilateral pleural effusions Normal size heart. Normal mediastinum the brad are obscured by the adjacent infiltrates. There is atherosclerotic calcification of the aortic arch with tortuosity. The thoracic spine is obscured by the mediastinum. There is degenerative osteoarthritis of the bilateral shoulders. There is no demonstrated abnormality of the visualized soft tissue structures of the upper abdomen. RAD/Chest PA and Lateral IMPRESSION: 1. Increasing infiltrates at the right lung base and left perihilar region. 2. No New right upper lobe infiltrate. 3. Increasing pleural effusions. Electronically Signed: Marco A Brewer DO at 22:36 EDT Tel [phone], Service support ,
[2019-08-08] MEDS: Albuterol 2.5 MG/3 ML VIAL.NEB. INHALATION ×3 (21:20→22:33)
[2019-08-08] MEDS: Ipratropium/Albuterol Sulfate 3 ML AMPUL.NEB INHALATION (21:20)
[2019-08-08 21:21] VITALS: PULSE 94; RESP 18
--- NOTE | 2019-08-08 21:58 | ED.VIS.GEN ---
History of Present Illness Chief Complaint: Shortness of Breath Informant: Patient, SNF Onset: Days Context: Gradual Onset, Sudden Onset Timing: Continuous Quality: Shortness of breath, cough Location: Respiratory Current Severity: Mild Maximum Severity: Moderate Worsened by: Activity Relieved by: Better with rest Associated Symptoms: Productive cough Narrative: Patient is a poor informant. Sent from nursing facility because of effusion concern for congestive heart failure on x-ray. Patient denies fever, chills night sweats. He has history of COPD. He also has history of malignancy. Suspect the effusion is a malignant effusion. The effusion was noted on prior x-ray per my review. Patient denies leg pain, swelling discoloration or he denies history of PE or DVT. He denies chest pain. He denies GI symptoms. He denies urologic symptoms. Prior similar symptoms: Yes Recent Illness/Hospitalization: Yes - June 22, 2019 - Past Medical History (1) COPD Status: Acute (2) Alcoholism Status: Chronic (3) Atelectasis of left lung Status: Chronic (4) Atrial fibrillation Status: Chronic (5) Non-small cell lung cancer (NSCLC) Status: Chronic (6) Pleural effusion on left Status: Chronic (7) Urinary retention Status: Chronic (8) prostate cancer Status: Chronic Comment: status post radiation (9) Tobacco abuse Status: Resolved Past Medical History - Allergies and Home Meds Allergies/Adverse Reactions: Allergies doxycycline Allergy (Verified 08/08/19 21:07) pt is unsure tetracycline Allergy (Verified 08/08/19 21:07) Rash venom-honey bee [bee venom (honey bee)] Allergy (Verified 08/08/19 21:07) Swelling Primary Care Physician: Heladio Rios MD [Primary Care Provider] - Prior records reviewed: Yes Surgical History: no surgical history Lives: Long Term Smoking Status: Former smoker Alcohol: None Drugs: None - Family History Paternal Family History: Family History (Last Reviewed 07/25/19 @ 14:06 by MARCY Benítez) Father Brain cancer Mother Cervical cancer Family History: Reports: - - brain tumor Maternal Family History: Family History (Last Reviewed 07/25/19 @ 14:06 by MARCY Benítez) Father Brain cancer Mother Cervical cancer Family History: Reports: Cancer - cervical, Hypertension Review of Systems General: Denies: Chills, Fever, Sweats Eyes: Denies: Visual changes - bilaterally, Blurred Vision - bilaterally, Diplopia ENT: Denies: Bilateral ear pain, Rhinorrhea, Sore throat Cardiovascular: Denies: Chest pain, Palpitations Respiratory: Reports: Dyspnea, Cough, Sputum, Dyspnea on exertion. Denies: Orthopnea, Paroxysmal nocturnal dyspnea Gastrointestinal: Denies: Abdominal pain, Nausea, Vomiting, Diarrhea, Melena, Hematochezia Genitourinary: Denies: Dysuria, Hematuria, Frequency Musculoskeletal: Denies: Myalgias, Arthralgias, Neck pain, Back pain, Swelling, Extremity Pain Skin: Denies: Rash, Abscess, Wounds Neurological: Denies: Headache, Weakness, Numbness Hematologic: Denies: Easy bruising, Easy bleeding Allergy: Denies: Uticaria, Swelling of the mouth Physical Exam Vital Signs/Narrative: Vital Signs Temp Pulse Resp BP Pulse Ox 08/08/19 21:21 94 18 08/08/19 21:01 98.5 F 94 24 H 129/91 H 93 Inital Vital Signs reviewed: Yes General: Well nourished, Well developed, Unkempt Head: Normocephalic, Atraumatic Eyes: Perrl, EOMI. Negative for: Pale conjunctiva, Scleral icterus, - ENT: Moist mucous membranes, No rhinorrhea Neck: Supple, Nontender, No lymphadenopathy, No JVD Cardiovascular: Regular rate, Regular rhythm, No murmurs, Normal S1, Normal S2 Respiratory: No distress, Chest nontender, Wheezing, Diminished, Decreased Air Movement. Negative for: CTA bilaterally Abdomen: Soft, Nontender, Nondistended, Normal bowel sounds Rectal: Deferred Back: Nontender, Normal Inspection Extremities: Nontender, No edema, - - There is no asymmetry, swelling, discoloration, leg vein distention, palpable cords or tenderness along the distribution of the deep venous system. Skin: Normal color, No rash, No Trauma. Negative for: Cyanosis, Diaphoresis, Jaundice Neurological: Alert, Oriented x3, Cranial nerves II-XII grossly intact, Normal Strength, Normal Sensation Psychological: Normal affect Diagnostic/Tx/Re-eval Chest X-Ray - ED: 2 View, Read by ED Physician, Normal, Heart, Bony Structures, Chronic Changes, Right Infiltrate, Left Infiltrate, Left Effusion, - - Changes with atelectasis right. The effusion is unchanged from June 22. Impressions Chest X-Ray 08/08/19 21:11 IMPRESSION: 1. Increasing infiltrates at the right lung base and left perihilar region. 2. No New right upper lobe infiltrate. 3. Increasing pleural effusions. Electronically Signed: Marco A Brewer DO at 22:36 EDT Tel [phone], Service support , 08/08/19 21:11 Chest PA and Lateral [RAD] Stat Laboratory Results 08/08/19 21:15 Troponin I < 0.015 Troponin reveals no evidence of cardiac ischemia. - EKG Initial EKG Interpretation: Sinus Rhythm - Sinus rhythm with a ventricular rate of 95 and evidence of first-degree AV block. DE interval is 250 ms. QRS duration is 94 ms and pattern is consistent with an incomplete right bundle branch pattern. There is no ossific ST-T wave changes. This EKG is unchanged from June 22, 2019. - Medical Decision Making Since there is decreased breath sounds on the left need to evaluate for pneumonia versus pleural effusion versus other cause. Patient has wheezing throughout. He was treated with DuoNeb and albuterol since he has history of COPD. He is on oxygen continuously, 2 L by nasal cannula. He denies fever chills. Suspect exacerbation COPD. Need to evaluate for congestive heart failure versus pneumonia as well. Blood work was obtained earlier today and was not repeated. Patient has elevated CO2 which she has had in the past. White count was unremarkable. Troponin was obtained and is negative to evaluate for cardiac ischemia. EKG reveals no acute ischemia. EKG is unchanged from June 22, 2019. The chest x-ray was compared to chest x-ray obtained on June 22, 2019. Dr. Heladio Rios who is patient's physician was paged to discuss case since his x-ray is slightly worse compared to 5 weeks ago. Since he is not hemodynamically unstable and not hypoxic on baseline oxygen suspect patient can be discharged to home/retirement with antibiotics. Furthermore patient is DNR Comfort Care arrest. Case was discussed with Dr. Rios. Will discharge to nursing facility with burst of prednisone and antibiotic. ED Disposition - Plan for ED Patient: Disposition: Group Home Facility Diagnosis: COPD with acute exacerbation, Bronchospasm, Chronic respiratory failure with hypoxia, Malignant pleural effusion, Infiltrate of middle lobe of right lung present on imaging study Instructions: Copd Flare Prescriptions: Prednisone [Deltasone] 40 mg PO DAILY #10 tab Prescription Printed Levofloxacin [Levaquin] 750 mg PO DAILY #6 tab Prescription Printed Referrals: Heladio Rios MD [Primary Care Provider] - As Needed
[2019-08-08 22:32] VITALS: BP 105/64; PULSE 98; RESP 18; TEMP 37.2; O2SAT 98
[2019-08-08 22:33] VITALS: PULSE 100; RESP 18
[2019-08-08] MEDS: levoFLOXacin 750 MG Tablet PO (23:10)
[2019-08-08] MEDS: predniSONE 20 MG Tablet 60 MG PO (23:10)
[2019-08-08 23:15] VITALS: BP 136/67; PULSE 98; RESP 20; O2SAT 94
--- NOTE | 2019-08-08 23:37 | ED.RN ---
PER DR. PRECIADO SEPSIS SCREEN COMPLETED.
== END 2019-08-08 23:50 | disposition skilled nursing facility (03) ==
PROVIDERS: Emergency Provider Emergency Medicine; Family Provider Family Medicine; PCP Family Medicine
DX: J44.1 Chronic obstructive pulmonary disease with (acute) exacerbation (principal); J96.11 Chronic respiratory failure with hypoxia; C34.90 Malignant neoplasm of unspecified part of unspecified bronchus or lung; J91.0 Malignant pleural effusion; J98.11 Atelectasis; I48.2 Chronic atrial fibrillation; F10.20 Alcohol dependence, uncomplicated; R33.9 Retention of urine, unspecified; Z79.52 Long term (current) use of systemic steroids; Z79.01 Long term (current) use of anticoagulants; Z79.899 Other long term (current) drug therapy; Z99.81 Dependence on supplemental oxygen; Z85.46 Personal history of malignant neoplasm of prostate; Z92.3 Personal history of irradiation; Z87.891 Personal history of nicotine dependence
CPT/HCPCS: 71046; 84484; 93005; 94640; 99285; A4216